=== PATIENT | male | born 1935 | race Caucasian/White ===

== ENCOUNTER 2022-08-29 12:28 | Outpatient (REF) | payer MEDICARE, BC, SELFPAY ==
[2022-08-29 12:42] LABS: Appearance Urine Slightly Cloudy (Clear); Bilirubin Urine Negative (Negative); Blood Urine Negative (Negative); Color Urine Yellow (Yellow); Glucose Urine Negative (Negative); Ketones Urine Negative (Negative); Leukocyte Esterase Urine Negative (Negative); Nitrite Urine Negative (Negative); Protein Urine Trace (Negative); Specific Gravity Urine 1.025 (1.000-1.030); Urobilinogen Urine 0.2 (0.2-1.0)
[2022-08-29 13:09] LABS: Bacteria Urine Few; RBC Urine 0-2 (0-2); Squamous Epithelial Cell Urine Few (None-Few); WBC Urine 0-2 (0-5)
== END 2022-08-29 12:29 | disposition home or self-care (01) ==
LOC: NPINS 12:28
PROVIDERS: PCP Family Medicine; Visit Provider Nurse Practitioner Gerontology
DX: R41.0 Disorientation, unspecified (principal)
CPT/HCPCS: 81003; 81015; 87086

== ENCOUNTER 2022-11-11 10:39 | Outpatient (REF) | payer MEDICARE, BC, SELFPAY ==
[2022-11-11 11:04] LABS: Appearance Urine Clear (Clear); Bilirubin Urine Negative (Negative); Blood Urine Trace-intact (Negative); Color Urine Yellow (Yellow); Glucose Urine Negative (Negative); Ketones Urine Negative (Negative); Leukocyte Esterase Urine Negative (Negative); Nitrite Urine Negative (Negative); Protein Urine Negative (Negative); Specific Gravity Urine 1.015 (1.000-1.030); Urobilinogen Urine 0.2 (0.2-1.0); pH Urine 5.5 (5.0-8.5)
[2022-11-11 11:10] LABS: Basophils Percent Auto 0.5 % (0.0-3.0); Eosinophils Percent Auto 1.6 % (0.0-7.0); Hematocrit 40.1 % (37.0-53.0); Hemoglobin* 13.8 gm/dL (13.5-17.5); Immature Granulocytes Pct Auto 0.5 %; Lymphocytes Percent Auto 10.5 % (20-44); Mean Corpuscular HGB Conc 34 gm/dL (32-36); Mean Corpuscular Hemoglobin 31 pg (26-34); Mean Corpuscular Volume 91 fL (80-100); Monocytes Percent Auto 8.6 % (0.0-11.0); Neutrophils Percent Auto 78.3 % (42.0-72.0); Platelet Count* 111 K/uL (140-440); RDW Coefficient of Variation % 12.7 % (11.5-15.5); Red Blood Count 4.42 m/uL (4.30-5.90)
[2022-11-11 11:11] LABS: Chloride* 100 mmol/L (96-114); Potassium* 3.9 mmol/L (3.6-5.1); Sodium* 135 mmol/L (135-149)
[2022-11-11 11:14] LABS: Anion Gap 11 mEq/L (7-15); Carbon Dioxide* 24 mmol/L (20-32); Creatinine* 0.8 mg/dL (0.5-1.5); Estimated Glomerular Filt Rate 86 ml/min; Slide Review Reflex No
[2022-11-11 11:15] LABS: Blood Urea Nitrogen* 11 mg/dL (7-30); Calcium* 8.9 mg/dL (8.4-10.6); Glucose* 185 mg/dL (60-115)
[2022-11-11 11:27] LABS: Bacteria Urine Few; RBC Urine 0-2 (0-2); WBC Urine 0-2 (0-5)
== END 2022-11-11 10:40 | disposition home or self-care (01) ==
LOC: NPINS 10:39
PROVIDERS: PCP Family Medicine; Visit Provider Family Medicine
DX: R41.0 Disorientation, unspecified (principal)
CPT/HCPCS: 80048; 81003; 81015; 85025; 87086

== ENCOUNTER 2023-03-08 10:20 | Emergency (ER) | payer MEDICARE, BC, SELFPAY ==
[2023-03-08] VITALS (29 sets, daily range): BP systolic 106–148; BP diastolic 74–101; PULSE 61–80; RESP 18; TEMP 36.8; O2SAT 85–96
--- NOTE | 2023-03-08 10:23 | ED.NURSE ---
Received report from Melanie, via phone NR nurse. Dr. Vaughan notified of reported symptoms from staff. MD directly to bedside.
--- NOTE | 2023-03-08 10:29 | CRLHL7_ITS ---
For Patients: As a result of the Cures Act, medical imaging exams and procedure reports are released immediately into your electronic medical record. You may view this report before your referring provider. If you have questions, please contact your health care provider. INDICATION: SOB HISTORY: Shortness of breath. COMPARISON: None. TECHNIQUE: Chest one-view. 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 Leads appear continuous. student financial services counselor leads overlie the patient. There is no acute airspace disease. There is no pneumothorax. Central airway is normal. Presumed ORIF changes of the right clavicular diaphysis. IMPRESSION: There is no acute airspace disease. Dictated by Henry Herrera MD @ 03/08/2023 11:04:52 AM Dictated by: Henry Herrera MD @ 03/08/2023 11:04:59 (Electronically Signed)
[2023-03-08 10:56] LABS: Basophils Absolute Auto 0.02 K/uL (0.00-0.30); Basophils Percent Auto 0.4 % (0.0-3.0); Eosinophils Absolute Auto 0.07 K/uL (0.00-0.50); Eosinophils Percent Auto 1.5 % (0.0-7.0); Hematocrit 41.7 % (37.0-53.0); Hemoglobin* 14.1 gm/dL (13.5-17.5); Immature Granulocytes Abs Auto 0.01 K/uL (0.00-0.30); Immature Granulocytes Pct Auto 0.2 %; Lymphocytes Percent Auto 13.7 % (20-44); Mean Corpuscular HGB Conc 34 gm/dL (32-36); Mean Corpuscular Hemoglobin 31 pg (26-34); Mean Corpuscular Volume 93 fL (80-100); Monocytes Percent Auto 12.2 % (0.0-11.0); Neutrophils Absolute Auto 3.47 K/uL (1.7-7.0); Platelet Count* 108 K/uL (140-440); Red Blood Count 4.51 m/uL (4.30-5.90); White Blood Count* 4.82 K/uL (4.50-11.00)
[2023-03-08 11:08] LABS: HCO3 VBG 27 mmol/L (21-28); PCO2 VBG 41 mmHG (40-50); PO2 VBG 29.6 mmHG (25-47); pH VBG 7.424 (7.32-7.43)
[2023-03-08 11:09] LABS: Slide Review Reflex No
[2023-03-08 11:10] LABS: Lactate Sepsis w/Reflex* 1.3 mmol/L (0.5-1.9)
[2023-03-08 11:19] LABS: INR 1.48 (0.91-1.10)
--- NOTE | 2023-03-08 11:21 | ED.GENADULT ---
HPI - General Adult General Date Seen: 03/08/23 Chief complaint: Weakness Stated complaint: Pain Time Seen by Provider: 03/08/23 10:27 Source: patient, family and RN notes reviewed Mode of arrival: wheelchair Limitations: no limitations History of Present Illness HPI narrative: Patient is an 87-year-old male brought in by his son for evaluation of shortness of breath and weakness. He lives at a care facility in assisted living, apparently the reports this morning that he had left arm weakness, right leg weakness and left facial weakness but patient and his son both deny any focal weakness. He says he has been short of breath for the past couple of days, worse since last night. He has had a little bit of a cough, denies fevers. He says he has been generally weak, usually uses a walker to get around but his son says he was not able to walk at all this morning. No speech difficulties. No vomiting or diarrhea. No black or bloody stools. Additional history provided when different children arrived, patient apparently has been having problems with shortness of breath for a number of weeks now. Has a cardiology appointment scheduled this Friday for evaluation of that. He is not on home oxygen, apparently just has periods of time where he complains of shortness of breath and breathes really heavily. This then resolves without intervention. Related Data Home Medications Medication Instructions Recorded Confirmed acetaminophen 325 mg tablet 650 mg PO Q4H PRN mild pain 03/08/23 03/08/23 apixaban 5 mg tablet (Eliquis) 5 mg PO BID 03/08/23 03/08/23 aspirin 81 mg tablet,delayed 81 mg PO DAILY 03/08/23 03/08/23 release atorvastatin 10 mg tablet 10 mg PO DAILY 03/08/23 03/08/23 donepezil 10 mg tablet 10 mg PO QPM 03/08/23 03/08/23 gabapentin 100 mg capsule 400 mg PO BID 03/08/23 03/08/23 levetiracetam 500 mg tablet 500 mg PO BID 03/08/23 03/08/23 lisinopril 20 mg tablet 20 mg PO DAILY 03/08/23 03/08/23 loperamide 2 mg capsule 2 mg PO Q4H PRN diarrhea 03/08/23 03/08/23 melatonin 3 mg tablet 3 mg PO HS PRN 03/08/23 03/08/23 metoprolol succinate 25 mg 25 mg PO BID 03/08/23 03/08/23 tablet,extended release 24 hr peg 400-propylene glycol 0.4 %-0.3 1 drp ophthalmic (eye) QPM 03/08/23 03/08/23 % eye gel drops (Systane Gel) sennosides 8.6 mg tablet (senna) 8.6 mg PO QAM 03/08/23 03/08/23 Allergies Allergy/AdvReac Type Severity Reaction Status Date / Time fexofenadine Allergy Unknown Verified 03/08/23 10:34 Iodinated Contrast Media Allergy Unknown Verified 03/08/23 10:34 pseudoephedrine Allergy Verified 03/08/23 10:34 Review of Systems Status of ROS: Reports: 10 or more systems reviewed and unremarkable except as noted in History and below [facility] Social History Smoking Status: Never smoker Do you use any of these nicotine containing products: None Second hand tobacco smoke exposure: No How often do you have a drink containing alcohol: never How often do you have six or more drinks on one occasion: Never AUDIT-C Alcohol total score: 0 Non-prescribed substance use: denies use service: Yes Exam Narrative: Exam Narrative: Vital signs as noted above. In general, an alert, nontoxic elderly male. Required 2 person assist to transition from wheelchair to bed. Head: Normocephalic, atraumatic. Eyes: Pupils are equal reactive. Extraocular movements are full. Conjunctivae are normal. ENT: Mucous membranes are moist. Throat is normal. Neck: Supple without lymphadenopathy. Heart: Regular rate and rhythm. No murmur or rub. Lungs: Breath sounds are somewhat coarse bilaterally, no wheezing, mildly increased work of breathing. Abdomen: Soft and nontender. Protuberant. Extremities: Well perfused. No edema. No calf tenderness. Pulses intact. Neurologic: Patient is alert and oriented to person and place. Speech is fluent. There is mild asymmetry on the left side of his mouth when he talks, but face is otherwise symmetric. Strength is equal in upper lower extremities. Affect: Normal. Skin: Warm and dry. Well perfused. Const: Vital Signs, click to edit/add: Vital Signs - 24 hr 03/08/23 11:15 03/08/23 11:30 03/08/23 11:32 Pulse Rate 65 70 71 Blood Pressure 124/78 Pulse Oximetry 96 94 89 03/08/23 11:45 03/08/23 12:00 03/08/23 12:02 Pulse Rate 61 65 62 Blood Pressure 106/79 Pulse Oximetry 89 85 L 85 L 03/08/23 12:15 03/08/23 12:30 03/08/23 12:32 Pulse Rate 61 70 70 Blood Pressure 134/75 Pulse Oximetry 86 L 95 89 03/08/23 12:45 03/08/23 13:00 03/08/23 13:02 Pulse Rate 76 66 66 Blood Pressure 113/77 Pulse Oximetry 91 95 90 03/08/23 13:17 03/08/23 13:30 03/08/23 13:33 Pulse Rate 75 68 71 Blood Pressure 118/88 Pulse Oximetry 92 93 96 03/08/23 13:45 03/08/23 14:00 03/08/23 14:02 Pulse Rate 74 80 76 Blood Pressure 131/93 H Pulse Oximetry 92 94 94 03/08/23 14:15 03/08/23 14:30 03/08/23 14:32 Pulse Rate 72 79 74 Blood Pressure 136/94 H Pulse Oximetry 93 96 93 03/08/23 14:33 03/08/23 15:02 Pulse Rate 77 Blood Pressure 148/74 H Pulse Oximetry 90 Documenting provider has reviewed patient's vital signs: yes Course Course ED Course: Following initial evaluation, patient had labs drawn and had an x-ray of his chest. He also had an EKG which by my review showed a wide complex regular rhythm, he does have a pacemaker, I do not see obvious pacer spikes but his EKG more the pathology is consistent with a paced rhythm verses left bundle-branch block. A single PVC. Labs are notable for a normal white blood cell count of 4.8, normal hemoglobin, platelets are slightly low at 108,000 hundred eight thousand. His INR is 1.5, consistent with anticoagulation. Venous gas is normal, pCO2 is 41, pH is 7.42. Metabolic panel shows normal electrolytes, BUN of 19 creatinine of 1.1, blood sugar of 125. Lactate is normal at 1.3. LFTs are essentially normal his total bilirubin is 1.7, direct is 0.2, AST and ALT are normal, alk-phos is 83. Patient had a sandwich here, is feeling improved. Was up with his walker with minimal assistance. He does live at an assisted living where he can call for help at any time. He is no longer short of breath, O2 sats remain normal neurologic exam at baseline. Discussion with patient and his family in terms of observation admission versus going home at this time they would prefer to go home. They will follow up with Cardiology as planned. Return at any time for acute worsening or new symptoms. Vital Signs Vital signs: Initial Vital Signs Temperature 98.3 F 03/08/23 10:31 Temperature Source Temporal Artery Scan 03/08/23 10:31 Pulse Rate 65 03/08/23 10:31 Respiratory Rate 18 03/08/23 10:31 Blood Pressure 140/101 H 03/08/23 10:31 Blood Pressure Mean 114 H 03/08/23 10:31 Blood Pressure Position Sitting 03/08/23 10:31 Pulse Oximetry 94 03/08/23 10:31 Oxygen Delivery Method Room Air 03/08/23 10:31 Vital Signs Temperature 98.3 F 03/08/23 10:31 Pulse Rate 65 03/08/23 10:31 Respiratory Rate 18 03/08/23 10:31 Blood Pressure 140/101 H 03/08/23 10:31 Pulse Oximetry 94 03/08/23 10:31 Oxygen Delivery Method Room Air 03/08/23 10:31 Temperature 98.3 F 03/08/23 10:31 Pulse Rate 77 03/08/23 14:33 Respiratory Rate 18 03/08/23 10:31 Blood Pressure 148/74 H 03/08/23 15:02 Pulse Oximetry 90 03/08/23 14:33 Oxygen Delivery Method Room Air 03/08/23 10:31 Medical Decision Making Lab Data Labs: Lab Results 03/08/23 03/08/23 03/08/23 Range/Units 10:30 10:48 11:00 WBC 4.82 (4.50-11.00) K/uL RBC 4.51 (4.30-5.90) m/uL Hgb 14.1 (13.5-17.5) gm/dL Hct 41.7 (37.0-53.0) % MCV 93 (80-100) fL MCH 31 (26-34) pg MCHC 34 (32-36) gm/dL RDW Coeff of Edward 13.0 (11.5-15.5) % Plt Count 108 L (140-440) K/uL Neut % (Auto) 72.0 (42.0-72.0) % Lymph % (Auto) 13.7 L (20-44) % [place] % (Auto) 12.2 H (0.0-11.0) % Eos % (Auto) 1.5 (0.0-7.0) % Baso % (Auto) 0.4 (0.0-3.0) % Neut # (Auto) 3.47 (1.7-7.0) K/uL Lymph # (Auto) 0.70 L (0.90-2.90) K/uL [place] # (Auto) 0.60 (0.00-0.90) K/UL Eos # (Auto) 0.07 (0.00-0.50) K/uL Baso # (Auto) 0.02 (0.00-0.30) K/uL Abs Immat Gran (auto) 0.01 (0.00-0.30) K/uL Imm/Tot Granulo (auto) 0.2 % INR 1.48 H (0.91-1.10) VBG pH 7.424 (7.32-7.43) VBG pCO2 41 (40-50) mmHG VBG pO2 29.6 (25-47) mmHG VBG HCO3 27 (21-28) mmol/L Sodium 137 (135-149) mmol/L Potassium 4.5 (3.6-5.1) mmol/L Chloride 103 (96-114) mmol/L Carbon Dioxide 26 (20-32) mmol/L Anion Gap 8 (7-15) mEq/L BUN 19 (7-30) mg/dL Creatinine 1.1 (0.5-1.5) mg/dL Estimated GFR 65 ml/min Glucose 125 H (60-115) mg/dL Lactate 1.3 (0.5-1.9) mmol/L Calcium 8.5 (8.4-10.6) mg/dL Total Bilirubin 1.7 H (0.1-1.5) mg/dL Direct Bilirubin 0.2 (0.0-0.5) mg/dL AST 28 (12-35) U/L ALT 24 (4-50) U/L Alkaline Phosphatase 83 (40-150) U/L C-Reactive Protein 1.6 H (0.5-1.0) mg/dL NT-Pro-B Natriuret Pep 5960 pg/mL Total Protein 6.4 (6.0-8.3) g/dL Albumin 4.0 (3.3-5.0) g/dL TSH 2.260 (0.270-4.200) uIU/mL SARS-CoV-2 (PCR) Negative SARS-CoV-2 (Negative) Influenza Type A (PCR) Negative PCR FLU A (Negative) Influenza Type B (PCR) Negative PCR FLU B (Negative) RSV (PCR) Negative PCR RSV (Negative) POC Troponin I 0.01 (0.01-0.04) ng/ml Discharge Plan Discharge Clinical Impression: Weakness Patient Disposition: Home w/ Parent or Adult Condition: Improved Instructions: Weakness (ED) Additional Instructions: Cardiology follow-up as planned. For acute worsening, severe shortness of breath, fevers, inability to manage at home, return to the emergency department. Prescriptions: No Action acetaminophen 325 mg tablet 650 mg PO Q4H PRN (Reason: mild pain) loperamide 2 mg capsule 2 mg PO Q4H PRN (Reason: diarrhea) atorvastatin 10 mg tablet 10 mg PO DAILY levetiracetam 500 mg tablet 500 mg PO BID donepezil 10 mg tablet 10 mg PO QPM lisinopril 20 mg tablet 20 mg PO DAILY gabapentin 100 mg capsule 400 mg PO BID Eliquis 5 mg tablet 5 mg PO BID melatonin 3 mg tablet 3 mg PO HS PRN sennosides [senna] 8.6 mg tablet 8.6 mg PO QAM metoprolol succinate 25 mg tablet extended release 24 hr 25 mg PO BID Systane Gel 0.4-0.3 % drops,gel 1 drp ophthalmic (eye) QPM aspirin 81 mg tablet,delayed release (DR/EC) 81 mg PO DAILY Follow Up/Referrals: Yehuda Matias MD [Staff Physician] - Stand Alone [facility] Inst[facility]
[2023-03-08 11:23] LABS: Chloride* 103 mmol/L (96-114); Sodium* 137 mmol/L (135-149)
[2023-03-08 11:24] LABS: Potassium* 4.5 mmol/L (3.6-5.1)
[2023-03-08 11:27] LABS: Alanine Aminotransferase* 24 U/L (4-50); Alkaline Phosphatase* 83 U/L (40-150); Anion Gap 8 mEq/L (7-15); Aspartate Amino Transferase* 28 U/L (12-35); Bilirubin Direct* 0.2 mg/dL (0.0-0.5); Bilirubin Total* 1.7 mg/dL (0.1-1.5); Blood Urea Nitrogen* 19 mg/dL (7-30); Carbon Dioxide* 26 mmol/L (20-32); Creatinine* 1.1 mg/dL (0.5-1.5); Estimated Glomerular Filt Rate 65 ml/min; Glucose* 125 mg/dL (60-115); Total Protein* 6.4 g/dL (6.0-8.3)
[2023-03-08 11:28] LABS: Calcium* 8.5 mg/dL (8.4-10.6)
[2023-03-08 11:30] LABS: C Reactive Protein* 1.6 mg/dL (0.5-1.0)
[2023-03-08 11:40] LABS: NT Pro B Type NatriureticPept* 5960 pg/mL
[2023-03-08 11:43] LABS: PCR FLU A Negative PCR FLU A (Negative); PCR FLU B Negative PCR FLU B (Negative); PCR RSV Negative PCR RSV (Negative); Troponin, Point-of-Care* 0.01 ng/ml (0.01-0.04)
[2023-03-08 11:52] LABS: SARS PCR* Negative SARS-CoV-2 (Negative)
--- NOTE | 2023-03-08 13:53 | ED.NURSE ---
was able to ambulate with assist of one. did get to room 3 from room 5. was incontinent of urine.
--- NOTE | 2023-03-08 15:07 | ED.NURSE ---
family are willing to take him back to [facility]. [place] fritz was called and informed of him returning.
== END 2023-03-08 15:24 | disposition home or self-care (01) ==
PROVIDERS: Emergency Provider Emergency Medicine; PCP Family Medicine
DX: R53.1 Weakness (principal)
CPT/HCPCS: 36415; 71045; 80048; 80076; 82803; 83605; 83880; 84443; 84484; 85025; 85610; 86140; 87040; 87631; 94761; 99284

== ENCOUNTER 2023-03-18 11:29 | Outpatient (REF) | payer MEDICARE, BC, SELFPAY ==
[2023-03-18 12:44] LABS: Chloride* 102 mmol/L (96-114); Potassium* 4.9 mmol/L (3.6-5.1); Sodium* 138 mmol/L (135-149)
[2023-03-18 12:47] LABS: Anion Gap 9 mEq/L (7-15); Blood Urea Nitrogen* 22 mg/dL (7-30); Carbon Dioxide* 27 mmol/L (20-32); Estimated Glomerular Filt Rate 73 ml/min; Glucose* 93 mg/dL (60-115)
== END 2023-03-18 11:30 | disposition home or self-care (01) ==
LOC: NPINS 11:29
PROVIDERS: PCP Family Medicine; Visit Provider Nurse Practitioner Gerontology
DX: I48.0 Paroxysmal atrial fibrillation (principal); I63.50 Cerebral infarction due to unspecified occlusion or stenosis of unspecified cerebral artery
CPT/HCPCS: 80048

== ENCOUNTER 2023-05-13 11:28 | Outpatient (REF) | payer MEDICARE, BC, SELFPAY ==
[2023-05-13 13:32] LABS: Basophils Absolute Auto 0.02 K/uL (0.00-0.30); Basophils Percent Auto 0.4 % (0.0-3.0); Eosinophils Percent Auto 14.9 % (0.0-7.0); Hematocrit 40.9 % (37.0-53.0); Hemoglobin* 13.7 gm/dL (13.5-17.5); Lymphocytes Absolute Auto 1.21 K/uL (0.90-2.90); Lymphocytes Percent Auto 25.3 % (20-44); Mean Corpuscular HGB Conc 34 gm/dL (32-36); Mean Corpuscular Hemoglobin 31 pg (26-34); Mean Corpuscular Volume 93 fL (80-100); Monocytes Percent Auto 9.4 % (0.0-11.0); Neutrophils Absolute Auto 2.39 K/uL (1.7-7.0); Platelet Count* 132 K/uL (140-440); RDW Coefficient of Variation % 13.5 % (11.5-15.5); Red Blood Count 4.42 m/uL (4.30-5.90); White Blood Count* 4.78 K/uL (4.50-11.00)
[2023-05-13 13:40] LABS: Slide Review Reflex No
== END 2023-05-13 11:29 | disposition home or self-care (01) ==
LOC: NPINS 11:28
PROVIDERS: PCP Family Medicine; Visit Provider Psychiatry & Neurology Neurology
DX: R41.0 Disorientation, unspecified (principal)
CPT/HCPCS: 85025

== ENCOUNTER 2023-06-28 17:12 | Outpatient (REF) | payer MEDICARE, BC, SELFPAY ==
[2023-06-28 19:08] LABS: Appearance Urine Clear (Clear); Bilirubin Urine Negative (Negative); Blood Urine Negative (Negative); Color Urine Yellow (Yellow); Glucose Urine Negative (Negative); Ketones Urine Negative (Negative); Leukocyte Esterase Urine Negative (Negative); Nitrite Urine Negative (Negative); Protein Urine Negative (Negative); Specific Gravity Urine 1.015 (1.000-1.030); Urobilinogen Urine 0.2 (0.2-1.0); pH Urine 5.5 (5.0-8.5)
[2023-06-28 19:19] LABS: RBC Urine 0-2 (0-2); WBC Urine 0-2 (0-5)
== END 2023-06-28 17:13 | disposition home or self-care (01) ==
LOC: NPINS 17:12
PROVIDERS: PCP Family Medicine; Visit Provider Family Medicine
DX: R35.0 Frequency of micturition (principal)
CPT/HCPCS: 81001; 87086

== ENCOUNTER 2023-10-12 14:55 | Outpatient (CLI) | payer BC, SELFPAY ==
--- OUTSIDE RECORDS SUMMARY | 2023-10-13 19:00 | XMS_ITS | Referral Summary ---
Author Organization [place] Address [address] [place] [id number] Care Team Providers Care Agribusiness Professor Name Role Phone Yehuda Matias Primary Care Provider [phone] Social History Tobacco Use Types Packs/Day Years Used Date Smoking Tobacco: Never Assessed Adolescent Education Answer Date Record ed Getting School Help Needed Not on file 12/15 Sex and Gender Information Value Date Recorded Sex Assigned at Not on file Gender Identity Not on file Sexual Orientation Not on file Plan of Treatment Not on file Care Teams Agribusiness Professor Relationship Specialty Start Date End Date Yehuda Matias [address] [place] [address] PCP - General Family Medicine 09/12/21
--- OUTSIDE RECORDS SUMMARY | 2023-10-13 19:00 | XMS_ITS | Clinical Summary ---
Author Organization [facility] Address [place], [place] [address] Care Team Providers Care Aircraft Restorer Name Role Phone To Mata MD Primary Care Provider [phone] Allergies Active Allergy Reactions Criticality Noted Date Comments Iodinated Contrast Media Rash 01/18/2014 Fexofenadine Tongue Spasm Low 01/15/2019 Pseudoephedrine Tongue Spasm Low 01/15/2019 Medications Medication Sig Dispensed Refills Start Date End Date Status vit C-E-zinc ze-tgmk-xji-zeax (ICaps AREDS2) 250 mg-200 unit -12.5 mg-1 [...] Tablet 3 02/08/2022 Active miscellaneous medical supply [facility] EZ Tears gel caps. 2 [...] Type Department Care Team Description 08/21/2023 Telephone [employer] [facility] [address] [facility] [address] [place] [address] Kwabena White MD Questions 08/19/2023 Travel from Last 3 Months Immunizations Name Administration Dates Next Due AMB INFLUENZA IIV3 (AGE 65+ YRS) PF (Flu Clinic Only) 12/31/2018,12/16/2017 Amb Influenza, Inact (High-d ose) (Flu Clinic Only) 12/08/2013 COVID-19 vaccine (UFOstart AG-Bio NTech 30mcg/0.3mL) PFSAKINA 12/06/2020,05/10/2020,04/19/2020 Influenza RIV4 (Age [...] Comments Blood Pressure 124/70 03/14/2023 2:00 PM CHIEF CREW SCHEDULER Pulse 65 03/14/2023 2:00 PM CHIEF CREW SCHEDULER Temperature 36.6 ??C (97.9 ??F) 06/13/2022 9:00 AM CD T Respiratory Rate 16 06/12/2022 8:01 PM CDT Oxygen Saturation 94% 03/14/2023 2:00 PM CHIEF CREW SCHEDULER Inhaled Oxygen Concentration - - Weight 79.3 kg (174 lb 14.4 oz) 03/14/2023 2:00 PM CHIEF CREW SCHEDULER Height 165.1 cm (5' 5) 03/14/2023 2:00 PM CHIEF CREW SCHEDULER Body Mass Index 29.1 03/14/2023 2:00 PM CHIEF CREW SCHEDULER Plan of Treatment Upcoming Encounters Date Type Department Care Team (Late st Contact Info) Description 12/19/2023 Cardiac Device Check [employer] [facility] [phone] Health Maintenance Due Date Last Done Comments [...] Documents on File Type Date Recorded Patient Population Health Coach Expl anation Power of Missile Control Pilot 06/26/1999 06/26/1999 HEALTHCARE POWER OF DEPUTY K 9 * Full Code (Latest Code Status on [...] Code Status Discussion: Reviewed Preferences Care Teams Aircraft Restorer Relationship Specialty Start Date End Date To Mata MD [address] [place] [id number] PCP - General Family Practice 08/02/22
--- OUTSIDE RECORDS SUMMARY | 2023-10-13 19:00 | XMS_ITS | Clinical Summary ---
Author Organization [place] Address [address] [place] [address] Care Team Providers Care Machine Packager Name Role Phone Yehuda Matias Primary Care Provider Social History Tobacco Use Types Packs/Day Years [...] age to complete this topic Care Teams Machine Packager Relationship Specialty Start Date End Date Yehuda Matias [address] [place] [address] PCP - General Family Medicine 09/12/21
== END 2023-10-12 14:56 | disposition home or self-care (01) ==
LOC: AMB 10-13 18:59
PROVIDERS: PCP Family Medicine; Visit Provider Family Medicine
DX: R42 Dizziness and giddiness (principal)
CPT/HCPCS: A0425; A0429

== ENCOUNTER 2023-10-12 15:17 | Emergency (ER) | payer BC, SELFPAY ==
[2023-10-12 15:19] VITALS: BP 140/81; PULSE 83; RESP 22; TEMP 36.6; O2SAT 97; BMI 25.8
--- OUTSIDE RECORDS SUMMARY | 2023-10-12 15:51 | XMS_ITS | Referral Summary ---
Author Organization [facility] Address [address] [place] [id number] Care Team Providers Care Taxi Driver Supervisor Name Role Phone Yehuda Matias Primary Care Provider [phone] Social History Tobacco Use Types Packs/Day Years Used Date Smoking Tobacco: Never Assessed Adolescent Education Answer Date Record ed Getting School Help Needed Not on file 12/15 Sex and Gender Information Value Date Recorded Sex Assigned at Not on file Gender Identity Not on file Sexual Orientation Not on file Plan of Treatment Not on file Care Teams Taxi Driver Supervisor Relationship Specialty Start Date End Date Yehuda Matias [address] [place] [address] PCP - General Family Medicine 09/12/21
--- OUTSIDE RECORDS SUMMARY | 2023-10-12 15:51 | XMS_ITS | Clinical Summary ---
Author Organization [facility] Address [place], [place] [address] Care Team Providers Care Information Systems Manager Name Role Phone To Mata MD Primary Care Provider [phone] Allergies Active Allergy Reactions Criticality Noted Date Comments Iodinated Contrast Media Rash 01/18/2014 Fexofenadine Tongue Spasm Low 01/15/2019 Pseudoephedrine Tongue Spasm Low 01/15/2019 Medications Medication Sig Dispensed Refills Start Date End Date Status vit C-E-zinc wf-sidw-rjl-zeax (ICaps AREDS2) 250 mg-200 unit -12.5 mg-1 mg cap Take 1 Capsule by mouth two times daily. 0 06/02/2020 Active cyanocobalamin (VITAMIN B12) 1,000 mcg tabletIndications:V itamin B12 deficiency Take 1 Tablet (1,000 mcg) by mouth once daily. 90 Tablet 3 02/07/2021 Active Eliquis 5 mg tabletIndications:P aroxysmal atrial fibrillation (HC) TAKE ONE TABLET BY MOUTH TWICE DAILY 180 Tablet 3 10/23/2021 Active atorvastatin (LIPITOR) 10 mg tabletIndications:M ixed hyperlipidemia Take 1 Tablet (10 mg) by mouth at bedtime. 90 Tablet 3 02/08/2022 Active gabapentin (NEURONTIN) 100 mg capsuleIndications: Peripheral sensory neuropathy Take 4 Capsules (400 mg) by mouth at bedtime. 360 Capsule 3 02/08/2022 Active lisinopriL (PRINIVIL; ZESTRIL) 20 mg tabletIndications:H ypertension, unspecified type Take 1 Tablet (20 mg) by mouth once daily. 90 Tablet 3 02/08/2022 Active miscellaneous medical supply [facility] EZ Tears gel caps. 2 gel caps daily. 0 04/15/2022 Active levETIRAcetam (Keppra) 500 mg tablet Take 500 mg by mouth two times daily. Active acetaminophen (TYLENOL) 325 mg tabletIndications:P ain Take 2 Tablets (650 mg) by mouth every 4 hours if needed for Pain (For mild pain.). Max acetaminophen dose: 4000mg in 24 hrs. 0 06/12/2022 Active polyethylene glycol (MIRALAX; GLYCOLAX) 17 g per packet packetIndications:C hronic constipation Mix 17 g in liquid then take by mouth once daily if needed for Constipation. 0 06/12/2022 Active sennosides (SENNA) 8.6 mg tabletIndications:C hronic constipation Take 2 Tablets (17.2 mg) by mouth 2 times daily if needed for Constipation. 0 06/12/2022 Active metoprolol succinate (Toprol XL) 25 mg Sustained-Release tabletIndications:P aroxysmal atrial fibrillation (HC),Essential hypertension Take 1 Tablet (25 mg) by mouth two times daily. 45 Tablet 1 06/13/2022 Active melatonin 3 mg tabletIndications:D ifficulty sleeping Take 1 Tablet (3 mg) by mouth at bedtime if needed, may repeat once for Sleep. 0 06/13/2022 Active aspirin chewable 81 mg chewable tabletIndications:C erebrovascular disease Chew 1 Tablet (81 mg) by mouth once daily with a meal. 0 06/13/2022 Active donepeziL (ARICEPT) 10 mg tabletIndications:S eizure disorder (HC) Take 1 Tablet (10 mg) by mouth at bedtime. 03/14/2023 Active furosemide (LASIX) 20 mg tabletIndications:S OB (shortness of breath) Take 1 Tablet (20 mg) by mouth every morning. 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 Mixed hyperlipidemia 12/14/2009 Impaired fasting glucose 12/14/2009 Paroxysmal atrial fibrillation 07/10/2007 Unspecified essential hypertension TREMOR Severe aortic stenosis Resolved Problems Problem Noted Date Diagnosed Date Resolved Date Anticoagulation monitoring, DOAC 09/14/2020 08/08/2022 Anticoagulation monitoring, INR range 2-3 07/21/2013 09/14/2020 Encounter for Long-Term (Cur rent) Use of Anticoagulants 07/10/2007 07/21/2013 Overview: INR Goal Range: 2.0 - 3.0 Encounters Date Type Department Care Team Description 08/21/2023 Telephone [facility] [address] [facility] [address] [place] [address] Kwabena White MD Questions 08/19/2023 Travel from Last 3 Months Immunizations Name Administration Dates Next Due AMB INFLUENZA IIV3 (AGE 65+ YRS) PF (Flu Clinic Only) 12/31/2018,12/16/2017 Amb Influenza, Inact (High-d ose) (Flu Clinic Only) 12/08/2013 COVID-19 vaccine (Best Response Strategies-Bio NTech 30mcg/0.3mL) PFSAKINA 12/06/2020,05/10/2020,04/19/2020 Influenza RIV4 (Age 18+ Year s) PRESERV FREE 12/16/2019 Influenza, High-dose Inactivated 01/04/2016,01/08 Influenza, High-dose Quadriv alent Inactivated 12/24/2021 Influenza, IIV3 (Age >=3 years) 12/23/19 13,11/21/2011,12/14/2009,2008,01/06/2008,12/31/2004,01/17/2004,1 04/26/2002 Influenza, Inactivated AIIV4 (Age 65+ Years) Preserv Free 12/06/2020 Influenza, Inactivated IIV3 (Age 65+ Years) Preserv Free 01/14/2017 Pneumococcal Conj 20-valent (Prevnar 20) 05/15/2022 Pneumococcal Poly,23-Valent (Pneumovax) 03/10/2007 Pneumococcal conj 13-Valent (Prevnar 13) 07/21/2014 Td, Preservative Free (age > = 7 Years) 12/15/2008 Tdap 01/21/2012 Zoster (Shingrix-RZV, recombinant) 12/04/2018, Zoster (Zostavax-ZVL, live) 03/10/2012 Family History Medical History Relation Name Comments Arthritis Mother at 72, cau se uncertain Anesthesia Problem No Family History Relation Name Status Comments Mother Social History Tobacco Use Types Packs/Day Years Used Date Smoking Tobacco: Former Smokeless Tobacco: Former Chew Tobacco Cessation:Counseling Given: No Comments:quit years ago Alcohol Use Standard Drinks/Week Comments No 0 (1 standard drink = 0.6 oz pur e alcohol) PHQ-2 Answer Date Recorded PHQ-2 TOTAL SCORE 0 02/08/2022 Social Connections Answer Date Recorded Frequency of Communication with Friends and Fami ly Not on file 10/08/2022 Financial Resource Strain Answer Date R ecorded Difficulty of Paying Living Expenses 3 10/03/2021 Difficulty of Paying Living Expenses Not on file 10/03/2021 Food Insecurity Answer Date Recorded Worried About Running Out of Food in the Last Ye ar 1 10/03/2021 Transportation Needs Answer Date Record ed Lack of Transportation (Medical) 1 10/03/2021 Housing Stability Answer Date Recorded Unable to Pay for Housing in the Last Year 1 10/03/2021 Sex and Gender Information Value Date Recorded Sex Assigned at Not on file Gender Identity Not on file Sexual Orientation Not on file Obstetrics History Last Filed Vital Signs Vital Sign Reading Time Taken Comments Blood Pressure 124/70 03/14/2023 2:00 PM SHARPLES MACHINE OPERATOR Pulse 65 03/14/2023 2:00 PM SHARPLES MACHINE OPERATOR Temperature 36.6 ??C (97.9 ??F) 06/13/2022 9:00 AM CD T Respiratory Rate 16 06/12/2022 8:01 PM CDT Oxygen Saturation 94% 03/14/2023 2:00 PM SHARPLES MACHINE OPERATOR Inhaled Oxygen Concentration - - Weight 79.3 kg (174 lb 14.4 oz) 03/14/2023 2:00 PM SHARPLES MACHINE OPERATOR Height 165.1 cm (5' 5) 03/14/2023 2:00 PM SHARPLES MACHINE OPERATOR Body Mass Index 29.1 03/14/2023 2:00 PM SHARPLES MACHINE OPERATOR Plan of Treatment Upcoming Encounters Date Type Department Care Team (Late st Contact Info) Description 12/19/2023 Cardiac Device Check [employer] [facility] [phone] Health Maintenance Due Date Last Done Comments Tetanus booster 01/20/2022 01/21/2012, 12/15/2008 COVID-19 vaccine series (24 season) 2022 12/06/2020, 05/10/2020, 04/19/2020 Depression screening for age 12+ 02/08/2023 02/08/2022, 02/07/2021, 02/07/2021, Additional history exists Medicare Wellness for age 65+ 02/09/2023, 02/07/2021, 01/20/2020, Additional history exists Influenza for age 65+ 11/09/2023 12/24/2021 , 12/06/2020, 12/16/2019, Additional history exists BMI (ht and wt on same day) for age 18+ 03/14/2024 03/14/2023, 08/02/2022, 05/29/2022, Additional history exists Tdap Completed 01/21/2012 Zoster (shingles) series for age 50+ Completed 12/04/2018, 09/29/2018, 03/10/2012 Pneumococcal series for age 65+ Completed 05/15/2022, 07/21/2014, 03/10/2007 Advance Directives Documents on File Type Date Recorded Patient German Tutor Expl anation Power of Kettle Cleaner 06/26/1999 06/26/1999 HEALTHCARE POWER OF ANVIL WORKER * Full Code (Latest Code Status on File) Date Activated Date Inactivated Comments 06/08/2022 12:13 AM 06/13/2022 6:19 PM Question Answer Comments Code Status Discussion: Reviewed Preferences * Full Code Date Activated Date Inactivated Comments 06/05/2022 10:08 AM 06/06/2022 3:32 PM Question Answer Comments Code Status Discussion: Discussed * Full Code Date Activated Date Inactivated Comments 05/08/2022 9:23 AM 05/08/2022 4:49 PM Question Answer Comments Code Status Discussion: Reviewed Preferences Care Teams Information Systems Manager Relationship Specialty Start Date End Date To Mata MD [address] [place] [id number] PCP - General Family Practice 08/02/22
--- OUTSIDE RECORDS SUMMARY | 2023-10-12 15:51 | XMS_ITS | Clinical Summary ---
Author Organization [facility] Address [address] [place] [id number] Care Team Providers Care Product Promoter Sales Person Name Role Phone Yehuda Matias Primary Care Provider [phone] Social History Tobacco Use Types Packs/Day Years Used Date Smoking Tobacco: Never Assessed Adolescent Education Answer Date Record ed Getting School Help Needed Not on file 12/15 Sex and Gender Information Value Date Recorded Sex Assigned at Not on file Gender Identity Not on file Sexual Orientation Not on file Plan of Treatment Health Maintenance Due Date Last Done Comments ADVANCE CARE PLANNING 1935 ANNUAL REVIEW OF HM ORDERS 1935 RSV VACCINE ( & 60+) (1 - 1-dose 60+ series) 1995 FALL RISK ASSESSMENT 05/31/2000 DTAP/TDAP/TD IMMUNIZATION (2 - Td or Tdap) 01/20/2022 01/21/2012, 12/15/2008 MEDICARE ANNUAL WELLNESS VISIT 02/07/2022 02/07/2021, 01/20/2020 COVID-19 Vaccine ( season) 2022 06/15/2021, 12/06/2020, 05/10/2020, Additional history exists PHQ-2 (once per calendar year) 2023 INFLUENZA VACCINE (#1) 2023 , 12/16/2019, 12/31/2018, Additional history exists Pneumococcal Vaccine: 65+ Years Completed 07/21/2014, 03/10/2007 ZOSTER IMMUNIZATION Completed 12/04/2018, 09/29/2018, 03/10/2012 HPV IMMUNIZATION Aged Out No longer e ligible based on patient's age to complete this topic IPV IMMUNIZATION Aged Out No longer e ligible based on patient's age to complete this topic MENINGITIS IMMUNIZATION Aged Out No l onger eligible based on patient's age to complete this topic RSV MONOCLONAL ANTIBODY Aged Out No l onger eligible based on patient's age to complete this topic Care Teams Product Promoter Sales Person Relationship Specialty Start Date End Date Yehuda Matias [address] [place] [address] PCP - General Family Medicine 09/12/21
[2023-10-12 16:04] LABS: Basophils Absolute Auto 0.03 K/uL (0.00-0.30); Basophils Percent Auto 0.6 % (0.0-3.0); Hematocrit 41.5 % (37.0-53.0); Hemoglobin* 14.1 gm/dL (13.5-17.5); Immature Granulocytes Abs Auto 0.01 K/uL (0.00-0.30); Immature Granulocytes Pct Auto 0.2 %; Lymphocytes Percent Auto 7.8 % (20-44); Mean Corpuscular HGB Conc 34 gm/dL (32-36); Mean Corpuscular Hemoglobin 32 pg (26-34); Mean Corpuscular Volume 94 fL (80-100); Monocytes Percent Auto 7.6 % (0.0-11.0); Neutrophils Absolute Auto 3.88 K/uL (1.7-7.0); Neutrophils Percent Auto 71.8 % (42.0-72.0); Platelet Count* 108 K/uL (140-440); RDW Coefficient of Variation % 13.4 % (11.5-15.5); Red Blood Count 4.44 m/uL (4.30-5.90)
[2023-10-12 16:05] LABS: Slide Review Reflex No
[2023-10-12 16:17] LABS: Albumin* 3.7 g/dL (3.3-5.0); Chloride* 104 mmol/L (96-114); Sodium* 135 mmol/L (135-149)
[2023-10-12 16:18] LABS: Potassium* 4.5 mmol/L (3.6-5.1)
[2023-10-12 16:20] LABS: Alanine Aminotransferase* 17 U/L (4-50); Alkaline Phosphatase* 77 U/L (40-150); Anion Gap 3 mEq/L (7-15); Aspartate Amino Transferase* 23 U/L (12-35); Bilirubin Direct* 0.2 mg/dL (0.0-0.5); Bilirubin Total* 1.1 mg/dL (0.1-1.5); Blood Urea Nitrogen* 18 mg/dL (7-30); Carbon Dioxide* 28 mmol/L (20-32); Creatinine* 1.3 mg/dL (0.5-1.5); Est. Creatinine Clearance* 35.44; Estimated Glomerular Filt Rate 53 ml/min; Glucose* 142 mg/dL (60-115); Total Protein* 6.1 g/dL (6.0-8.3)
[2023-10-12 16:21] LABS: Calcium* 8.7 mg/dL (8.4-10.6)
[2023-10-12 16:23] LABS: C Reactive Protein* 2.2 mg/dL (0.5-1.0)
--- NOTE | 2023-10-12 16:33 | ED_ITS ---
HPI - General Adult General Chief complaint: Skin/Abscess/Foreign Body Stated complaint: Rash Time Seen by Provider: 10/12/23 15:18 Source: patient Mode of arrival: ambulatory Limitations: no limitations History of Present Illness HPI narrative: 88-year-old male, history of vascular dementia, paroxysmal atrial fibrillation, history of CVA, hypertension, polyneuropathy, tremor, BPH, macular degeneration, hyperlipidemia, aortic valve stenosis, cardiac pacemaker placement presenting today with a pruritic rash. Patient states the rash has been present for about 3 days. Started off on his legs but now has been spreading. Patient states that it is intensely pruritic. Denies chest pain, shortness of breath, cough, changes in his medications. No new foods or lotions. No new soaps. No recent traveling. Related Data Home Medications ?Medication ?Instructions ?Recorded ?Confirmed acetaminophen 325 mg tablet 650 mg PO Q4H PRN mild pain 03/08/23 10/12/23 apixaban 5 mg tablet (Eliquis) 5 mg PO BID 03/08/23 10/12/23 aspirin 81 mg tablet,delayed 81 mg PO DAILY 03/08/23 10/12/23 release atorvastatin 10 mg tablet 10 mg PO DAILY 03/08/23 10/12/23 donepezil 10 mg tablet 10 mg PO QPM 03/08/23 10/12/23 gabapentin 100 mg capsule 400 mg PO DAILY 03/08/23 10/12/23 levetiracetam 500 mg tablet 500 mg PO BID 03/08/23 10/12/23 lisinopril 20 mg tablet 20 mg PO DAILY 03/08/23 10/12/23 loperamide 2 mg capsule 2 mg PO Q4H PRN diarrhea 03/08/23 10/12/23 melatonin 3 mg tablet 3 mg PO HS PRN 03/08/23 10/12/23 metoprolol succinate 25 mg 25 mg PO BID 03/08/23 10/12/23 tablet,extended release 24 hr peg 400-propylene glycol 0.4 %-0.3 1 drp ophthalmic (eye) QPM 03/08/23 03/08/23 % eye gel drops (Systane Gel) sennosides 8.6 mg tablet (senna) 17.2 mg PO QAM 03/08/23 10/12/23 bisacodyl 10 mg rectal suppository 10 mg LA DAILY PRN 10/12/23 10/12/23 (Dulcolax (bisacodyl)) carbamide peroxide 6.5 % ear drops 4 drp otic (ear) PRN 10/12/23 (Ear Wax Removal Drops) carboxymethylcellulose 1 2 drp ophthalmic (eye) DAILY 10/12/23 10/12/23 %-glycerin 0.9 % eye gel drops (Refresh Optive) cyanocobalamin (vitamin B-12) 1,000 mcg PO DAILY 10/12/23 10/12/23 1,000 mcg tablet furosemide 20 mg tablet 20 mg PO DAILY 10/12/23 10/12/23 Previous Rx's ?Medication ?Instructions ?Recorded methylprednisolone 4 mg tablets in See Rx Instructions PO .COMPLEX 10/12/23 a dose pack (Medrol (Skyler)) #21 ea Allergies Allergy/AdvReac Type Severity Reaction Status Date / Time fexofenadine Allergy Unknown Verified 10/12/23 15:19 Iodinated Contrast Media Allergy Unknown Verified 10/12/23 15:19 pseudoephedrine Allergy Verified 10/12/23 15:19 Review of Systems Status of ROS: Reports: 10 or more systems reviewed and unremarkable except as noted in History and below [facility] Medical History POLST (Physician Orders for Life-Sustaining Treatment) ?Z78.9 - Other specified health status (ICD-10) Social History Smoking Status: Never smoker Do you use any of these nicotine containing products: None Second hand tobacco smoke exposure: No How often do you have a drink containing alcohol: never How often do you have six or more drinks on one occasion: Never AUDIT-C Alcohol total score: 0 Non-prescribed substance use: denies use service: Yes Exam Narrative: Exam Narrative: Well-nourished well-developed elderly patient in no acute distress. Alert and oriented. Answers questions appropriately. Mood and affect are appropriate. Thoughts are goal oriented and rational. No tangential or magical thinking noted. Patient speaks in full sentences without needing to catch his breath. Patient is very chatty, in a good mood. Make many jokes. HEENT: Normocephalic atraumatic. Extraocular muscles are intact. Conjunctivae are moist without any icterus noted. Moist mucous membranes, no rash noted inside the mouth. Posterior pharynx is normal. Neck is soft without lymphadenopathy. Cardiovascular: Heart is regular rate and rhythm. Lungs: Clear to auscultation bilaterally. Abdomen: Soft and nontender nondistended with normal bowel sounds. Extremities: Bilateral lower extremities have 1+ pitting edema to about the mid spear. His feet are quite swollen. Patient does not know if this is new or not. Skin: Well perfused . Patient does have a macular rash involving the extremities and the chest wall. He has areas of confluence over the knees and a spot over the chest wall as well. He also has some petechia of the anterior shins. Const: Vital Signs, click to edit/add: Vital Signs - 24 hr 10/12/23 17:15 Pulse Rate [Pulse Oximeter] 77 Respiratory Rate 20 Blood Pressure [Ri ght Upper Arm] 155/85 H Pulse Oximetry 96 Oxygen Delivery Me thod Room Air Course Course ED Course: We did go ahead and do some blood work. CBC was unremarkable. Patient does have a history of thrombocytopenia, this is stable. Chemistries are unremarkable. LFTs are unremarkable. CRP slightly elevated at 2.2. TSH pending at this time. Did review patient's medical records and per his evaluation today it appears that the leg swelling is new. Therefore we added a BNP to his lab work and given 1 dose of 20 mg IV Lasix. He is on 20 orally daily. BNP was elevated at over 3600. Pruritus did become unbearable while he was here, did give him a dose of oral prednisone. Vital Signs Vital signs: Initial Vital Signs Temperature 98 F 10/12/23 15:19 Temperature Source Temporal Artery Scan 10/12/23 15:19 Pulse Rate 83 10/12/23 15:19 Respiratory Rate 10/12/23 15:19 Blood Pressure 140/81 H 10/12/23 15:19 Blood Pressure Mean 100 10/12/23 15:19 Blood Pressure Position Sitting 10/12/23 15:19 Pulse Oximetry 97 10/12/23 15:19 Oxygen Delivery Method Room Air 10/12/23 15:19 Vital Signs Temperature 98 F 10/12/23 15:19 Pulse Rate 83 10/12/23 15:19 Respiratory Rate 22 10/12/23 15:19 Blood Pressure 140/81 H 10/12/23 15:19 Pulse Oximetry 97 10/12/23 15:19 Oxygen Delivery Method Room Air 10/12/23 15:19 Temperature 98 F 10/12/23 15:19 Pulse Rate 77 10/12/23 17:15 Respiratory Rate 20 10/12/23 17:15 Blood Pressure 155/85 H 10/12/23 17:15 Pulse Oximetry 96 10/12/23 17:15 Oxygen Delivery Method Room Air 10/12/23 17:15 Medications Administered Medications: Discontinued Medications Generic Name Dose Route Start Last Admin Trade Name Freq PRN Reason Stop Dose Admin Furosemide 20 mg 10/12/23 16:45 10/12/23 17:13 Furosemide 10 Mg/Ml Inj IVP 10/12/23 16:46 20 mg ONCE ONE Administration Prednisone 40 mg 10/12/23 16:49 10/12/23 16:58 Prednisone 20 Mg Tablet PO 10/12/23 16:50 40 mg ONCE ONE Administration Medical Decision Making MDM Narrative Medical decision making narrative: 88-year-old male with pruritic rash unclear etiology. Recommend Benadryl twice a day as needed, and will start on a Medrol Dosepak. Follow-up with primary care provider this coming week. Lab Data Lab results reviewed: Yes I reviewed the patient's lab results Labs: Lab Results 10/12/23 10/12/23 Range/Units 15:52 16:45 WBC 5.40 (4.50-11.00) K/uL RBC 4.44 (4.30-5.90) m/uL Hgb 14.1 (13.5-17.5) gm/dL Hct 41.5 (37.0-53.0) % MCV 94 (80-100) fL MCH 32 (26-34) pg MCHC 34 (32-36) gm/dL RDW Coeff of Edward 13.4 (11.5-15.5) % Plt Count 108 L (140-440) K/uL Neut % (Auto) 71.8 (42.0-72.0) % Lymph % (Auto) 7.8 L (20-44) % [place] % (Auto) 7.6 (0.0-11.0) % Eos % (Auto) 12.0 H (0.0-7.0) % Baso % (Auto) 0.6 (0.0-3.0) % Neut # (Auto) 3.88 (1.7-7.0) K/uL Lymph # (Auto) 0.40 L (0.90-2.90) K/uL [place] # (Auto) 0.40 (0.00-0.90) K/UL Eos # (Auto) 0.60 H (0.00-0.50) K/uL Baso # (Auto) 0.03 (0.00-0.30) K/uL Abs Immat Gran (auto) 0.01 (0.00-0.30) K/uL Imm/Tot Granulo (auto) 0.2 % Sodium 135 (135-149) mmol/L Potassium 4.5 (3.6-5.1) mmol/L Chloride 104 (96-114) mmol/L Carbon Dioxide 28 (20-32) mmol/L Anion Gap 3 L (7-15) mEq/L BUN 18 (7-30) mg/dL Creatinine 1.3 (0.5-1.5) mg/dL Estimated Creat Clear 35.44 Estimated GFR 53 ml/min Glucose 142 H (60-115) mg/dL Calcium 8.7 (8.4-10.6) mg/dL Total Bilirubin 1.1 (0.1-1.5) mg/dL Direct Bilirubin 0.2 (0.0-0.5) mg/dL AST 23 (12-35) U/L ALT 17 (4-50) U/L Alkaline Phosphatase 77 (40-150) U/L C-Reactive Protein 2.2 H (0.5-1.0) mg/dL NT-Pro-B Natriuret Pep 3660 pg/mL Total Protein 6.1 (6.0-8.3) g/dL Albumin 3.7 (3.3-5.0) g/dL TSH 2.540 (0.270-4.20) uIU/mL Lab Acknowledgement Test Added Discharge Plan Discharge Clinical Impression: Pruritic rash Patient Disposition: Home w/ Parent or Adult Condition: Unchanged Additional Instructions: Etiology of rash is unclear. Will start the patient on Medrol Dosepak and recommend Benadryl twice daily as needed. Follow-up with primary care provider this coming week to assess fluid status. Okay to use itch relief cream containing diphenhydramine, 3 times per day as needed. Prescriptions: New methylprednisolone [Medrol (Skyler)] 4 mg tablets,dose pack See Rx Instructions .ROUTE .COMPLEX Qty: 21 0RF Rx Instructions: orally per package directions No Action bisacodyl [Dulcolax (bisacodyl)] 10 mg suppository 10 mg LA DAILY PRN furosemide 20 mg tablet 20 mg PO DAILY Patient Comments: [NO ORIGINAL SIG] Ear Wax Removal Drops 6.5 % drops 4 drp otic (ear) PRN Patient Comments: INSTILL 4 DROPS INTO EACH EAR NIGHTLY FOR 5 NIGHTS THEN FLUSH Refresh Optive 1-0.9 % drops,gel 2 drp ophthalmic (eye) DAILY Patient Comments: INSTILL 2 DROPS INTO IN BOTH EYES DAILY FOR DRY EYES cyanocobalamin (vitamin B-12) 1,000 mcg tablet 1,000 mcg PO DAILY Patient Comments: [NO ORIGINAL SIG] acetaminophen 325 mg tablet 650 mg PO Q4H PRN (Reason: mild pain) loperamide 2 mg capsule 2 mg PO Q4H PRN (Reason: diarrhea) atorvastatin 10 mg tablet 10 mg PO DAILY levetiracetam 500 mg tablet 500 mg PO BID donepezil 10 mg tablet 10 mg PO QPM lisinopril 20 mg tablet 20 mg PO DAILY gabapentin 100 mg capsule 400 mg PO DAILY Eliquis 5 mg tablet 5 mg PO BID melatonin 3 mg tablet 3 mg PO HS PRN sennosides [senna] 8.6 mg tablet 17.2 mg PO QAM metoprolol succinate 25 mg tablet extended release 24 hr 25 mg PO BID Systane Gel 0.4-0.3 % drops,gel 1 drp ophthalmic (eye) QPM aspirin 81 mg tablet,delayed release (DR/EC) 81 mg PO DAILY Follow Up/Referrals: To Mata MD [Primary Care Provider] - Stand Alone Forms: [facility] Info Instructions
[2023-10-12] MEDS: predniSONE 20 MG TABLET 40 MG PO (16:58)
[2023-10-12 17:07] LABS: NT Pro B Type NatriureticPept* 3660 pg/mL
[2023-10-12] MEDS: FUROSEMIDE 10 MG/ML inj 20 MG IVP (17:13)
[2023-10-12 17:15] VITALS: BP 155/85; PULSE 77; RESP 20; O2SAT 96
== END 2023-10-12 17:56 | disposition home or self-care (01) ==
PROVIDERS: Emergency Provider Family Medicine; PCP Family Medicine
DX: R21 Rash and other nonspecific skin eruption (principal)
CPT/HCPCS: 36415; 80048; 80076; 83880; 84443; 85025; 86140; 96374; 96375; 96376; 99284; J1940; J7512

== ENCOUNTER 2023-11-04 11:46 | Outpatient (REF) | payer BC, SELFPAY ==
--- OUTSIDE RECORDS SUMMARY | 2023-11-04 11:49 | XMS_ITS | Clinical Summary ---
Author Organization [facility] Address [place], [place] [address] Care Team Providers Care Word Processing Supervisor Name Role Phone To Mata MD Primary Care Provider Allergies Active Allergy Reactions Criticality Noted Date Comments Iodinated Contrast Media Rash 01/18/2014 Fexofenadine Tongue Spasm Low 01/15/2019 Pseudoephedrine Tongue Spasm Low 01/15/2019 Medications Medication Sig Dispensed Refills Start Date End Date Status vit C-E-zinc yr-tjsy-bmo-zeax (ICaps AREDS2) 250 mg-200 unit -12.5 mg-1 [...] Tablet 3 02/08/2022 Active miscellaneous medical supply [facility] EZ Tears gel caps. 2 [...] Encounters Date Type Department Care Team Description 10/24/2023 Orders Only [facility] Scanner 1 scan: (1-Ord) MARIMAR MAURICIO BX, 10/24/2023 [facility] [address] [facility] [address] [place] [address] Kwabena White MD Questions 08/19/2023 Travel from Last 3 Months Immunizations Name Administration Dates Next Due AMB INFLUENZA IIV3 (AGE 65+ YRS) PF (Flu Clinic Only) 12/31/2018,12/16/2017 Amb Influenza, Inact (High-d ose) (Flu Clinic Only) 12/08/2013 COVID-19 vaccine (WearYouWantBio NTech 30mcg/0.3mL) PF, MDV 12/06/2020,05/10/2020,04/19/2020 Influenza RIV4 (Age 18+ Year s) [...] Comments Blood Pressure 124/70 03/14/2023 2:00 PM CERTIFIED PHARMACY TECH Pulse 65 03/14/2023 2:00 PM CERTIFIED PHARMACY TECH Temperature 36.6 ??C (97.9 ??F) 06/13/2022 9:00 AM CD T Respiratory Rate 16 06/12/2022 8:01 PM CDT Oxygen Saturation 94% 03/14/2023 2:00 PM CERTIFIED PHARMACY TECH Inhaled Oxygen Concentration - - Weight 79.3 kg (174 lb 14.4 oz) 03/14/2023 2:00 PM CERTIFIED PHARMACY TECH Height 165.1 cm (5' 5) 03/14/2023 2:00 PM CERTIFIED PHARMACY TECH Body Mass Index 29.1 03/14/2023 2:00 PM CERTIFIED PHARMACY TECH Plan of Treatment Upcoming Encounters Date Type Department Care Team (Late st Contact Info) Description 12/19/2023 Cardiac Device Check [facility] [place] [facility] [place] [phone] 01/02/2024 2:30 PM CDT Office Visit [facility] [address] [place] [address] To Henriquez MD [address] [facility] [address] [place] [address] Health Maintenance Due Date Last Done Comments Tetanus booster 01/20/2022 01/21/2012, 12/15/2008 COVID-19 vaccine series ( season) 2022 12/06/2020, 05/10/2020, 04/19/2020 Depression screening [...] for age 65+ Completed 05/15/2022, 07/21/2014, 03/10/2007 Procedures Procedure Name Priority Date/Time Associated Diagnosis Comments SCAN-OPERATIVE/PROC EDURE REPORT 10/24/2023 12:00 AM CDT from Last 3 Months Results * SCAN-OPERATIVE/PROCEDURE REPORT (10/24/2023 12:00 AM CDT) Scanner OTHER from Last 3 Months Advance Directives Documents on File Type Date Recorded Patient Arc And Gas Welder Expl anation Power of Designer Writer 06/26/1999 06/26/1999 HEALTHCARE POWER OF SPECK DYER * Full Code (Latest Code Status on [...] Code Status Discussion: Reviewed Preferences Care Teams Word Processing Supervisor Relationship Specialty Start Date End Date To Mata MD [address] [facility] [address] [place] [address] PCP - General Family Practice 08/02/22
--- OUTSIDE RECORDS SUMMARY | 2023-11-04 11:49 | XMS_ITS | Clinical Summary ---
Author Organization [facility] Address [address] [place] [address] Care Team Providers Care Adobe Cq Developer Name Role Phone Yehuda Matias Primary Care Provider [phone] Social History Tobacco Use Types Packs/Day Years [...] age to complete this topic Care Teams Adobe Cq Developer Relationship Specialty Start Date End Date Yehuda Matias [address] [place] [address] PCP - General Family Medicine 09/12/21
--- OUTSIDE RECORDS SUMMARY | 2023-11-04 11:49 | XMS_ITS | Referral Summary ---
Author Organization [place] Address [address] [place] [address] Care Team Providers Care Integrated Logistics Support Manager Name Role Phone Yehuda Matias Primary Care Provider [phone] Social History Tobacco Use Types Packs/Day Years Used Date Smoking Tobacco: Never Assessed Adolescent Education Answer Date Record ed Getting School Help Needed Not on file 12/15 Sex and Gender Information Value Date Recorded Sex Assigned at Not on file Gender Identity Not on file Sexual Orientation Not on file Plan of Treatment Not on file Care Teams Integrated Logistics Support Manager Relationship Specialty Start Date End Date Yehuda Matias [address] [place] [address] PCP - General Family Medicine 09/12/21
[2023-11-04 12:15] LABS: Basophils Absolute Auto 0.03 K/uL (0.00-0.30); Basophils Percent Auto 0.6 % (0.0-3.0); Eosinophils Percent Auto 10.5 % (0.0-7.0); Hematocrit 37.3 % (37.0-53.0); Hemoglobin* 12.4 gm/dL (13.5-17.5); Immature Granulocytes Abs Auto 0.01 K/uL (0.00-0.30); Immature Granulocytes Pct Auto 0.2 %; Lymphocytes Percent Auto 15.5 % (20-44); Mean Corpuscular HGB Conc 33 gm/dL (32-36); Mean Corpuscular Hemoglobin 32 pg (26-34); Mean Corpuscular Volume 95 fL (80-100); Monocytes Percent Auto 10.5 % (0.0-11.0); Neutrophils Absolute Auto 3.11 K/uL (1.7-7.0); Neutrophils Percent Auto 62.7 % (42.0-72.0); Platelet Count* 141 K/uL (140-440); RDW Coefficient of Variation % 13.7 % (11.5-15.5); Red Blood Count 3.94 m/uL (4.30-5.90); White Blood Count* 4.96 K/uL (4.50-11.00)
[2023-11-04 12:17] LABS: Slide Review Reflex No
== END 2023-11-04 11:47 | disposition home or self-care (01) ==
LOC: NPINS 11:46
PROVIDERS: PCP Family Medicine; Visit Provider Family Medicine
DX: G40.909 Epilepsy, unspecified, not intractable, without status epilepticus (principal)
CPT/HCPCS: 85025

== ENCOUNTER 2024-04-30 19:55 | Outpatient (CLI) | payer BC, SELFPAY | END 2024-04-30 19:56 | disposition home or self-care (01) | PROVIDERS: PCP Family Medicine; Visit Provider Student in an Organized Health Care Education/Training Program | DX: R53.1 Weakness (principal); U07.1 COVID-19 | CPT/HCPCS: A0425; A0429 ==

== ENCOUNTER 2024-04-30 20:02 | Inpatient (IN) | payer BC, SELFPAY ==
--- OUTSIDE RECORDS SUMMARY | 2024-04-30 20:04 | XMS_ITS | Clinical Summary ---
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 04/28 Ryan Oliveira MD Neutropenia Abnormal labs - low sbc/lymph 501454848 (SNOMED CT) 03/29 Active 03/29 Ryan Oliveira MD Laboratory test result abnormal Memory loss 11964765 (SNOMED CT) 07/22 Resolved 07/22 Ryan Oliveira MD Amnesia Hand weakness, left 190573594 (SNOMED CT) 03/29 Active 03/29 Ryan Oliveira MD Weakness of hand Hand pain, left with new paresthesia 29087876 (SNOMED CT) 03/29 Active 03/29 Ryan Oliveira MD Hand pain Dementia 99575799 (SNOMED CT) 10/23 Active 10/23 Ryan Oliveira MD Dementia Memory loss 19858072 (SNOMED CT) 07/22 Removed 07/22 Shantell Yanez PA-C Amnesia Resting tremor 35065669 (SNOMED CT) 04/08 Active 04/09 Ryan Oliveira MD Resting tremor HEADACHE 799161728 (SNOMED CT) 10/30 Resolved 10/30 Ryan Oliveira MD Elevated level of transaminase and lactic acid dehydrogenase Sleep apnea 94867851 (SNOMED CT) 07/24 Resolved 07/24 Ryan Oliveira MD Sleep apnea Balance problem 093375183 (SNOMED CT) 04/08 Active 04/08 Ryan Oliveira MD Impairment of balance Epilepsy 75677600 (SNOMED CT) 12/01 Active 12/01 Shantell Yanez PA-C Epilepsy Frequent falls 916120475 (SNOMED CT) 11/22 Active 11/22 Esequiel Patel MD Recurrent falls Confusion 60539878 (SNOMED CT) 11/10 Active 11/10 Esequiel Patel MD Clouded consciousness HEADACHE 306502452 (SNOMED CT) 10/30 Removed 10/30 Chanel Brandon Elevated level of transaminase and lactic acid dehydrogenase Sleep apnea 04081048 (SNOMED CT) 07/24 Removed 07/24 Esequiel Patel MD Sleep apnea ESSENTIAL TREMOR 168293163 (SNOMED CT) 06/18 Active 06/18 Bhupendra Kwan MD Essential tremor DIPLOPIA 17659221 (SNOMED CT) 06/18 Active 06/18 Bhupendra Kwan MD Diplopia HEADACHE 06996329 (SNOMED CT) 10/30 Inactive 10/30 Bhupendra Kwan MD Headache Medications Medication Instructions Start Date Stop Date Generic Name ND Provider ASPIRIN 325 MG TABS 81 mg aspirin [id number] Ryan Oliveira MD DULCOLAX 10 MG SUPP bisacodyl 0271787794 5 Ryan Oliveira MD FUROSEMIDE 20 MG TABS furosemide 74444163567 Ryan Oliveira MD ALUM & MAG HYDROXIDE-SIMETH 8520-2233-005 MG/30ML SUSP alum-mag hydroxide-simeth 91903499419 Ryan Oliveira MD MILK OF MAGNESIA 2400 MG/30ML SUSP magnesium hydroxide 40942451044 Ryan Oliveira MD GABAPENTIN 400 MG CAPS 400 mg or 4 caps nightly 03/29 gabapentin 29656695356 Ryan Oliveira MD GABAPENTIN 400 MG CAPS 400 mg or 4 caps nightly and 2 cap in am; may increase am doze by 100 mg every 4 days until Lt hand pain under controlled or until 400 mg 2x per day 03/30 gabapentin 50576285610 Ryan Oliveira MD GABAPENTIN 400 MG CAPS 1 cap once daily 01/27 gabapentin 00911908852 Ryan Oliveira MD DONEPEZIL HCL 10 MG TABS 5 mg/night by mouth for 4 weeks, then 10 mg/night. May decrease to 5 mg/night if have bad nausea or significant side effects until next visit's discussion. 10/23 donepezil 15840155904 Ryan Oliveira MD GABAPENTIN 100 MG CAPS 4 cap po once daily 01/27 gabapentin 01252094647 Ryan Oliveira MD GABAPENTIN 400 MG CAPS 400 mg or 4 caps nightly 03/29 gabapentin 73554320758 Ryan Oliveira MD GABAPENTIN 400 MG CAPS 1 cap once nightly 03/29 gabapentin 30497079645 Ryan Oliveira MD DONEPEZIL HCL 10 MG TABS 10 mg/night. May decrease to 5 mg/night if have bad nausea or significant side effects until next visit's discussion. 03/29 donepezil 52579139398 Ryan Oliveira MD LEVETIRACETAM 500 MG TABS TAKE ONE TABLET BY MOUTH TWICE DAILY 07/16 levetiracetam 92283556618 Ryan Oliveira MD DONEPEZIL HCL 10 MG TABS 5 mg/night by mouth for 4 weeks, then 10 mg/night. May decrease to 5 mg/night if have bad nausea or significant side effects until next visit's discussion. 10/23 donepezil 32082012860 Ryan Oliveira MD SYSTANE ICAPS AREDS2 TABS 1 cap BID 10/23 vit c-vit c-xk-ab-lutein-ze ax 60483871662 Ryan Oliveira MD PRESERVISION AREDS CAPS vitamins a,c,y-kywo-ujkpfb 85544654048 Ryan Oliveira MD [id number] 1 MG CHEW meco balamin (vitamin b12) 12638650917 Ryan Oliveira MD RA FISH OIL 1000 MG CAPS 07/22 docosahexaenoic acid-epa 57420925785 Shantell Yanez PA-C VITAMIN P42-BKKJH ACID 500-400 MCG TABS 07/22 vitamin b57-tolwx acid 58861161796 Shantell Yanez PA-C ELIQUIS 5 MG TABS 1 tab BID apixaban 22463406297 Shantell Yanez PA-C SYSTANE ICAPS AREDS2 TABS 1 cap BID 10/23 vit c-vit z-jd-oj-lutein-ze ax 50569727413 Shantell Yanez PA-C VITAMIN B-12 1000 MCG TABS 1 tab daily cyanocobalamin (vitamin b-12) 75372210653 Shantell Yanez PA-C GABAPENTIN 100 MG CAPS 4 cap po once daily 01/27 gabapentin 59702987022 Shantell Domínguezil PA-C GABAPENTIN 400 MG CAPS 1 cap once daily 01/27 gabapentin 26141459295 Shantell Domínguezil PA-C Imodium A-D 2 mg tablet 1 tab once daily for loose stools loperamide 55435545073 Shantell Domínguezil PA-C Imodium A-D 2 mg tablet 1 tab every 4 hours as needed for loose stools loperamide 78232923732 Shantell Domínguezil PA-C MELATONIN 3 MG TABS 1 tab as needed for sleep melatonin 65769840022 Shantell Domínguezil PA-C METOPROLOL SUCCINATE ER 25 MG [id number] 1 tab BID metoprolol succinate 40689176762 Shantell Domínguezil PA-C REFRESH OPTIVE 1-0.9 % GEL instill 2 drops in both eyes once daily for dry eyes carboxymethylcell ulose-glycern 05665383995 Shantell Domínguezil PA-C REFRESH OPTIVE 0.5-0.9 % SOLN instill 2 drops in both eyes twice a day for dry eyes carboxymethylcell ulose-glycern 81233665217 Shantell Yanez PA-C SENNA 8.6 MG TABS give 2 tabs as needed for constipation sennosides 29657246328 Shantell Yanez PA-C GABAPENTIN 400 MG CAPS Take 1 capsule by mouth every night 04/08 gabapentin 02016186304 Ryan Oliveira MD GABAPENTIN 400 MG CAPS Take 1 capsule by mouth every night 04/08 gabapentin 52547063144 Alyssia Lucas LPN ZYRTEC ALLERGY 10 MG TABS 04/03 cetirizine 94921271940 Alyssia Lucas LPN VITAMIN H52-QKESX ACID 500-400 MCG TABS 07/22 vitamin p73-ubxfc acid 61728938679 Alyssia Lucas LPN LEVETIRACETAM 500 MG TABS Take 1 tablet by mouth twice a day 07/16 levetiracetam 99021326000 Shantell Yanez PA-C LEVETIRACETAM 500 MG TABS TAKE ONE TABLET BY MOUTH TWICE DAILY 07/16 levetiracetam 80781171294 Esequiel Patel MD GABAPENTIN 100 MG CAPS TAKE ONE CAPSULE BY MOUTH ONE TIME DAILY AT BEDTIME. may increase to 2 capsules at bedtime after 2 weeks if needed 04/03 gabapentin 45957196273 Esequiel Patel MD LEVETIRACETAM 250 MG TABS Take 1 tab by mouth every evening for 1 week. Then increase to 1 tab by mouth twice a day 12/01 levetiracetam 31110970428 Shantell Yanez PA-C LEVETIRACETAM 500 MG TABS Take 1 tablet by mouth twice a day 07/16 levetiracetam 22252676844 Shantell WHIPPLE-Len LEVETIRACETAM 250 MG TABS Take 1 tab by mouth every evening for 1 week. Then increase to 1 tab by mouth twice a day 12/01 levetiracetam 85593557405 Shantell Yanez SOLE-C ZYRTEC ALLERGY 10 MG TABS 04/03 cetirizine 66106250225 Shantell Yanez PA-C RA FISH OIL 1000 MG CAPS 07/22 docosahexaenoic acid-epa 20199448867 Shantellaleksandra Yanez PA-C SYSTANE ICAPS AREDS2 TABS 07/22 vit c-vit r-bc-xp-lutein-ze ax 28646978874 Shantell Yanez SOLE-C LISINOPRIL 20 MG TABS Take 1 tablet by mouth once a day 03/21 lisinopril 47127357774 Esequiel Patel MD PRIMIDONE 50 MG TABS 1 tablet by mouth twice a day 08/01 primidone 07240641472 Zelda Greene RN WARFARIN SODIUM 3 MG TABS Take 3 tablets (9mg) every Tue, Fri and 2.5 tablets (7.5mg) all other days or as directed. 04/18 warfarin 21634793688 Esequiel Patel MD LORAZEPAM 0.5 MG TABS Take 1 tablet by mouth 06/05 lorazepam 28914284497 Esequiel Patel MD ATORVASTATIN CALCIUM 10 MG TABS Take 1 tablet by mouth every night 03/21 atorvastatin 87955909579 Esequiel Patel MD HYDROCHLOROTHIAZIDE 12.5 MG CAPS Take 1 capsule by mouth once a day 03/21 hydrochlorothiazi de 75622417598 Esequiel Patel MD ELIQUIS 5 MG TABS 07/22 apixaban 42266515390 Esequiel Patel MD WARFARIN SODIUM 3 MG TABS Take 3 tablets (9mg) every Tue, Fri and 2.5 tablets (7.5mg) all other days or as directed. 04/18 WARFARIN SODIUM 12352601722 Esequiel Patel MD HYDROCHLOROTHIAZIDE 12.5 MG CAPS TAKE ONE CAPSULE BY MOUTH ONE TIME DAILY 03/21 HYDROCHLOROTHIAZI DE 55714923517 Esequiel Patel MD ATORVASTATIN CALCIUM 10 MG TABS TAKE ONE TABLET BY MOUTH ONE TIME DAILY AT BEDTIME 03/21 ATORVASTATIN CALCIUM 93782356994 Esequiel Patel MD LISINOPRIL 20 MG TABS TAKE ONE TABLET BY MOUTH ONE TIME DAILY 03/21 LISINOPRIL 95670916857 Esequiel Patel MD LORAZEPAM 0.5 MG TABS Take 1 tablet by mouth 1 hour prior to imaging. 06/05 LORAZEPAM 35668044188 Esequiel Patel MD PRIMIDONE 50 MG TABS 1 po bid 08/01 PRIMIDONE 09967790175 Bhupendra Kwan MD PRIMIDONE 50 MG TABS Week #1 take 1 in AM and 2 in PM and then in Week #2 and thereafter take 2 po bid 09/05 PRIMIDONE 65945009775 Bhupendra Kwan MD PRIMIDONE 50 MG TABS Week #1 take 1/2 po qhs, then Week #2 take 1/2 po bid, then Week #3 take 1/2 in AM and 1 in PM, then Week #4 and on take 1 po bid 06/18 PRIMIDONE 29073425875 Bhupendra Kwan MD Medications Administered No information available. Allergies, Adverse Reactions, Alerts Allergy Name Reaction Description Start Date Severity Status Provider NONE Critical No Longer Active Esequiel Patel MD NONE Critical No Longer Active Bhupendra Kwan MD Observed no known allergies at Results Date Name Value Unit Range Flag Description Rx Refill: eRx Request for P RIMIDONE 50MG TAB AMNE [facility]_RR [id number]`PRIM IDONE 50MG TAB AMNE`50MG`U2`12 0 Tablet``TAKE 1 TABLET IN THE MORNING AND 2 TABLETS IN THE EVENING FOR WEEK 1,THEN TAKE 2 TABLETS TWICE DAILY AFTER``5`3`2011 0712`[id number]`Rohan Fowler #[id number]*`[phone]`[id number] 0`` B e-scripts messenger refill request Lab Report: 09/11/19 - 07/04/20 ABSOLUTE MON 0.7 10*3/uL Monocyte s [#/volume] in Blood EGFR NOT AFA >60 mL/min/1 .73m2 Glomerular filtration rate/1.73 sq M.predicted among non-blacks [Volume Rate/Area] in Serum, Plasma or Blood by Creatinine-based formula (MDRD) ABS EOS 0.1 {Cells}/ uL Eosinophils [#/volume] in Blood CA 9.5 mg/dL Calcium [Mass/volume] in Serum or Plasma ABSOLUTE BAS normal 10*3/uL Basophil s [#/volume] in Blood ABS LYMPHOCY 1.0 10*3/uL Absolute Lymphocytes ABS NEUTROPH 4.1 10*3/uL Neutroph ils [#/volume] in Blood GFR >60 mL/min Glomerular filtration rate/1.73 sq M.predicted among non-blacks [Volume Rate/Area] in Serum, Plasma or Blood by Creatinine-based formula (MDRD) NON-HDL CHOL 88 mg/dL choleste rol, non-HDL, total % BASO AUTO 0.7 % basophils as percent of blood leukocytes, automated count % EOS AUTO 1.5 % Eosinophil s/100 leukocytes in Blood by Automated count CHOL/HDL 3.59 cholesterol/ HDL ratio, serum CO2 TOTAL 28 mmol/L carbon diox mackenzie, serum, total GLUCOSE SER 95 mg/dL Glucose [Mass/volume] in Serum or Plasma TRIGLYC TOT 126 mg/dL Triglycer mackenzie [Mass/volume] in Serum or Plasma - mg/dL MPV 9.7 fL Platelet mean volume [Entitic volume] in Blood by Valentina BUN/CREAT 15 Urea nitrogen/Creatini ne [Mass Ratio] in Serum or Plasma MONOCYTE % 12.2 % Monocytes/ 100 leukocytes in Blood by Automated count MCH 31.5 pg MCH [Entitic mass] by Automated count RDW 12.8 % Erythrocyte distribution width [Ratio] by Automated count MCHC 35.2 % MCHC [Mass/volume] by Automated count PMN % 69.3 % Neutrophils/1 00 leukocytes in Blood by Automated count MCV 90 fL MCV [Entitic volume] by Automated count INR 2.3 INR in Platel et poor plasma by Coagulation assay ANION GAP 8 Anion gap 4 in Serum or Plasma SODIUM 134 mmol/L Sodium [Moles/volume] in Serum or Plasma WBC 5.8 10*3/mm3 Leukocytes [#/volume] in Blood by Automated count RBC 5.20 10*6/mm3 Erythrocytes [#/volume] in Blood by Automated count PLATELETS 198 10*3/mm3 Platelets [#/volume] in Blood by Automated count HGB 16.4 g/dL Hemoglobin [Mass/volume] in Blood HCT 46.6 % Hematocrit [Volume Fraction] of Blood by Automated count PT PATIENT 26.0 s Prothrombi n time (PT) POTASSIUM 4.8 mmol/L Potassium [Moles/volume] in Serum or Plasma LDL 63 mg/dL Cholesterol i n LDL [Mass/volume] in Serum or Plasma - mg/dL HDL 34 mg/dL Cholesterol i n HDL [Mass/volume] in Serum or Plasma - mg/dL CREATININE 1.11 mg/dL Creatinine [Mass/volume] in Serum or Plasma CHOLESTEROL 122 mg/dL Cholester ol [Mass/volume] in Serum or Plasma - mg/dL CHLORIDE 98 mmol/L Chloride [Moles/volume] in Serum or Plasma BUN 17 mg/dL Urea nitrogen [Mass/volume] in Serum or Plasma Office Visit: PRESSURE IN HE AD 07/24/20 09:18- 07/24/20 09:18 REFERRING PH... SMOK STATUS former smoker Tob acco smoking status Internal Other: Verbal Autho rization/Emergency Contact - OBS VERBAL_EMER DONE Verbal authorization and emergency contact Internal Other: Authorizatio n - OBS [email or web address] Yes Authoriza tion: Release of Information - Authorize [facility] - Payment and Healthcare Operations ROIAUTHOTHER Yes Authoriz ation: Release of Information - Authorize Others/Insurance - Payment and Healthcare Operations HIECONSENT Yes Consent To Release information to the Health Information Exchange (HIE) [email or web address] Yes Authorizat ion: Authorization for [facility] to leave messages, voicemail, send text messages, send emails AUTHRELHCARE Yes Authoriz ation: Release/Retrieval of Information to/from Healthcare Facilities, Pharmacy Benefit Payers and Providers AUTHPRIVPRAC Yes Authoriz ation: Notice of privacy practices AUTHBENEFIT Yes Authoriza tion: Assignment of Benefits and Payment Agreement Replaced Document: (P) T4, F REE, TSH, VITAMIN B12, METHYLMALONIC ACID, LEVETIRA ... [id number] * GE use only - for [employer] import when terms are not otherwise specified METHYL MALON * nmol/L methylma lonic acid (MMA), serum B-12 747 pg/mL 200-1100 N Cobalamin (Vitamin B12) [Mass/volume] in Serum or Plasma TSH 4.01 u[iU]/mL 0.40-4.50 N Thyrotropi n [Units/volume] in Serum or Plasma FRT4 1.0 0.8-1.8 N FREE T4 Office Visit: Office Visit f ax MEDS REVIEW Done Documenta tion of current medications (procedure) DEMENTIA2 Assessment of cognition performed and results reviewed. Total score [MMSE] [id number] Mild Total scor e [MoCA] MMSE SCORE 20 Total scor e [MMSE] Plan of Care Type Date Detail Appointment 11:20 [place], [address], [address], [place], [address], Pending order Follow up Pending order Follow up Pending order CBC with Diff/Pl atelet Pending Order exclud ed from report: Pending order Patient Instruct ions Pending order Follow up ARIEL Pending order Follow up ARIEL Pending Order exclud ed from report: Pending order CBC with Diff/Pl atelet Pending order Patient Instruct ions Pending order Methylmalonic Ac id Serum (MMA) Pending order T4 Free Direct Pending order TSH Pending order Vitamin B12 Pending order Follow up with N eurologist or ARIEL Pending order Follow up with N eurologist or ARIEL Pending order CBC with Diff/Pl atelet Pending Order exclud ed from report: Pending order CBC with Diff/Pl atelet Pending order EMG left upper e xt Pending order Other Test Pending order Instructions for Staff Pending order Follow up Pending order Instructions for Staff Pending order Instructions for Staff Pending order Instructions for Staff Pending Order exclud ed from report: Pending order Follow up Pending order Follow up ARIEL in clinic or telemedicine Pending order Levetiracetam (K eppra) Pending order Follow up in cli reggie or telemedicine Pending order MRI-Brain W/O Pending order Physical Therapy Pending order Follow up Pending order Levetiracetam (K eppra) Pending order Follow up Pending order Follow up ARIEL Pending order Follow up after testing Pending order EEG Ambulatory Pending order We will contact you with test results Pending order Physical Therapy Pending order EEG Video Pending order We will contact you with test results Pending order Sleep Study - AP NA Procedures Code Procedure Name Date Entry Date ORDERS Follow up ARIEL [facility] [address]-6 MMSE ORDERS CBC with Diff/Platelet 10/30 ORDERS CBC with Diff/Platelet 04/28 ORDERS Vitamin B12 ORDERS T4 Free Direct ORDERS TSH ORDERS Methylmalonic Acid Serum (MMA) [facility]-[id number] Documentation of current medicatio ns ORDERS Follow up with Neurologist or ARIEL ORDERS Follow up with Neurologist or ARIEL ORDERS Other Test ORDERS EMG left upper ext 0 CPT-03650 Nerve Conduction 5-6 studies CPT-22087 EMG with NCS (5+ muscles) - 1 limb 03/30 ORDERS Instructions for Staff 01/27 [id number] Documentation of current medicatio ns ORDERS Follow up ORDERS Instructions for Staff 10/23 [id number] Documentation of current medicatio ns ORDERS Instructions for Staff 10/23 [facility] [address]-3 MMSE ORDERS Follow up ORDERS Follow up ARIEL in clinic or telemedicine ORDERS Levetiracetam (Keppra) 07/22 [facility]-[id number] Documentation of current medicatio ns ORDERS Follow up in clinic or telemedicine 04/08 [id number] MRI-Brain W/O ORDERS Physical Therapy ORDERS Follow up ORDERS Levetiracetam (Keppra) 04/03 ORDERS Follow up [id number] Documentation of current medicatio ns ORDERS Follow up ARIEL ORDERS Follow up after testing 2020 ORDERS EEG Ambulatory CPT-62463 EEG Setup CPT-71906 Amb EEG 12hrs 1min-26hrs () CPT-62557 Amb EEG 12hrs 1min-26hrs (Candis) 6 ORDERS Physical Therapy ORDERS EEG Video ORDERS We will contact you with test results 03/18/06 CPT-82259 EEG Setup CPT-36261 Video EEG 2-12hrs () 11/14 CPT-82917 Video EEG 2-12hrs (Candis) 202 03/18/06 [facility]-[id number] Documentation of current medicatio ns ORDERS Sleep Study - APNA 7 ORDERS We will contact you with test results 202 03/15/29 [facility]-[id number] Documentation of current medicatio ns Vital Signs Date Name Value Unit Description Height 62.99 [in_us] height E&M Heart Rate 77 /min pulse rate BMI (Body Mass Index) 33.26 kg/m2 Bod y Mass Index (Ratio) Weight Measured 85 kg weight in kilograms E&M Weight Measured 187 [lb_av] weight E& M Body Temperature 36.78 [degF] temperat ure E&M BP Diastolic 80 mm[Hg] blood pressu re, diastolic BP Systolic 128 mm[Hg] blood pressur e, systolic Respiratory Rate 14 /min respirat ory rate E&M Immunizations No information available. Advance Directives No information available.
[2024-04-30 20:08] VITALS: BP 129/71; PULSE 75; RESP 18; TEMP 38.4; O2SAT 91; BMI 28.9
--- OUTSIDE RECORDS SUMMARY | 2024-04-30 20:23 | XMS_ITS | Clinical Summary ---
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 Active 04/28 Ryan Oliveira MD Neutropenia Abnormal labs - low sbc/lymph 601457971 (SNOMED CT) 03/29 Active 03/29 Ryan Oliveira MD Laboratory test result abnormal Memory loss 96754974 (SNOMED CT) 07/22 Resolved 07/22 Ryan Oliveira MD Amnesia Hand weakness, left 761930045 (SNOMED CT) 03/29 Active 03/29 Ryan Oliveira MD Weakness of hand Hand pain, left with new paresthesia 89236430 (SNOMED CT) 03/29 Active 03/29 Ryan Oliveira MD Hand pain Dementia 11945621 (SNOMED CT) 10/23 Active 10/23 Ryan Oliveira MD Dementia Memory loss 86704508 (SNOMED CT) 07/22 Removed 07/22 Shantell Yanez PA-C Amnesia Resting tremor 08828665 (SNOMED CT) 04/08 Active 04/09 Ryan Oliveira MD Resting tremor HEADACHE 091091217 (SNOMED CT) 10/30 Resolved 10/30 Ryan Oliveira MD Elevated level of transaminase and lactic acid dehydrogenase Sleep apnea 61124757 (SNOMED CT) 07/24 Resolved 07/24 Ryan Oliveira MD Sleep apnea Balance problem 251449718 (SNOMED CT) 04/08 Active 04/08 Ryan Oliveira MD Impairment of balance Epilepsy 80717531 (SNOMED CT) 12/01 Active 12/01 Shantell Yanez PA-C Epilepsy Frequent falls 170460863 (SNOMED CT) 11/22 Active 11/22 Esequiel Patel MD Recurrent falls Confusion 86061486 (SNOMED CT) 11/10 Active 11/10 Esequiel Patel MD Clouded consciousness HEADACHE 600178427 (SNOMED CT) 10/30 Removed 10/30 Chanel Brandon Elevated level of transaminase and lactic acid dehydrogenase Sleep apnea 61846544 (SNOMED CT) 07/24 Removed 07/24 Esequiel Patel MD Sleep apnea ESSENTIAL TREMOR 670258230 (SNOMED CT) 06/18 Active 06/18 Bhupendra Kwan MD Essential tremor DIPLOPIA 02745203 (SNOMED CT) 06/18 Active 06/18 Bhupendra Kwan MD Diplopia HEADACHE 23068176 (SNOMED CT) 10/30 Inactive 10/30 Bhupendra Kwan MD Headache Medications Medication Instructions Start Date Stop Date Generic Name ND Provider ASPIRIN 325 MG TABS 81 mg aspirin [id number] Ryan Oliveira MD DULCOLAX 10 MG SUPP bisacodyl 9660649031 5 Ryan Oliveira MD FUROSEMIDE 20 MG TABS furosemide 08619447162 Ryan Oliveira MD ALUM & MAG HYDROXIDE-SIMETH 4578-2952-320 MG/30ML SUSP alum-mag hydroxide-simeth 74830601087 Ryan Oliveira MD MILK OF MAGNESIA 2400 MG/30ML SUSP magnesium hydroxide 92529106489 Ryan Oliveira MD GABAPENTIN 400 MG CAPS 400 mg or 4 caps nightly 03/29 gabapentin 87452999272 Ryan Oliveira MD GABAPENTIN 400 MG CAPS 400 mg or 4 caps nightly and 2 cap in am; may increase am doze by 100 mg every 4 days until Lt hand pain under controlled or until 400 mg 2x per day 03/30 gabapentin 19434960607 Ryan Oliveira MD GABAPENTIN 400 MG CAPS 1 cap once daily 01/27 gabapentin 58816276563 Ryan Oliveira MD DONEPEZIL HCL 10 MG TABS 5 mg/night by mouth for 4 weeks, then 10 mg/night. May decrease to 5 mg/night if have bad nausea or significant side effects until next visit's discussion. 10/23 donepezil 40855092861 Ryan Oliveira MD GABAPENTIN 100 MG CAPS 4 cap po once daily 01/27 gabapentin 16172422821 Ryan Oliveira MD GABAPENTIN 400 MG CAPS 400 mg or 4 caps nightly 03/29 gabapentin 45364542666 Ryan Oliveira MD GABAPENTIN 400 MG CAPS 1 cap once nightly 03/29 gabapentin 36045865576 Ryan Oliveira MD DONEPEZIL HCL 10 MG TABS 10 mg/night. May decrease to 5 mg/night if have bad nausea or significant side effects until next visit's discussion. 03/29 donepezil 50740191431 Ryan Oliveira MD LEVETIRACETAM 500 MG TABS TAKE ONE TABLET BY MOUTH TWICE DAILY 07/16 levetiracetam 36603735263 Ryan Oliveira MD DONEPEZIL HCL 10 MG TABS 5 mg/night by mouth for 4 weeks, then 10 mg/night. May decrease to 5 mg/night if have bad nausea or significant side effects until next visit's discussion. 10/23 donepezil 99093188176 Ryan Oliveira MD SYSTANE ICAPS AREDS2 TABS 1 cap BID 10/23 vit c-vit r-yr-uz-lutein-ze ax 50548967789 Ryan Oliveira MD PRESERVISION AREDS CAPS vitamins a,c,u-wbhr-pudiwz 75135784255 Ryan Oliveira MD [id number] 1 MG CHEW meco balamin (vitamin b12) 62692279580 Ryan Oliveira MD RA FISH OIL 1000 MG CAPS 07/22 docosahexaenoic acid-epa 51735531920 Shantell Yanez PA-C VITAMIN H09-BPMCW ACID 500-400 MCG TABS 07/22 vitamin b73-lhwbx acid 45343793677 Shantell Yanez PA-C ELIQUIS 5 MG TABS 1 tab BID apixaban 43613979205 Shantell Yanez PA-C SYSTANE ICAPS AREDS2 TABS 1 cap BID 10/23 vit c-vit g-md-ac-lutein-ze ax 80928813050 Shantell Yanez PA-C VITAMIN B-12 1000 MCG TABS 1 tab daily cyanocobalamin (vitamin b-12) 32354772659 Shantell Yanez PA-C GABAPENTIN 100 MG CAPS 4 cap po once daily 01/27 gabapentin 74423703892 Shantell Domínguezil PA-C GABAPENTIN 400 MG CAPS 1 cap once daily 01/27 gabapentin 61240387156 Shantell Domínguezil PA-C Imodium A-D 2 mg tablet 1 tab once daily for loose stools loperamide 00981992777 Shantell Domínguezil PA-C Imodium A-D 2 mg tablet 1 tab every 4 hours as needed for loose stools loperamide 55517495386 Shantell Domínguezil PA-C MELATONIN 3 MG TABS 1 tab as needed for sleep melatonin 30359012808 Shantell Domínguezil PA-C METOPROLOL SUCCINATE ER 25 MG [id number]-IRP 1 tab BID metoprolol succinate 68516281646 Shantell Domínguezil PA-C REFRESH OPTIVE 1-0.9 % GEL instill 2 drops in both eyes once daily for dry eyes carboxymethylcell ulose-glycern 38646040826 Shantell Domínguezil PA-C REFRESH OPTIVE 0.5-0.9 % SOLN instill 2 drops in both eyes twice a day for dry eyes carboxymethylcell ulose-glycern 42136401581 Shantell Yanez PA-C SENNA 8.6 MG TABS give 2 tabs as needed for constipation sennosides 00418499615 Shantell Yanez PA-C GABAPENTIN 400 MG CAPS Take 1 capsule by mouth every night 04/08 gabapentin 43942813522 Ryan Oliveira MD GABAPENTIN 400 MG CAPS Take 1 capsule by mouth every night 04/08 gabapentin 33448467128 Alyssia Lucas LPN ZYRTEC ALLERGY 10 MG TABS 04/03 cetirizine 32831041791 Alyssia Lucas LPN VITAMIN [id number]-PTOCW ACID 500-400 MCG TABS 07/22 vitamin d72-ifazy acid 70588698461 Alyssia Lucas LPN LEVETIRACETAM 500 MG TABS Take 1 tablet by mouth twice a day 07/16 levetiracetam 81157891856 Shantell Yanez PA-C LEVETIRACETAM 500 MG TABS TAKE ONE TABLET BY MOUTH TWICE DAILY 07/16 levetiracetam 95059788760 Esequiel Patel MD GABAPENTIN 100 MG CAPS TAKE ONE CAPSULE BY MOUTH ONE TIME DAILY AT BEDTIME. may increase to 2 capsules at bedtime after 2 weeks if needed 04/03 gabapentin 65324746423 Esequiel Patel MD LEVETIRACETAM 250 MG TABS Take 1 tab by mouth every evening for 1 week. Then increase to 1 tab by mouth twice a day 12/01 levetiracetam 02665865028 Shantell Yanez PA-C LEVETIRACETAM 500 MG TABS Take 1 tablet by mouth twice a day 07/16 levetiracetam 02499038425 Shantell WHIPPLE-Len LEVETIRACETAM 250 MG TABS Take 1 tab by mouth every evening for 1 week. Then increase to 1 tab by mouth twice a day 12/01 levetiracetam 42996147608 Shantell Yanez SOLE-C ZYRTEC ALLERGY 10 MG TABS 04/03 cetirizine 35204116746 Shantell Yanez PA-C RA FISH OIL 1000 MG CAPS 07/22 docosahexaenoic acid-epa 29594070837 Shantellaleksandra Yanez PA-C SYSTANE ICAPS AREDS2 TABS 07/22 vit c-vit r-sw-pr-lutein-ze ax 03657823815 Shantell Yanez SOLE-C LISINOPRIL 20 MG TABS Take 1 tablet by mouth once a day 03/21 lisinopril 99458442673 Esequiel Patel MD PRIMIDONE 50 MG TABS 1 tablet by mouth twice a day 08/01 primidone 27487320097 Zelda Greene RN WARFARIN SODIUM 3 MG TABS Take 3 tablets (9mg) every Tue, Fri and 2.5 tablets (7.5mg) all other days or as directed. 04/18 warfarin 56475275128 Esequiel Patel MD LORAZEPAM 0.5 MG TABS Take 1 tablet by mouth 06/05 lorazepam 74648978527 Esequiel Patel MD ATORVASTATIN CALCIUM 10 MG TABS Take 1 tablet by mouth every night 03/21 atorvastatin 47465192812 Esequiel Patel MD HYDROCHLOROTHIAZIDE 12.5 MG CAPS Take 1 capsule by mouth once a day 03/21 hydrochlorothiazi de 45613637948 Esequiel Patel MD ELIQUIS 5 MG TABS 07/22 apixaban 69389763545 Esequiel Patel MD WARFARIN SODIUM 3 MG TABS Take 3 tablets (9mg) every Tue, Fri and 2.5 tablets (7.5mg) all other days or as directed. 04/18 WARFARIN SODIUM 45914685970 Esequiel Patel MD HYDROCHLOROTHIAZIDE 12.5 MG CAPS TAKE ONE CAPSULE BY MOUTH ONE TIME DAILY 03/21 HYDROCHLOROTHIAZI DE 58730997691 Esequiel Patel MD ATORVASTATIN CALCIUM 10 MG TABS TAKE ONE TABLET BY MOUTH ONE TIME DAILY AT BEDTIME 03/21 ATORVASTATIN CALCIUM 94524554020 Esequiel Patel MD LISINOPRIL 20 MG TABS TAKE ONE TABLET BY MOUTH ONE TIME DAILY 03/21 LISINOPRIL 62983376699 Esequiel Patel MD LORAZEPAM 0.5 MG TABS Take 1 tablet by mouth 1 hour prior to imaging. 06/05 LORAZEPAM 27735893060 Esequiel Patel MD PRIMIDONE 50 MG TABS 1 po bid 08/01 PRIMIDONE 78464573826 Bhupendra Kwan MD PRIMIDONE 50 MG TABS Week #1 take 1 in AM and 2 in PM and then in Week #2 and thereafter take 2 po bid 09/05 PRIMIDONE 86606698977 Bhupendra Kwan MD PRIMIDONE 50 MG TABS Week #1 take 1/2 po qhs, then Week #2 take 1/2 po bid, then Week #3 take 1/2 in AM and 1 in PM, then Week #4 and on take 1 po bid 06/18 PRIMIDONE 62047189669 Bhupendra Kwan MD Medications Administered No information available. Allergies, Adverse Reactions, Alerts Allergy Name Reaction Description Start Date Severity Status Provider NONE Critical No Longer Active Esequiel Patel MD NONE Critical No Longer Active Bhupendra Kwan MD Observed no known allergies at Results Date Name Value Unit Range Flag Description Rx Refill: eRx Request for P RIMIDONE 50MG TAB [facility]_RR [id number]`PRIM IDONE 50MG TAB AMNE`50MG`U2`12 0 Tablet``TAKE 1 TABLET IN THE MORNING AND 2 TABLETS IN THE EVENING FOR WEEK 1,THEN TAKE 2 TABLETS TWICE DAILY AFTER``5`3`2011 0712`[id number]`Rohan Fowler #[id number]*``[id number] 0`` B e-scripts messenger refill request Lab [...] performed and results reviewed. Total score [MMSE] [id number] Mild Total scor e [MoCA] MMSE SCORE 20 Total scor e [MMSE] Plan of Care Type Date Detail Appointment 11:20 [place], [id number], [address], [place], [address], Pending order Follow up Pending order Follow [...] Date Entry Date ORDERS Follow up [facility] 56010-1 MMSE ORDERS CBC with Diff/Platelet 10/30 ORDERS CBC with Diff/Platelet 04/28 ORDERS Vitamin B12 ORDERS T4 Free Direct ORDERS TSH ORDERS Methylmalonic Acid Serum (MMA) [facility]-[id number] Documentation of current medicatio ns ORDERS Follow up with Neurologist or [facility] ORDERS Follow up with Neurologist or [facility] ORDERS Other Test ORDERS EMG left upper ext 0 CPT-81030 Nerve Conduction 5-6 studies CPT-37080 EMG with NCS (5+ muscles) - 1 limb 03/30 ORDERS Instructions for Staff 01/27 [id number] Documentation of current medicatio ns ORDERS Follow up ORDERS Instructions for Staff 10/23 [id number] Documentation of current medicatio ns ORDERS Instructions for Staff 10/23 [facility] 97423-7 MMSE ORDERS Follow up ORDERS Follow up [facility] in clinic or telemedicine ORDERS Levetiracetam (Keppra) 07/22 [facility]-[id number] Documentation of current medicatio ns ORDERS Follow up in clinic or telemedicine 04/08 [id number] MRI-Brain W/O ORDERS Physical Therapy ORDERS Follow up ORDERS Levetiracetam (Keppra) 04/03 ORDERS Follow up [id number] Documentation of current medicatio ns ORDERS Follow up [facility] ORDERS Follow up after testing 2020 ORDERS EEG Ambulatory CPT-81299 EEG Setup CPT-53052 Amb EEG 12hrs 1min-26hrs () CPT-23826 Amb EEG 12hrs 1min-26hrs ([facility]) 6 ORDERS Physical Therapy ORDERS EEG Video ORDERS We will contact you with test results 03/18/06 CPT-88651 EEG Setup CPT-09360 Video EEG 2-12hrs () 11/14 CPT-33186 Video EEG 2-12hrs ([facility]) 202 03/18/06 [facility]-[id number] Documentation of current medicatio ns ORDERS Sleep Study - APNA 7 ORDERS We will contact you with test results 202 03/15/29 [facility]-[id number] Documentation of current medicatio ns Vital Signs [...]
[2024-04-30 20:26] LABS: Basophils Absolute Auto 0.03 K/uL (0.00-0.30); Basophils Percent Auto 0.5 % (0.0-3.0); Eosinophils Absolute Auto 0.26 K/uL (0.00-0.50); Eosinophils Percent Auto 3.9 % (0.0-7.0); Hematocrit 36.6 % (37.0-53.0); Hemoglobin* 12.2 gm/dL (13.5-17.5); Immature Granulocytes Abs Auto 0.02 K/uL (0.00-0.30); Immature Granulocytes Pct Auto 0.3 %; Lymphocytes Percent Auto 6.8 % (20-44); Mean Corpuscular HGB Conc 33 gm/dL (32-36); Mean Corpuscular Hemoglobin 32 pg (26-34); Mean Corpuscular Volume 96 fL (80-100); Monocytes Percent Auto 11.3 % (0.0-11.0); Neutrophils Percent Auto 77.2 % (42.0-72.0); Platelet Count* 123 K/uL (140-440); Red Blood Count 3.82 m/uL (4.30-5.90); White Blood Count* 6.66 K/uL (4.50-11.00)
[2024-04-30 20:31] LABS: Slide Review Reflex No
--- NOTE | 2024-04-30 20:37 | CRLHL7_ITS ---
For Patients: As a result of the Cures Act, medical imaging exams and procedure reports are released immediately into your electronic medical record. You may view this report before your referring provider. If you have questions, please contact your health care provider. Indication: COVID. Technique: Chest 1 view. Comparison: Chest x-ray 03/08/2023. Findings/Impression: Left-sided pacemaker generator with leads projecting over the right atrium and right ventricle. Unchanged right clavicular hardware. Probable mild cardiomegaly. No confluent airspace opacity. No pleural effusion or pneumothorax. No acute osseous abnormality. Dictated by Mayo Ponce MD @ 04/30/2024 9:22:21 PM (Electronically Signed)
--- NOTE | 2024-04-30 20:39 | ED_ITS ---
HPI - Weakness General Date Seen: 04/30/24 Chief complaint: Weakness Stated complaint: covid+ Time Seen by Provider: 04/30/24 20:05 Source: EMS and RN notes reviewed Mode of arrival: EMS Limitations: no limitations History of Present Illness HPI Narrative: Patient is an 88-year-old male presenting to emergency department from [facility] for COVID and weakness. COVID has been going around his [facility] in today he was weak. He has tip waiting assist to 1 and does well but today he was very weak and they needed a lift to get him out of bed. The weakness persisted so he was tested for COVID and it was positive. She is vital signs have been stable for them at his [facility]. He has not been complaining about any other issues. They have not noticed any difficulty breathing and the pacing. Last the patient states he feels fine and does not feel like he has any symptoms but he does not know where he was or what is going on. He is overall pleasant. Related Data Home Medications ?Medication ?Instructions ?Recorded ?Confirmed acetaminophen 325 mg tablet 650 mg PO Q4H PRN mild pain 03/08/23 10/12/23 apixaban 5 mg tablet (Eliquis) 5 mg PO BID 03/08/23 10/12/23 aspirin 81 mg tablet,delayed 81 mg PO DAILY 03/08/23 10/12/23 release atorvastatin 10 mg tablet 10 mg PO DAILY 03/08/23 10/12/23 donepezil 10 mg tablet 10 mg PO QPM 03/08/23 10/12/23 gabapentin 100 mg capsule 400 mg PO DAILY 03/08/23 10/12/23 levetiracetam 500 mg tablet 500 mg PO BID 03/08/23 10/12/23 lisinopril 20 mg tablet 20 mg PO DAILY 03/08/23 10/12/23 loperamide 2 mg capsule 2 mg PO Q4H PRN diarrhea 03/08/23 10/12/23 melatonin 3 mg tablet 3 mg PO HS PRN 03/08/23 10/12/23 metoprolol succinate 25 mg 25 mg PO BID 03/08/23 10/12/23 tablet,extended release 24 hr peg 400-propylene glycol 0.4 %-0.3 1 drp ophthalmic (eye) QPM 03/08/23 03/08/23 % eye gel drops (Systane Gel) sennosides 8.6 mg tablet (senna) 17.2 mg PO QAM 03/08/23 10/12/23 bisacodyl 10 mg rectal suppository 10 mg VA DAILY PRN 10/12/23 10/12/23 (Dulcolax (bisacodyl)) carbamide peroxide 6.5 % ear drops 4 drp otic (ear) PRN 10/12/23 (Ear Wax Removal Drops) carboxymethylcellulose 1 2 drp ophthalmic (eye) DAILY 10/12/23 10/12/23 %-glycerin 0.9 % eye gel drops (Refresh Optive) cyanocobalamin (vitamin B-12) 1,000 mcg PO DAILY 10/12/23 10/12/23 1,000 mcg tablet furosemide 20 mg tablet 20 mg PO DAILY 10/12/23 10/12/23 Previous Rx's ?Medication ?Instructions ?Recorded methylprednisolone 4 mg tablets in See Rx Instructions PO .COMPLEX 10/12/23 a dose pack (Medrol (Skyler)) #21 ea Allergies Allergy/AdvReac Type Severity Reaction Status Date / Time fexofenadine Allergy Unknown Verified 10/12/23 15:19 Iodinated Contrast Media Allergy Unknown Verified 10/12/23 15:19 pseudoephedrine Allergy Verified 10/12/23 15:19 Review of Systems Status of ROS: Reports: unobtainable due to mental status [facility] Medical History POLST (Physician Orders for Life-Sustaining Treatment) ?Z78.9 - Other specified health status (ICD-10) Social History Smoking Status: Never smoker Do you use any of these nicotine containing products: None Second hand tobacco smoke exposure: No How often do you have a drink containing alcohol: never How often do you have six or more drinks on one occasion: Never AUDIT-C Alcohol total score: 0 Non-prescribed substance use: denies use service: Yes Exam Narrative: Exam Narrative: Const: Well-nourished, Well-developed, in mild distress Eyes: PERRL, no conjunctival injection, and symmetrical lids HENT: Atraumatic external nose and ears. Moist mucous membranes. Neck: Symmetric, trachea midline, No thyromegaly. CVS: RRR, No murmurs or gallops. Peripheral pulses 2+ and equal in all extremities RESP: Unlabored respiratory effort. Clear to auscultation bilaterally. GI: Nontender/Nondistended, No rebound or guarding. MSK:Extremities w/o deformity, Normal Active ROM Skin: Warm, Dry. No rashes or lesions. Neuro: Normal Muscle tone, No focal neurological deficits. Psych: Awake, Alert,. Appropriate mood and affect. Const: Vital Signs, click to edit/add: Vital Signs - 24 hr 04/30/24 20:08 Temperature 101.2 F H Pulse Rate [Left P ulse Oximeter] 75 Respiratory Rate 18 Blood Pressure [Le ft Upper Arm] 129/71 Pulse Oximetry 91 Oxygen Delivery Me thod Room Air Course Vital Signs Vital signs: Initial Vital Signs Temperature 101.2 F H 04/30/24 20:08 Temperature Source Temporal Artery Scan 04/30/24 20:08 Pulse Rate 75 04/30/24 20:08 Pulse Rhythm Regular 04/30/24 20:08 Respiratory Rate 18 04/30/24 20:08 Blood Pressure 129/71 04/30/24 20:08 Blood Pressure Mean 90 04/30/24 20:08 Blood Pressure Position Semi-Fowlers 04/30/24 20:08 Pulse Oximetry 91 04/30/24 20:08 Oxygen Delivery Method Room Air 04/30/24 20:08 Vital Signs Temperature 101.2 F H 04/30/24 20:08 Pulse Rate 75 04/30/24 20:08 Respiratory Rate 18 04/30/24 20:08 Blood Pressure 129/71 04/30/24 20:08 Pulse Oximetry 91 04/30/24 20:08 Oxygen Delivery Method Room Air 04/30/24 20:08 Temperature 101.2 F H 04/30/24 20:08 Pulse Rate 75 04/30/24 20:08 Respiratory Rate 18 04/30/24 20:08 Blood Pressure 129/71 04/30/24 20:08 Pulse Oximetry 91 04/30/24 20:08 Oxygen Delivery Method Room Air 04/30/24 20:08 MDM - Weakness MDM Narrative Medical decision making narrative: Patient is an 88-year-old male presenting to emergency department for weakness and COVID. Will do a chest x-ray to look for signs pneumonia. Also order EKG and troponin to a signs of ACS or other consciousness weakness. Urinalysis, CBC, magnesium, BMP all ordered. With the known COVID in having a fever currently will order blood cultures and lactate for sepsis workup. Tylenol g iven for fever. Patient's COVID test did come back positive. Rest of lab work shows no concerning abnormalities. EKG and troponin showed no concerning findings. Lactate is still pending but the hospitalist is agreeable to accept him for admission. I reviewed chest x-ray and I do not see any concerning abnormalities. Patient will be admitted. Lab Data Labs: Lab Results 04/30/24 Range/Units 20:14 WBC 6.66 (4.50-11.00) K/uL RBC 3.82 L (4.30-5.90) m/uL Hgb 12.2 L (13.5-17.5) gm/dL Hct 36.6 L (37.0-53.0) % MCV 96 (80-100) fL MCH 32 (26-34) pg MCHC 33 (32-36) gm/dL RDW Coeff of Edward 13.0 (11.5-15.5) % Plt Count 123 L (140-440) K/uL Neut % (Auto) 77.2 H (42.0-72.0) % Lymph % (Auto) 6.8 L (20-44) % Whitfield % (Auto) 11.3 H (0.0-11.0) % Eos % (Auto) 3.9 (0.0-7.0) % Baso % (Auto) 0.5 (0.0-3.0) % Neut # (Auto) 5.10 (1.7-7.0) K/uL Lymph # (Auto) 0.50 L (0.90-2.90) K/uL Whitfield # (Auto) 0.80 (0.00-0.90) K/UL Eos # (Auto) 0.26 (0.00-0.50) K/uL Baso # (Auto) 0.03 (0.00-0.30) K/uL Abs Immat Gran (auto) 0.02 (0.00-0.30) K/uL Imm/Tot Granulo (auto) 0.3 % Sodium 137 (135-149) mmol/L Potassium 4.2 (3.6-5.1) mmol/L Chloride 99 (96-114) mmol/L Carbon Dioxide 30 (20-32) mmol/L Anion Gap 8 (7-15) mEq/L BUN 35 H (7-30) mg/dL Creatinine 1.5 (0.5-1.5) mg/dL Estimated Creat Clear 34.04 Estimated GFR 45 ml/min Glucose 136 H (60-115) mg/dL Calcium 8.6 (8.4-10.6) mg/dL Magnesium 2.3 (1.5-2.6) mg/dL Troponin I < 0.01 L (0.01-0.04) ng/mL SARS-CoV-2 (PCR) POSITIVE SARS-CoV-2 A (Negative) Influenza Type A (PCR) Negative PCR FLU A (Negative) Influenza Type B (PCR) Negative PCR FLU B (Negative) RSV (PCR) Negative PCR RSV (Negative) Imaging Data Chest x-ray: Radiologist's impression: Left-sided pacemaker generator with leads projecting over the right atrium and right ventricle. Unchanged right clavicular hardware. Probable mild cardiomegaly. No confluent airspace opacity. No pleural effusion or pneumothorax. No acute osseous abnormality. Dictated by Mayo Ponce MD @ 04/30/2024 9:22:21 PM ECG Data Attestation: I personally reviewed and interpreted this ECG as follows: Prior ECG tracings: available for review Interpretation: He atrial paced rhythm with a rate of 75 beats per minute, left bundle-branch block, normal axis, no ST or T-wave abnormalities. Appears similar to previous EKG on file Discharge Plan Discharge Clinical Impression: COVID Patient Disposition: Admitted As Observation Condition: Stable
[2024-04-30 20:50] LABS: Chloride* 99 mmol/L (96-114); Potassium* 4.2 mmol/L (3.6-5.1); Sodium* 137 mmol/L (135-149)
[2024-04-30 20:53] LABS: Anion Gap 8 mEq/L (7-15); Carbon Dioxide* 30 mmol/L (20-32); Creatinine* 1.5 mg/dL (0.5-1.5); Est. Creatinine Clearance* 34.04; Estimated Glomerular Filt Rate 45 ml/min
[2024-04-30 20:54] LABS: Blood Urea Nitrogen* 35 mg/dL (7-30); Calcium* 8.6 mg/dL (8.4-10.6); Glucose* 136 mg/dL (60-115); Magnesium* 2.3 mg/dL (1.5-2.6)
[2024-04-30 20:58] LABS: PCR FLU A Negative PCR FLU A (Negative); PCR FLU B Negative PCR FLU B (Negative); PCR RSV Negative PCR RSV (Negative); SARS PCR* POSITIVE SARS-CoV-2 (Negative)
[2024-04-30 21:11] LABS: Troponin I* < 0.01 ng/mL (0.01-0.04)
[2024-04-30 21:31] LABS: Lactate Sepsis w/Reflex* 0.8 mmol/L (0.5-1.9)
--- NOTE | 2024-04-30 21:36 | P.IMHP_ITS ---
Hospitalist- H&P: HPI History of Present Illness Date Seen: 04/30/24 Chief complaint: covid+ Narrative: Adama Thomas is a 88 year old male who presented to the ER from [facility] ([facility]) for weakness in the setting of COVID infection. This morning was weaker than baseline and required a lift to get out of bed. Known outbreak of COVID in his facility, so tested given weakness and it was positive. No dyspnea, no chest pain. ER Course and Findings: - no acute abnormalities on CXR - + COVID, T of 101.2, normalized with APAP - negative troponin, normal lactate - normal WBC, Hgb 12.2 (baseline), platelets 123 (h/o platelets as low as 108 on chart review) - Creatinine 1.5 (was 1.68 10 days ago in [facility], typically 1-1.3 per chart review) Histories updated below, PCP is Dr. Mata at his facility. Review of Systems Narrative: - patient has MCI, no concerns for me on [facility] Medical History (Updated 04/30/24 @ 23:57 by Denise Moseley MD) Macular degeneration ?H35.30 - Unspecified macular degeneration (ICD-10) Hyperlipidemia ?E78.5 - Hyperlipidemia, unspecified (ICD-10) Essential hypertension ?I10 - Essential (primary) hypertension (ICD-10) Chronic constipation ?K59.09 - Other constipation (ICD-10) BPH (benign prostatic hyperplasia) ?N40.0 - Benign prostatic hyperplasia without lower urinary tract symptoms (ICD-10) Cognitive impairment ?R41.89 - Other symptoms and signs involving cognitive functions and awareness (ICD-10) Seizure disorder ?G40.909 - Epilepsy, unspecified, not intractable, without status epilepticus (ICD-10) Persistent atrial fibrillation ?I48.19 - Other persistent atrial fibrillation (ICD-10) Pacemaker ?Z95.0 - Presence of cardiac pacemaker (ICD-10) LBBB (left bundle branch block) ?I44.7 - Left bundle-branch block, unspecified (ICD-10) Aortic stenosis ?I35.0 - Nonrheumatic aortic (valve) stenosis (ICD-10) POLST (Physician Orders for Life-Sustaining Treatment) ?Z78.9 - Other specified health status (ICD-10) Surgical History (Updated 04/30/24 @ 21:52 by Denise Moseley MD) History of cholecystectomy ?Z90.49 - Acquired absence of other specified parts of digestive tract (ICD- 10) Hx of appendectomy ?Z90.49 - Acquired absence of other specified parts of digestive tract (ICD- 10) S/P cataract extraction ?Z98.49 - Cataract extraction status, unspecified eye (ICD-10) S/P placement of cardiac pacemaker ?Z95.0 - Presence of cardiac pacemaker (ICD-10) 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, . Five adult children, daughter Edna is primary contact and POA. No current smoking, no concerning alcohol use. Full code. What is your current living situation?: I presently have a place to live Problems where you live: no known problems Problems where you live details: n/a In the past 12 months, utilities in danger of being shut off: no In past 12 months, lack of transportation kept you from medical appts, meetings, work, or getting things needed for daily living: no In the past 12 mos, have been you worried that your food would run out before you had money to buy more?: never true In the past 12 mos, the food you bought just didn't last and you didn't have money to buy more?: never true Smoking Status: Former smoker Do you use any of these nicotine containing products: None Second hand tobacco smoke exposure: No How often do you have a drink containing alcohol: never How often do you have six or more drinks on one occasion: Never AUDIT-C Alcohol total score: 0 Non-prescribed substance use: denies use How often does anyone, including family, friends and others, physically hurt you : never How often does anyone, including family, friends and others, insult or talk down to you: never How often does anyone, including family, friends and others, threaten you with harm: never How often does anyone, including family, friends and others, scream or curse at you: never service: Yes Meds Home Medications and Allergies Home Medications ?Medication ?Instructions ?Recorded ?Confirmed ?Type acetaminophen 325 mg tablet 650 mg PO Q4H PRN mild pain 03/08/23 04/30/24 History apixaban 5 mg tablet (Eliquis) 5 mg PO BID 03/08/23 04/30/24 History aspirin 81 mg tablet,delayed 81 mg PO DAILY 03/08/23 04/30/24 History release atorvastatin 10 mg tablet 10 mg PO DAILY 03/08/23 04/30/24 History donepezil 10 mg tablet 10 mg PO QPM 03/08/23 04/30/24 History gabapentin 100 mg capsule 400 mg PO BID 03/08/23 04/30/24 History levetiracetam 500 mg tablet 500 mg PO BID 03/08/23 04/30/24 History lisinopril 20 mg tablet 20 mg PO DAILY 03/08/23 04/30/24 History loperamide 2 mg capsule 2 mg PO Q4H PRN diarrhea 03/08/23 04/30/24 History melatonin 3 mg tablet 3 mg PO HS PRN 03/08/23 04/30/24 History metoprolol succinate 25 mg 25 mg PO BID 03/08/23 04/30/24 History tablet,extended release 24 hr peg 400-propylene glycol 0.4 %-0.3 1 drp ophthalmic (eye) QPM 03/08/23 04/30/24 History % eye gel drops (Systane Gel) sennosides 8.6 mg tablet (senna) 17.2 mg PO QAM 03/08/23 04/30/24 History bisacodyl 10 mg rectal suppository 10 mg AL DAILY PRN 10/12/23 04/30/24 History (Dulcolax (bisacodyl)) carbamide peroxide 6.5 % ear drops 4 drp otic (ear) Q12H PRN 10/12/23 04/30/24 History (Ear Wax Removal Drops) carboxymethylcellulose 1 2 drp ophthalmic (eye) DAILY 10/12/23 04/30/24 History %-glycerin 0.9 % eye gel drops (Refresh Optive) cyanocobalamin (vitamin B-12) 1,000 mcg PO DAILY 10/12/23 04/30/24 History 1,000 mcg tablet furosemide 20 mg tablet 20 mg PO DAILY 10/12/23 04/30/24 History amiodarone 400 mg tablet 400 mg PO DAILY 04/30/24 04/30/24 History loratadine 10 mg disintegrating 10 mg PO DAILY 04/30/24 04/30/24 History tablet (Claritin RediTabs) losartan 25 mg tablet 25 mg PO DAILY 04/30/24 04/30/24 History torsemide 20 mg tablet 40 mg PO DAILY 04/30/24 04/30/24 History Home Medication Comments: Meds updated from [facility] paperwork Allergies Allergy/AdvReac Type Severity Reaction Status Date / Time fexofenadine Allergy Unknown Verified 10/12/23 15:19 Iodinated Contrast Media Allergy Unknown Verified 10/12/23 15:19 pseudoephedrine Allergy Verified 10/12/23 15:19 Exam Narrative: Exam Narrative: GEN: Resting in bed, nontoxic, breathing comfortably CV: Irregular, + systolic murmur R: LCTA bilaterally without concerning wheezing Ext: 2-3+ edema bilateral lower extremities Skin: No concerning skin lesions or rashes on exposed skin Neuro: No focal deficits on limited exam Psych: MCI apparent regarding short-term memory, no agitation Const: Vital Signs, click to edit/add: Vital Signs - 24 hr 04/30/24 20:08 Temperature 101.2 F H Pulse Rate [Left P ulse Oximeter] 75 Respiratory Rate 18 Blood Pressure [Le ft Upper Arm] 129/71 Pulse Oximetry 91 Oxygen Delivery Me thod Room Air Hospitalist - H&P: Result Labs Labs: Short CBC 04/30/24 Range/Units 20:14 WBC 6.66 (4.50-11.00) K/uL Hgb 12.2 L (13.5-17.5) gm/dL Hct 36.6 L (37.0-53.0) % Plt Count 123 L (140-440) K/uL BMP 04/30/24 20:14 Sodium 137 Potassium 4.2 Chloride 99 Carbon Dioxide 30 BUN 35 H Creatinine 1.5 Glucose 136 H Calcium 8.6 Cardiac Enzymes 04/30/24 Range/Units 20:14 Troponin I < 0.01 L (0.01-0.04) ng/mL Assessment and Plan Assessment and plan (1) COVID: Problem comment: - 04/30/24 - weakness primary symptom, + fever, no hypoxia - no inpatient COVID specific therapies recommended at this time - reviewed with Edna; interested in Paxlovid if appropriate and 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
[2024-04-30] MEDS: ACETAMINOPHEN 325 MG TABLET 650 MG PO (21:37)
[2024-04-30 21:56] VITALS: BP 116/64; PULSE 71; RESP 16; RESP 17; TEMP 37.3; O2SAT 90; O2SAT 96; BMI 29.8
[2024-05-01] VITALS (12 sets, daily range): BP systolic 117–155; BP diastolic 65–87; PULSE 69–77; RESP 18–20; TEMP 36.6–38.6; O2SAT 92–96
[2024-05-01] MEDS: ACETAMINOPHEN 325 MG TABLET 650 MG PO (05:59)
[2024-05-01 06:20] LABS: Appearance Urine Cloudy (Clear); Bilirubin Urine Negative (Negative); Blood Urine Trace-intact (Negative); Color Urine Yellow (Yellow); Glucose Urine Negative (Negative); Ketones Urine Negative (Negative); Leukocyte Esterase Urine Negative (Negative); Nitrite Urine Negative (Negative); Protein Urine Trace (Negative); Specific Gravity Urine 1.015 (1.000-1.030); pH Urine 5.5 (5.0-8.5)
[2024-05-01 06:40] LABS: Basophils Absolute Auto 0.03 K/uL (0.00-0.30); Basophils Percent Auto 0.6 % (0.0-3.0); Eosinophils Absolute Auto 0.16 K/uL (0.00-0.50); Eosinophils Percent Auto 2.9 % (0.0-7.0); Hematocrit 35.7 % (37.0-53.0); Hemoglobin* 11.8 gm/dL (13.5-17.5); Immature Granulocytes Abs Auto 0.04 K/uL (0.00-0.30); Immature Granulocytes Pct Auto 0.7 %; Lymphocytes Percent Auto 9.9 % (20-44); Mean Corpuscular HGB Conc 33 gm/dL (32-36); Mean Corpuscular Hemoglobin 32 pg (26-34); Mean Corpuscular Volume 97 fL (80-100); Monocytes Percent Auto 13.8 % (0.0-11.0); Neutrophils Percent Auto 72.1 % (42.0-72.0); Platelet Count* 117 K/uL (140-440); RDW Coefficient of Variation % 13.1 % (11.5-15.5); Red Blood Count 3.69 m/uL (4.30-5.90); White Blood Count* 5.43 K/uL (4.50-11.00)
[2024-05-01 06:59] LABS: Slide Review Reflex No
[2024-05-01 07:08] LABS: Squamous Epithelial Cell Urine Few (None-Few); WBC Urine 0-2 (0-5)
[2024-05-01 07:14] LABS: Chloride* 101 mmol/L (96-114); Sodium* 138 mmol/L (135-149)
[2024-05-01 07:15] LABS: Potassium* 4.1 mmol/L (3.6-5.1)
[2024-05-01 07:17] LABS: Anion Gap 5 mEq/L (7-15); Carbon Dioxide* 32 mmol/L (20-32); Creatinine* 1.6 mg/dL (0.5-1.5); Est. Creatinine Clearance* 29.84; Estimated Glomerular Filt Rate 41 ml/min
[2024-05-01 07:18] LABS: Blood Urea Nitrogen* 32 mg/dL (7-30); Calcium* 8.6 mg/dL (8.4-10.6); Glucose* 109 mg/dL (60-115)
--- NOTE | 2024-05-01 07:33 | PC.NURSE ---
Addendum entered by Shanti Wills RN 05/01/24 07:39: O2 placed on patient for room air saturations of 83-92% while sleeping. O2 90-96% on 1LPM. Original Note: Shift note ([id number]: Patient admitted from ED at 2144. Pleasant, alert and oriented to person, place, month and situation. Could not recall what year it was. Patient has some confusion at baseline. Given PRN Tylenol for fever of 101.5. Slide transferred from ED bed to room bed. Per ED report patient transfers with walker, gait belt and assist of two at this time. Reported pain in his right foot that was relieved by elevating with pillows. Has otherwise denied pain.?
[2024-05-01] MEDS: APIXABAN 5 MG TABLET PO ×2 (09:44→20:38)
[2024-05-01] MEDS: LOSARTAN POTASSIUM 50 MG TABLET 25 MG PO (09:44)
[2024-05-01] MEDS: ASPIRIN 81 MG TABLET EC PO (09:44)
[2024-05-01] MEDS: LORATADINE 10 MG TABLET PO (09:45)
[2024-05-01] MEDS: SENNOSIDES 1 TAB TABLET 2 TAB PO (09:45)
[2024-05-01] MEDS: TORSEMIDE 20 MG TABLET 40 MG PO (09:45)
[2024-05-01] MEDS: levETIRAcetam 500 MG TABLET PO ×2 (09:45→20:38)
[2024-05-01] MEDS: ATORVASTATIN CALCIUM 10 MG TABLET PO (09:45)
[2024-05-01] MEDS: AMIODARONE 200 MG TABLET 400 MG PO (09:45)
[2024-05-01] MEDS: METOPROLOL SUCCINATE (XL) 25 MG TAB PO ×2 (09:46→20:37)
[2024-05-01] MEDS: GABAPENTIN 100 MG CAPSULE 400 MG PO ×2 (09:46→20:37)
[2024-05-01] MEDS: SODIUM CHLORIDE 0.9 % (FLUSH) 10 ML SYRINGE 5 ML IVF (09:47)
--- NOTE | 2024-05-01 13:14 | P.IMPN_ITS ---
Progress Note: A&P Assessment and plan (1) COVID: Problem details: - 04/30/24 - weakness primary symptom, + fever, mild hypoxia - no inpatient COVID specific therapies recommended at this time - discussed risk of Paxlovid and with new hypoxia and his home meds of amiodarone; apixaban, atorvastatin - risk is too high for Paxlovid and risk is too high to take him off the offending meds Status: Acute (2) Persistent atrial fibrillation: Problem details: - on Amiodarone, Metoprolol, anticoagulated on Eliquis - cardioversion x2 in 2023, pacemaker 2023 - follows with [facility] Status: Acute (3) Seizure disorder: Problem details: - on Keppra Status: Acute (4) Cognitive impairment: Problem details: - on Donepezil Status: Acute (5) Hypoxia: Problem details: 0.5-1 liter to keep sats above 90 mild respiratory distress to hypoxemia; / acute covid Status: Acute (6) XIOMY (acute kidney injury): Problem details: with fever; no IV fluids; pt is volume contracted. mild XIOMY. will give small bolus and encourage PO fluids and trend labs and weight Status: Acute Subjective Date Seen: 05/01/24 Interval history: Daily Progress Note - Hospital Medicine Day #: 2 CC: Covid weakness Symptom onset: 04/30 Positive test: 04/30 Hospital Day: 2 24 HOUR UPDATE: stable night. still spiking fevers and in need of 1L/NC oxygen to keep sats above 90% Notable Labs, Micro, Rads, Interventions: CBC is essentially stable. Creatinine is 1.6, baseline appears to be 1.1-1.3 Blood culture is negative to date Chest x-ray reviewed from admission. EKG reviewed from admission. Objective: sleepy but awakens easily - jokes with me. When I say, We are going to take good care of you - he states You better then grins. Vitals: see above Lungs: scattered rhonchi Cardiac: S1S2. Disposition/Potential discharge - likely back to [facility] care - [facility] once strength is near baseline. Exam Const: Vital Signs, click to edit/add: Vital Signs - 24 hr 04/30/24 20:08 04/30/24 21:56 04/30/24 21:56 Temperature 101.2 F H 99.2 F Pulse Rate Pulse Rate [Left P ulse Oximeter] 75 Pulse Rate [Pulse Oximeter] 71 Respiratory Rate 18 16 17 Blood Pressure [Le ft Arm] Blood Pressure [Le ft Upper Arm] 129/71 Blood Pressure [Ri ght Arm] 116/64 Pulse Oximetry 91 90 96 Oxygen Delivery Me thod Room Air Room Air Room Air Oxygen Flow Rate 05/01/24 02:30 05/01/24 03:00 05/01/24 05:56 Temperature 98.5 F 101.5 F H Pulse Rate 70 Pulse Rate [Left P ulse Oximeter] Pulse Rate [Pulse Oximeter] 77 Respiratory Rate 18 Blood Pressure [Le ft Arm] 125/65 Blood Pressure [Le ft Upper Arm] Blood Pressure [Ri ght Arm] Pulse Oximetry 96 Oxygen Delivery Me thod Nasal Cannula Oxygen Flow Rate 1 05/01/24 05:59 05/01/24 07:00 05/01/24 07:28 Temperature 101.5 F H Pulse Rate 69 Pulse Rate [Left P ulse Oximeter] Pulse Rate [Pulse Oximeter] Respiratory Rate Blood Pressure [Le ft Arm] Blood Pressure [Le ft Upper Arm] Blood Pressure [Ri ght Arm] Pulse Oximetry 94 Oxygen Delivery Me thod Oxygen Flow Rate 05/01/24 08:15 05/01/24 09:50 05/01/24 09:50 Temperature Pulse Rate Pulse Rate [Left P ulse Oximeter] Pulse Rate [Pulse Oximeter] Respiratory Rate 18 18 18 Blood Pressure [Le ft Arm] Blood Pressure [Le ft Upper Arm] Blood Pressure [Ri ght Arm] Pulse Oximetry 96 92 Oxygen Delivery Me thod Nasal Cannula Nasal Cannula Oxygen Flow Rate 1 1 05/01/24 09:50 Temperature 98.9 F Pulse Rate Pulse Rate [Left P ulse Oximeter] Pulse Rate [Pulse Oximeter] 70 Respiratory Rate 18 Blood Pressure [Le ft Arm] 117/87 Blood Pressure [Le ft Upper Arm] Blood Pressure [Ri ght Arm] Pulse Oximetry 92 Oxygen Delivery Me thod Nasal Cannula Oxygen Flow Rate 1 Labs Labs: Laboratory Results - last 24 hr 04/30/24 04/30/24 05/01/24 20:14 21:28 05:56 WBC 6.66 RBC 3.82 L Hgb 12.2 L Hct 36.6 L MCV 96 MCH 32 MCHC 33 RDW Coeff of Edward 13.0 Plt Count 123 L Neut % (Auto) 77.2 H Lymph % (Auto) 6.8 L [place] % (Auto) 11.3 H Eos % (Auto) 3.9 Baso % (Auto) 0.5 Neut # (Auto) 5.10 Lymph # (Auto) 0.50 L [place] # (Auto) 0.80 Eos # (Auto) 0.26 Baso # (Auto) 0.03 Abs Immat Gran (auto) 0.02 Imm/Tot Granulo (auto) 0.3 Sodium 137 Potassium 4.2 Chloride 99 Carbon Dioxide 30 Anion Gap 8 BUN 35 H Creatinine 1.5 Estimated Creat Clear 34.04 Estimated GFR 45 Glucose 136 H Lactate 0.8 Calcium 8.6 Magnesium 2.3 Troponin I < 0.01 L Urine Color Yellow Urine Appearance Cloudy A Urine pH 5.5 Ur Specific [place] 1.015 Urine Protein Trace A Urine Glucose (UA) Negative Urine Ketones Negative Urine Blood Trace-intact A Urine Nitrite Negative Urine Bilirubin Negative Urine Urobilinogen 1.0 Ur Leukocyte Esterase Negative Urine RBC 2-5 A Urine WBC 0-2 Ur Squamous Epith Cells Few Urine Bacteria None SARS-CoV-2 (PCR) POSITIVE SARS-CoV-2 A Influenza Type A (PCR) Negative PCR FLU A Influenza Type B (PCR) Negative PCR FLU B RSV (PCR) Negative PCR RSV 05/01/24 06:22 WBC 5.43 RBC 3.69 L Hgb 11.8 L Hct 35.7 L MCV 97 MCH 32 MCHC 33 RDW Coeff of Edward 13.1 Plt Count 117 L Neut % (Auto) 72.1 H Lymph % (Auto) 9.9 L [place] % (Auto) 13.8 H Eos % (Auto) 2.9 Baso % (Auto) 0.6 Neut # (Auto) 3.90 Lymph # (Auto) 0.50 L [place] # (Auto) 0.70 Eos # (Auto) 0.16 Baso # (Auto) 0.03 Abs Immat Gran (auto) 0.04 Imm/Tot Granulo (auto) 0.7 Sodium 138 Potassium 4.1 Chloride 101 Carbon Dioxide 32 Anion Gap 5 L BUN 32 H Creatinine 1.6 H Estimated Creat Clear 29.84 Estimated GFR 41 Glucose 109 Lactate Calcium 8.6 Magnesium Troponin I Urine Color Urine Appearance Urine pH Ur Specific [place] Urine Protein Urine Glucose (UA) Urine Ketones Urine Blood Urine Nitrite Urine Bilirubin Urine Urobilinogen Ur Leukocyte Esterase Urine RBC Urine WBC Ur Squamous Epith Cells Urine Bacteria SARS-CoV-2 (PCR) Influenza Type A (PCR) Influenza Type B (PCR) RSV (PCR)
[2024-05-01] MEDS: 0.9 % SODIUM CHLORIDE 1000 ml 1,000 ML 200 ML IV (15:54)
[2024-05-01] MEDS: DONEPEZIL 10 MG TABLET PO (18:19)
--- NOTE | 2024-05-01 19:44 | PC.NURSE ---
Pt alert and oriented but easily nods off to sleep during conversation and easily awakens to name or light touch. Urinal and incontinent of urine, per facility staff pt does wear brief at baseline. Also per facility staff last BM recorded as Large on 04/29 & 04/30. Staff attempted to transfer pt to chair for linen and brief change, pt was too weak to stand and pivot with gait belt, walker, and assist of 2.
[2024-05-02] VITALS (8 sets, daily range): BP systolic 110–137; BP diastolic 71–78; PULSE 69–72; RESP 18–24; TEMP 36.2–37.2; O2SAT 90–95
--- NOTE | 2024-05-02 05:44 | PC.NURSE ---
Shift note: Patient has been in bed throughout the shift. Will close eye but answers every question effectively with occasional confusion. He continue to be weak. Attempt to transfer him to [facility] was not successful. Urinal given in bed but could not urinate. Brief soaked and changed x1 tonight. Takes pills whole with water. pt has been on 1L of oxygen throughout the night.
[2024-05-02 06:38] LABS: HCO3 VBG 32 mmol/L (21-28); PCO2 VBG 49 mmHG (40-50); PO2 VBG 52.5 mmHG (25-47); pH VBG 7.426 (7.32-7.43)
[2024-05-02 06:45] LABS: Hematocrit 36.8 % (37.0-53.0); Hemoglobin* 12.1 gm/dL (13.5-17.5); Mean Corpuscular HGB Conc 33 gm/dL (32-36); Mean Corpuscular Hemoglobin 32 pg (26-34); Mean Corpuscular Volume 97 fL (80-100); Platelet Count* 117 K/uL (140-440); White Blood Count* 4.77 K/uL (4.50-11.00)
[2024-05-02] MEDS: ACETAMINOPHEN 325 MG TABLET 650 MG PO (06:46)
[2024-05-02 06:52] LABS: Slide Review Reflex No
[2024-05-02 07:12] LABS: Albumin* 3.7 g/dL (3.3-5.0); Chloride* 101 mmol/L (96-114)
[2024-05-02 07:15] LABS: Blood Urea Nitrogen* 35 mg/dL (7-30); Carbon Dioxide* 31 mmol/L (20-32); Creatinine* 1.5 mg/dL (0.5-1.5); Est. Creatinine Clearance* 31.83; Estimated Glomerular Filt Rate 45 ml/min
[2024-05-02 07:16] LABS: Calcium* 8.4 mg/dL (8.4-10.6); Glucose* 104 mg/dL (60-115); Phosphorus* 3.6 mg/dL (2.5-4.5)
[2024-05-02] MEDS: ATORVASTATIN CALCIUM 10 MG TABLET PO (08:29)
[2024-05-02] MEDS: AMIODARONE 200 MG TABLET 400 MG PO (08:29)
[2024-05-02] MEDS: levETIRAcetam 500 MG TABLET PO ×2 (08:29→20:20)
[2024-05-02] MEDS: APIXABAN 5 MG TABLET PO ×2 (08:29→20:20)
[2024-05-02] MEDS: TORSEMIDE 20 MG TABLET 40 MG PO (08:29)
[2024-05-02] MEDS: GABAPENTIN 100 MG CAPSULE 400 MG PO ×2 (08:29→20:20)
[2024-05-02] MEDS: METOPROLOL SUCCINATE (XL) 25 MG TAB PO ×2 (08:30→20:20)
[2024-05-02] MEDS: LORATADINE 10 MG TABLET PO (08:30)
[2024-05-02] MEDS: LOSARTAN POTASSIUM 50 MG TABLET 25 MG PO (08:30)
[2024-05-02] MEDS: SODIUM CHLORIDE 0.9 % (FLUSH) 10 ML SYRINGE 5 ML IVF (08:30)
[2024-05-02] MEDS: ASPIRIN 81 MG TABLET EC PO (08:30)
[2024-05-02] MEDS: SENNOSIDES 1 TAB TABLET 2 TAB PO (08:30)
[2024-05-02 09:06] LABS: Anion Gap 5 mEq/L (7-15); Sodium* 137 mmol/L (135-149)
--- NOTE | 2024-05-02 13:42 | PM.IMPN1 ---
Progress Note: A&P Assessment and plan (1) COVID: Problem details: - 04/30/24 - weakness primary symptom, + fever, mild hypoxia - no inpatient COVID specific therapies recommended at this time - discussed risk of Paxlovid and with new hypoxia and his home meds of amiodarone; apixaban, atorvastatin - risk is too high for Paxlovid and risk is too high to take him off the offending meds Status: Acute (2) Persistent atrial fibrillation: Problem details: - on Amiodarone, Metoprolol, anticoagulated on Eliquis - cardioversion x2 in 2023, pacemaker 2023 - follows with [facility] Status: Acute (3) Seizure disorder: Problem details: - on Keppra Status: Acute (4) Cognitive impairment: Problem details: - on Donepezil Status: Acute (5) Hypoxia: Problem details: 0.5-1 liter to keep sats above 90 mild respiratory distress to hypoxemia; 04/11 acute covid Status: Acute (6) XIOMY (acute kidney injury): Problem details: improving; will bolus again 1 liter over 5 hours Status: Acute Subjective Date Seen: 05/02/24 Interval history: Daily Progress Note - Hospital Medicine Day #: 3 CC: Covid weakness Symptom onset: 04/30 Positive test: 04/30 24 HOUR UPDATE: stable night. no further fevers. Remains in need of 1L/NC oxygen to keep sats above 90% Patient has been in bed throughout the shift. Will close eye but answers every question effectively with occasional confusion. He continue to be weak. Attempt to transfer him to [facility] was not successful. Urinal given in bed but could not urinate. Brief soaked and changed x1 tonight. Takes pills whole with water. pt has been on 1L of oxygen throughout the night. Notable Labs, Micro, Rads, Interventions: CBC is essentially stable. Creatinine is now 1.5 (1.6), baseline appears to be 1.1-1.3 crp is now 7.0 and was 2.2 on admission Blood culture is negative to date Chest x-ray reviewed from admission. EKG reviewed from admission. Objective: remains weak Vitals: see above Lungs: scattered rhonchi Cardiac: S1S2. Disposition/Potential discharge - likely back to [facility] once strength is near baseline. Exam Const: Vital Signs, click to edit/add: Vital Signs - 24 hr 05/01/24 15:00 05/01/24 15:00 05/01/24 15:00 Temperature 99.4 F Pulse Rate 70 Pulse Rate [Pulse Oximeter] 70 Respiratory Rate 20 Blood Pressure [Le ft Arm] 155/70 H Blood Pressure [Ri ght Arm] Pulse Oximetry 93 93 Oxygen Delivery Me thod Nasal Cannula Oxygen Flow Rate 1 05/01/24 15:00 05/01/24 15:00 05/01/24 19:00 Temperature 98.8 F Pulse Rate Pulse Rate [Pulse Oximeter] 70 70 Respiratory Rate 18 18 18 Blood Pressure [Le ft Arm] Blood Pressure [Ri ght Arm] 154/69 H Pulse Oximetry 93 94 Oxygen Delivery Me thod Nasal Cannula Nasal Cannula Oxygen Flow Rate 1 1 05/01/24 22:30 05/01/24 22:30 05/01/24 22:30 Temperature Pulse Rate Pulse Rate [Pulse Oximeter] 70 Respiratory Rate 18 18 Blood Pressure [Le ft Arm] Blood Pressure [Ri ght Arm] Pulse Oximetry 94 94 Oxygen Delivery Me thod Nasal Cannula Oxygen Flow Rate 1 05/01/24 22:30 05/01/24 23:00 05/02/24 02:51 Temperature 98 F 98.9 F Pulse Rate 70 Pulse Rate [Pulse Oximeter] 70 70 Respiratory Rate 18 18 Blood Pressure [Le ft Arm] Blood Pressure [Ri ght Arm] 149/69 H 115/71 Pulse Oximetry 94 90 Oxygen Delivery Me thod Nasal Cannula Nasal Cannula Oxygen Flow Rate 1 1 05/02/24 07:36 05/02/24 08:26 05/02/24 08:26 Temperature 98.1 F Pulse Rate 70 Pulse Rate [Pulse Oximeter] 72 Respiratory Rate 20 20 Blood Pressure [Le ft Arm] 129/74 Blood Pressure [Ri ght Arm] Pulse Oximetry 91 91 Oxygen Delivery Me thod Nasal Cannula Nasal Cannula Oxygen Flow Rate 1 1 05/02/24 08:26 05/02/24 12:33 Temperature 97.6 F Pulse Rate Pulse Rate [Pulse Oximeter] 71 Respiratory Rate 18 Blood Pressure [Le ft Arm] Blood Pressure [Ri ght Arm] 110/71 Pulse Oximetry 91 93 Oxygen Delivery Me thod Nasal Cannula Oxygen Flow Rate 1 Labs Labs: Laboratory Results - last 24 hr 05/02/24 06:19 WBC 4.77 RBC 3.80 L Hgb 12.1 L Hct 36.8 L MCV 97 MCH 32 MCHC 33 Plt Count 117 L VBG pH 7.426 VBG pCO2 49 VBG pO2 52.5 H VBG HCO3 32 H Sodium 137 Potassium 4.0 Chloride 101 Carbon Dioxide 31 Anion Gap 5 L BUN 35 H Creatinine 1.5 Estimated Creat Clear 31.83 Estimated GFR 45 Glucose 104 Calcium 8.4 Phosphorus 3.6 C-Reactive Protein 7.0 H Albumin 3.7
[2024-05-02] MEDS: 0.9 % SODIUM CHLORIDE 1000 ml 1,000 ML 200 ML IV (15:41)
--- NOTE | 2024-05-02 16:14 | PC.NURSE ---
O2 sats 91-93% 1L/NC. Lung sounds diminished. Non-productive cough. Afebrile.
[2024-05-02] MEDS: DONEPEZIL 10 MG TABLET PO (17:07)
[2024-05-03] VITALS (9 sets, daily range): BP systolic 116–150; BP diastolic 69–80; PULSE 68–79; RESP 18–20; TEMP 36.6–36.8; O2SAT 85–98
--- NOTE | 2024-05-03 05:34 | PC.NURSE ---
End of shift report [id number]: Alert and oriented to name and date. Pleasant and cooperative with cares. Denies any pain or shortness of breath. O2 at 1L per nasal cannula to maintain O2 sats >90% throughout the night. Intermittent, non productive cough. Incontinent of bladder and bowel, small loose stool this shift. Ceiling lift for transfers, patient stayed in bed this shift.
[2024-05-03 06:37] LABS: Basophils Absolute Auto 0.02 K/uL (0.00-0.30); Basophils Percent Auto 0.3 % (0.0-3.0); Eosinophils Absolute Auto 0.19 K/uL (0.00-0.50); Eosinophils Percent Auto 3.3 % (0.0-7.0); Hematocrit 39.7 % (37.0-53.0); Hemoglobin* 12.7 gm/dL (13.5-17.5); Immature Granulocytes Abs Auto 0.01 K/uL (0.00-0.30); Immature Granulocytes Pct Auto 0.2 %; Lymphocytes Percent Auto 15.7 % (20-44); Mean Corpuscular HGB Conc 32 gm/dL (32-36); Mean Corpuscular Hemoglobin 32 pg (26-34); Mean Corpuscular Volume 99 fL (80-100); Monocytes Percent Auto 14.3 % (0.0-11.0); Neutrophils Absolute Auto 3.78 K/uL (1.7-7.0); Neutrophils Percent Auto 66.2 % (42.0-72.0); Platelet Count* 108 K/uL (140-440); RDW Coefficient of Variation % 13.1 % (11.5-15.5); Red Blood Count 4.03 m/uL (4.30-5.90); White Blood Count* 5.72 K/uL (4.50-11.00)
[2024-05-03 06:51] LABS: Slide Review Reflex No
[2024-05-03 07:08] LABS: Chloride* 102 mmol/L (96-114); Sodium* 141 mmol/L (135-149)
[2024-05-03 07:09] LABS: Albumin* 3.7 g/dL (3.3-5.0)
[2024-05-03 07:12] LABS: Anion Gap 5 mEq/L (7-15); Blood Urea Nitrogen* 40 mg/dL (7-30); Calcium* 8.2 mg/dL (8.4-10.6); Carbon Dioxide* 34 mmol/L (20-32); Creatinine* 1.6 mg/dL (0.5-1.5); Est. Creatinine Clearance* 29.84; Estimated Glomerular Filt Rate 41 ml/min; Glucose* 89 mg/dL (60-115); Phosphorus* 3.8 mg/dL (2.5-4.5)
[2024-05-03 07:15] LABS: C Reactive Protein* 5.8 mg/dL (0.5-1.0)
[2024-05-03 07:26] LABS: Potassium* 3.7 mmol/L (3.6-5.1)
--- NOTE | 2024-05-03 09:10 | NUTR.NU ---
RDN with nutrition screen related to positive skin risk. Patient admitted for weakness, found to have covid. Medical history significant for cognitive impairment. Patient resides at a memory care facility. Current weight 183lb 6.4oz; height 5ft 7in; BMI 28.7 kg/m2. Limited weight history, some weights are stated and not used during assessment. Patient has lost about 5 lbs since admit, suspect this may be due to patient's weakness and inability to feed self at this time. Current diet order is Regular. Meal intakes since admit have ranged from 25-100%, averaging about 50%. He is requiring assistance with eating and drinking. No current nutrition interventions, will continue to monitor and patient and reassess prn.
[2024-05-03] MEDS: ASPIRIN 81 MG TABLET EC PO (09:23)
[2024-05-03] MEDS: ATORVASTATIN CALCIUM 10 MG TABLET PO (09:23)
[2024-05-03] MEDS: SENNOSIDES 1 TAB TABLET 2 TAB PO (09:23)
[2024-05-03] MEDS: TORSEMIDE 20 MG TABLET 40 MG PO (09:23)
[2024-05-03] MEDS: GABAPENTIN 100 MG CAPSULE 400 MG PO ×2 (09:23→20:32)
[2024-05-03] MEDS: APIXABAN 5 MG TABLET PO ×2 (09:23→20:32)
[2024-05-03] MEDS: levETIRAcetam 500 MG TABLET PO ×2 (09:23→20:32)
[2024-05-03] MEDS: AMIODARONE 200 MG TABLET 400 MG PO (09:23)
[2024-05-03] MEDS: SODIUM CHLORIDE 0.9 % (FLUSH) 10 ML SYRINGE 5 ML IVF ×2 (09:24→20:32)
[2024-05-03] MEDS: LORATADINE 10 MG TABLET PO (09:24)
[2024-05-03] MEDS: METOPROLOL SUCCINATE (XL) 25 MG TAB PO ×2 (09:24→20:32)
[2024-05-03] MEDS: LOSARTAN POTASSIUM 50 MG TABLET 25 MG PO (09:31)
[2024-05-03] MEDS: 0.9 % SODIUM CHLORIDE 1000 ml 1,000 ML 200 ML IV (11:51)
--- NOTE | 2024-05-03 12:57 | RESP.RT ---
Pt seen for Cough and Deep breathing, and then aerobika Did well with the treatments. BBS with light Rhonchi in bases which cleard with coughing on demand. Encourage frequent deep breathing and coughing. LDO041% after treatments. Will wean off oxygen.
--- NOTE | 2024-05-03 12:58 | P.IMPN_ITS ---
Progress Note: A&P Assessment and plan (1) COVID: Problem details: - 04/30/24 - weakness primary symptom, + fever, mild hypoxia - no inpatient COVID specific therapies recommended at this time - discussed risk of Paxlovid and with new hypoxia and his home meds of amiodarone; apixaban, atorvastatin - risk is too high for Paxlovid and risk is too high to take him off the offending meds Status: Acute (2) Persistent atrial fibrillation: Problem details: - on Amiodarone, Metoprolol, anticoagulated on Eliquis - cardioversion x2 in 2023, pacemaker 2023 - follows with [facility] Status: Acute (3) Seizure disorder: Problem details: - on Keppra Status: Acute (4) Cognitive impairment: Problem details: - on Donepezil Status: Acute (5) Hypoxia: Problem details: 0.5-1 liter to keep sats above 90 mild respiratory distress to hypoxemia; 04/11 acute covid Status: Acute (6) XIOMY (acute kidney injury): Problem details: mild has had a bolus both 05/02 and 05/03 for 1 liter of NS Status: Acute Subjective Date Seen: 05/03/24 Interval history: Daily Progress Note - Hospital Medicine Day #: 4 CC: Covid weakness, hypoxic resp distress Symptom onset: 04/30 Positive test: 04/30 24 HOUR UPDATE: stable night. no further fevers. Remains in need of 1L/NC oxygen to keep sats above 90%. area of erythema and blister on the left heel. This is likely at least a week old. Notable Labs, Micro, Rads, Interventions: CBC is essentially stable. Creatinine is now 1.6 (1.6, 1.5), baseline appears to be 1.1-1.3 crp is now 5.8, max is 7.0 and was 2.2 on admission Blood culture is negative to date Chest x-ray reviewed from admission. EKG reviewed from admission. Objective: remains weak Vitals: see above Lungs: scattered bibasilar wheeze Cardiac: S1S2. Disposition/Potential discharge - likely back to [facility], [place], operated by [facility] once strength is near baseline. Exam Const: Vital Signs, click to edit/add: Vital Signs - 24 hr 05/02/24 15:43 05/02/24 15:43 05/02/24 15:43 Temperature 97.1 F L Pulse Rate Pulse Rate [Pulse Oximeter] 72 Respiratory Rate 24 24 Blood Pressure [Le ft Arm] Blood Pressure [Ri ght Arm] 137/78 Pulse Oximetry 91 91 91 Oxygen Delivery Me thod Nasal Cannula Nasal Cannula Oxygen Flow Rate 1 1 05/02/24 15:50 05/02/24 19:00 05/02/24 23:00 Temperature 98.3 F Pulse Rate 70 71 Pulse Rate [Pulse Oximeter] 69 Respiratory Rate 24 Blood Pressure [Le ft Arm] 126/71 Blood Pressure [Ri ght Arm] Pulse Oximetry 95 Oxygen Delivery Me thod Nasal Cannula Oxygen Flow Rate 1 05/02/24 23:00 05/02/24 23:00 05/02/24 23:00 Temperature Pulse Rate Pulse Rate [Pulse Oximeter] 71 Respiratory Rate 22 22 Blood Pressure [Le ft Arm] Blood Pressure [Ri ght Arm] Pulse Oximetry 95 95 Oxygen Delivery Me thod Nasal Cannula Oxygen Flow Rate 1 05/02/24 23:00 05/03/24 03:00 05/03/24 07:00 Temperature 98.3 F 98.3 F Pulse Rate Pulse Rate [Pulse Oximeter] 71 70 Respiratory Rate 22 20 Blood Pressure [Le ft Arm] 125/78 Blood Pressure [Ri ght Arm] 123/73 Pulse Oximetry 95 94 95 Oxygen Delivery Me thod Nasal Cannula Nasal Cannula Oxygen Flow Rate 1 1 05/03/24 07:00 05/03/24 07:00 05/03/24 07:00 Temperature 98.1 F Pulse Rate Pulse Rate [Pulse Oximeter] 74 74 Respiratory Rate 18 18 18 Blood Pressure [Le ft Arm] Blood Pressure [Ri ght Arm] 150/76 H Pulse Oximetry 95 95 Oxygen Delivery Me thod Nasal Cannula Nasal Cannula Oxygen Flow Rate 1 1 05/03/24 07:00 05/03/24 11:00 Temperature 98.1 F Pulse Rate 69 Pulse Rate [Pulse Oximeter] 70 Respiratory Rate 20 Blood Pressure [Le ft Arm] 135/71 Blood Pressure [Ri ght Arm] Pulse Oximetry 95 Oxygen Delivery Me thod Nasal Cannula Oxygen Flow Rate 1 Labs Labs: Laboratory Results - last 24 hr 05/03/24 06:04 WBC 5.72 RBC 4.03 L Hgb 12.7 L Hct 39.7 MCV 99 MCH 32 MCHC 32 RDW Coeff of Edward 13.1 Plt Count 108 L Neut % (Auto) 66.2 Lymph % (Auto) 15.7 L Pine % (Auto) 14.3 H Eos % (Auto) 3.3 Baso % (Auto) 0.3 Neut # (Auto) 3.78 Lymph # (Auto) 0.90 Pine # (Auto) 0.80 Eos # (Auto) 0.19 Baso # (Auto) 0.02 Abs Immat Gran (auto) 0.01 Imm/Tot Granulo (auto) 0.2 Sodium 141 Potassium 3.7 Chloride 102 Carbon Dioxide 34 H Anion Gap 5 L BUN 40 H Creatinine 1.6 H Estimated Creat Clear 29.84 Estimated GFR 41 Glucose 89 Calcium 8.2 L Phosphorus 3.8 C-Reactive Protein 5.8 H Albumin 3.7
[2024-05-03] MEDS: CARBOXYMETHYLCELLULOSE (REFRESH PLUS) TEARS 2 DROP EYE-BOTH (15:04)
[2024-05-03] MEDS: DONEPEZIL 10 MG TABLET PO (18:20)
[2024-05-03] MEDS: CARBOXYMETHYLCELLULOSE (REFRESH PLUS) TEARS 1 DROP EYE-BOTH ×2 (18:24→23:49)
--- NOTE | 2024-05-03 20:16 | PC.NURSE ---
End of shift: patient alert and oriented, occa. forgetfulness. Calls appropriately. Patient uses urinal at bedside. Assist of 2 with walker or ric steady to chair. on RA last 3 hrs of shift and sating at 93%. Patient able to feed himself with sba. VSS. Afebrile this shift. pleasant and cooperative with cares.
[2024-05-03] MEDS: MINERAL OIL/PETROLATUM,WHITE 3.5 GM OINT...G. EYE-BOTH (20:33)
[2024-05-04 04:57] VITALS: BP 121/49; PULSE 71; RESP 20; TEMP 36.7; O2SAT 96
[2024-05-04] MEDS: CARBOXYMETHYLCELLULOSE (REFRESH PLUS) TEARS 1 DROP EYE-BOTH ×2 (05:05→11:45)
--- NOTE | 2024-05-04 06:13 | PC.NURSE ---
Pt alert and oriented with intermittent confusion. Pt up with assist of two to the commode. Pt refused 23 vital signs. Pt was on RA for part of shift and would drop to Mid 80?s-90; Pt put on 0.5 Liters nasal cannula and maintained saturations 90-97%.?
[2024-05-04 06:34] LABS: Hematocrit 38.7 % (37.0-53.0); Hemoglobin* 12.5 gm/dL (13.5-17.5); Mean Corpuscular HGB Conc 32 gm/dL (32-36); Mean Corpuscular Hemoglobin 32 pg (26-34); Mean Corpuscular Volume 98 fL (80-100); Platelet Count* 107 K/uL (140-440); Red Blood Count 3.96 m/uL (4.30-5.90); White Blood Count* 4.69 K/uL (4.50-11.00)
[2024-05-04 06:43] LABS: Albumin* 3.5 g/dL (3.3-5.0); Chloride* 103 mmol/L (96-114); Sodium* 141 mmol/L (135-149)
[2024-05-04 06:44] LABS: Potassium* 3.6 mmol/L (3.6-5.1)
[2024-05-04 06:46] LABS: Blood Urea Nitrogen* 41 mg/dL (7-30); Creatinine* 1.7 mg/dL (0.5-1.5); Est. Creatinine Clearance* 28.08; Estimated Glomerular Filt Rate 38 ml/min
[2024-05-04 06:47] LABS: Anion Gap 3 mEq/L (7-15); Carbon Dioxide* 35 mmol/L (20-32); Glucose* 90 mg/dL (60-115); Phosphorus* 3.8 mg/dL (2.5-4.5)
[2024-05-04 06:50] LABS: C Reactive Protein* 4.8 mg/dL (0.5-1.0)
[2024-05-04 06:57] LABS: Slide Review Reflex No
[2024-05-04 07:51] VITALS: PULSE 70
[2024-05-04 09:36] VITALS: BP 116/81; PULSE 74; RESP 18; TEMP 36.7; O2SAT 92
[2024-05-04] MEDS: APIXABAN 5 MG TABLET PO (09:44)
[2024-05-04] MEDS: METOPROLOL SUCCINATE (XL) 25 MG TAB PO (09:45)
[2024-05-04] MEDS: AMIODARONE 200 MG TABLET 400 MG PO (09:45)
[2024-05-04] MEDS: SENNOSIDES 1 TAB TABLET 2 TAB PO (09:45)
[2024-05-04] MEDS: levETIRAcetam 500 MG TABLET PO (09:45)
[2024-05-04] MEDS: ASPIRIN 81 MG TABLET EC PO (09:45)
[2024-05-04] MEDS: LOSARTAN POTASSIUM 50 MG TABLET 25 MG PO (09:46)
[2024-05-04] MEDS: ATORVASTATIN CALCIUM 10 MG TABLET PO (09:47)
[2024-05-04] MEDS: TORSEMIDE 20 MG TABLET 40 MG PO (09:47)
[2024-05-04] MEDS: GABAPENTIN 100 MG CAPSULE 400 MG PO (09:47)
[2024-05-04] MEDS: LORATADINE 10 MG TABLET PO (09:47)
[2024-05-04] MEDS: SODIUM CHLORIDE 0.9 % (FLUSH) 10 ML SYRINGE 5 ML IVF (09:48)
--- NOTE | 2024-05-04 10:08 | PC.SOCIAL ---
Discharge planning: Called [facility] memory care assisted living nurse, Adore, and informed her of planned discharge today. Adore is aware pt is two person assist and confirms he can receive that level of care in the unit where he lives. Adore arranged for a van crab picker at 1:30 today. Adore states their nurse will call hospital for nurse to nurse. Facility to bring his own wheelchair for transport. Called pt's dtr, Edna, who is currently in [place]. She is aware of planned discharge today and is requesting to talk with MD prior to discharge. Edna confirmed that when discharged, pt should return to [facility] by their facility vanand care should be coordinated with the [facility] nurses. explosives worker to follow up as needed.
--- NOTE | 2024-05-04 10:39 | PC.NURSE ---
Nurse to Nurse report given to Catarina at [facility].
[2024-05-04 11:48] VITALS: BP 155/82; PULSE 85; RESP 16; TEMP 36.6; O2SAT 94
--- NOTE | 2024-05-04 13:53 | PC.NURSE ---
Discharge: Patient sassy and cooperative, at times rude. Patient vitally stable, lungs course, BS WNL, IV removed, catheter intact. Patient denies pain and ambulates 1 assist/walker/gb. Patient using the toilet and urinal to urinate, no BM. Tele=paced. Patient tolerating regular diet. Patient signed belongings sheet and discharge form with no further questions.Patient left the floor by wheelchair to [facility] by [facility] van at [phone].
--- NOTE | 2024-05-04 16:13 | P.DS_ITS ---
DS: Providers Provider Date Seen: 05/04/24 Date of admission: 05/02/24 15:27 Primary care physician: To Mata MD Admitting Clinician: Denise Moseley MD Consults: 05/03/24 09:11 Consult to Occupational Therapy [CONS] Routine Comment: Reason(s) for OT Consult:: Evaluate and Treat Any Restrictions?:: No Restrictions Consult to Physical Therapy [CONS] Routine Comment: Reason(s) for PT Consult:: Evaluate and Treat Any Restrictions?:: No Restrictions 05/03/24 10:39 Consult to Respiratory Therapy [CONS] Routine Comment: Reason(s) for RT Consult:: Consult Attending Physician on discharge: Moshe Bennett MD Date of Discharge: 05/04/24 DS: Diagnosis Discharge Diagnosis (1) COVID: Status: Acute Problem details: - 04/30/24 - weakness primary symptom, + fever, mild hypoxia - no inpatient COVID specific therapies recommended at this time - discussed risk of Paxlovid and with new hypoxia and his home meds of amiodarone; apixaban, atorvastatin - risk is too high for Paxlovid and risk is too high to take him off the offending meds (2) Hypoxia: Status: Acute Problem details: 0.5-1 liter to keep sats above 90 mild respiratory distress to hypoxemia; 2/2 acute covid (3) XIOMY (acute kidney injury): Status: Acute Problem details: mild has had a bolus both 05/02 and 05/03 for 1 liter of NS (4) Cognitive impairment: Status: Acute Problem details: - on Donepezil (5) Seizure disorder: Status: Acute Problem details: - on Keppra (6) Persistent atrial fibrillation: Status: Acute Problem details: - on Amiodarone, Metoprolol, anticoagulated on Eliquis - cardioversion x2 in 2023, pacemaker 2023 - follows with [facility] (7) BPH (benign prostatic hyperplasia): Status: Acute DS: Summary Hospital Course Hospital Course: Admission history of present illness: ?88 year old male who presented to the ER from [facility]) for weakness in the setting of COVID infection. This morning was weaker than baseline and required a lift to get out of bed. Known outbreak of COVID in his facility, so tested given weakness and it was positive. No dyspnea, no chest pain. ?ER Course and Findings: - no acute abnormalities on CXR - + COVID, T of 101.2, normalized with APAP - negative troponin, normal lactate - normal WBC, Hgb 12.2 (baseline), platelets 123 (h/o platelets as low as 108 on chart review) - Creatinine 1.5 (was 1.68 10 days ago in [facility], typically 1-1.3 per chart review)? Decision was made early on that the risk of using packs lobe id was too great for this patient given the multiple medications he requires to maintain his health. Patient was treated symptomatically in the hospital and gradually improved. Status at Discharge Overall status at discharge: patient is progressing back to baseline Time Spent with Patient Time attestation: Total time spent providing and/or coordinating discharge services: Time spent: Greater than 30 minutes Exam Narrative: Exam Narrative: Objective: remains weak Vitals: see above Lungs: scattered bibasilar wheeze Cardiac: S1S2. Generally weak. Continues to require assist of 1-2 with transferring ambulation. Const: Vital Signs, click to edit/add: Vital Signs - 24 hr 05/03/24 20:20 05/03/24 20:20 05/03/24 21:19 Temperature 98.0 F Pulse Rate 69 Pulse Rate [Pulse Oximeter] 68 69 Respiratory Rate 20 20 Blood Pressure [Le ft Arm] 120/80 Pulse Oximetry 92 Oxygen Delivery Me thod Room Air Oxygen Flow Rate 05/03/24 21:58 05/03/24 21:58 05/03/24 23:49 Temperature Pulse Rate Pulse Rate [Pulse Oximeter] 70 Respiratory Rate 18 Blood Pressure [Le ft Arm] Pulse Oximetry 85 L 95 98 Oxygen Delivery Me thod Room Air Nasal Cannula Nasal Cannula Oxygen Flow Rate 0.5 0.5 05/03/24 23:51 05/03/24 23:51 05/04/24 04:57 Temperature 98.0 F Pulse Rate Pulse Rate [Pulse Oximeter] 71 Respiratory Rate 18 20 Blood Pressure [Le ft Arm] 121/49 L Pulse Oximetry 98 98 96 Oxygen Delivery Me thod Nasal Cannula Nasal Cannula Oxygen Flow Rate 0.5 0.5 05/04/24 07:51 05/04/24 09:36 05/04/24 09:36 Temperature 98.1 F Pulse Rate 70 Pulse Rate [Pulse Oximeter] 74 Respiratory Rate 18 Blood Pressure [Le ft Arm] 116/81 Pulse Oximetry 92 92 Oxygen Delivery Me thod Room Air Oxygen Flow Rate 05/04/24 09:36 05/04/24 09:36 05/04/24 11:48 Temperature 97.8 F Pulse Rate Pulse Rate [Pulse Oximeter] 74 85 Respiratory Rate 18 18 16 Blood Pressure [Le ft Arm] 155/82 H Pulse Oximetry 92 94 Oxygen Delivery Me thod Room Air Room Air Oxygen Flow Rate DS: Data Data Completed and Pending Labs on day of discharge: Labs from last 24 hours 05/04/24 05:58 WBC 4.69 RBC 3.96 L Hgb 12.5 L Hct 38.7 MCV 98 MCH 32 MCHC 32 Plt Count 107 L Sodium 141 Potassium 3.6 Chloride 103 Carbon Dioxide 35 H Anion Gap 3 L BUN 41 H Creatinine 1.7 H Estimated Creat Clear 28.08 Estimated GFR 38 Glucose 90 Calcium 8.0 L Phosphorus 3.8 C-Reactive Protein 4.8 H Albumin 3.5 Preliminary micro results at discharge 04/30/24 20:35 Blood Culture - Preliminary Blood NO GROWTH AFTER 72 HOURS Imaging Chest x-ray: Attestation: I have reviewed the pertinent imaging results. Radiologist's impression: Findings/Impression: Left-sided pacemaker generator with leads projecting over the right atrium and right ventricle. Unchanged right clavicular hardware. Discharge Plan Discharge Disposition: [facility] Date of Admission: 05/02/24 15:27 Attending Provider on Discharge: Moshe Bennett Primary Care Provider: To Mata Condition: Stable Anticipated Discharge Date/Time: 05/04/24 12:30 Discharge Medications: Continued bisacodyl [Dulcolax (bisacodyl)] 10 mg suppository 10 mg [place] DAILY PRN furosemide 20 mg tablet 20 mg PO DAILY Patient Comments: [NO ORIGINAL SIG] Ear Wax Removal Drops 6.5 % drops 4 drp otic (ear) Q12H PRN Patient Comments: INSTILL 4 DROPS INTO EACH EAR NIGHTLY FOR 5 NIGHTS THEN FLUSH Refresh Optive 1-0.9 % drops,gel 2 drp ophthalmic (eye) DAILY Patient Comments: INSTILL 2 DROPS INTO IN BOTH EYES DAILY FOR DRY EYES cyanocobalamin (vitamin B-12) 1,000 mcg tablet 1,000 mcg PO DAILY Patient Comments: [NO ORIGINAL SIG] acetaminophen 325 mg tablet 650 mg PO Q4H PRN (Reason: mild pain) loperamide 2 mg capsule 2 mg PO Q4H PRN (Reason: diarrhea) atorvastatin 10 mg tablet 10 mg PO DAILY levetiracetam 500 mg tablet 500 mg PO BID donepezil 10 mg tablet 10 mg PO QPM gabapentin 100 mg capsule 400 mg PO BID Eliquis 5 mg tablet 5 mg PO BID melatonin 3 mg tablet 3 mg PO HS PRN sennosides [senna] 8.6 mg tablet 17.2 mg PO QAM metoprolol succinate 25 mg tablet extended release 24 hr 25 mg PO BID Systane Gel 0.4-0.3 % drops,gel 1 drp ophthalmic (eye) QPM aspirin 81 mg tablet,delayed release (DR/EC) 81 mg PO DAILY torsemide 20 mg tablet 40 mg PO DAILY loratadine [Claritin RediTabs] 10 mg tablet,disintegrating 10 mg PO DAILY losartan 25 mg tablet 25 mg PO DAILY amiodarone 400 mg tablet 400 mg PO DAILY Discontinued lisinopril 20 mg tablet 20 mg PO DAILY Discharge Orders: Discharge Order (Routine); Ordered 05/04/24 Ordered By: Moshe Bennett Activity Level: No Restrictions and Activity as Tolerated Discharge Diet: Regular Follow Up Appointments: To Mata MD [Primary Care Provider] - Forms: [facility] Info Instructions Admit to: SNF Discharge Potential: Fair Length of Stay: 30-90 days Can use facility standing orders?: Yes Code Status: Full Code Rehab Potential: Fair Therapy: Physical Therapy Therapy Orders: Evaluate and Treat Oxygen: No Urinary Catheter: No Orders are good >30 days: Yes Signature: Moshe Bennett
== END 2024-05-04 13:36 | DRG 137 ==
LOC: ED 21:22 → MEDSURG 21:40
PROVIDERS: Admitting Provider Family Medicine; Emergency Provider Student in an Organized Health Care Education/Training Program; PCP Family Medicine; Visit Provider Family Medicine
DX: U07.1 COVID-19 (principal); R06.03 Acute respiratory distress; R09.02 Hypoxemia; N17.9 Acute kidney failure, unspecified; R60.0 Localized edema; I48.19 Other persistent atrial fibrillation; Z79.01 Long term (current) use of anticoagulants; N40.0 Benign prostatic hyperplasia without lower urinary tract symptoms; R41.89 Other symptoms and signs involving cognitive functions and awareness; G40.909 Epilepsy, unspecified, not intractable, without status epilepticus; I10 Essential (primary) hypertension; Z95.0 Presence of cardiac pacemaker; I44.7 Left bundle-branch block, unspecified; I35.0 Nonrheumatic aortic (valve) stenosis; H35.30 Unspecified macular degeneration; E78.5 Hyperlipidemia, unspecified
CPT/HCPCS: 36415; 51702; 71045; 80048; 80069; 81001; 82803; 83605; 83735; 84484; 85025; 85027; 86140; 87040; 87631; 93005; 94664; 94761; 97116; 97162; 97165; 97530; 97535; 99284; 99285; A9270; G0378; J7030

== ENCOUNTER 2024-05-25 11:18 | Outpatient (REF) | payer BC, SELFPAY ==
[2024-05-25 11:56] LABS: Chloride* 98 mmol/L (96-114); Potassium* 4.3 mmol/L (3.6-5.1); Sodium* 137 mmol/L (135-149)
[2024-05-25 11:59] LABS: Anion Gap 9 mEq/L (7-15); Blood Urea Nitrogen* 27 mg/dL (7-30); Calcium* 8.8 mg/dL (8.4-10.6); Carbon Dioxide* 30 mmol/L (20-32); Creatinine* 1.6 mg/dL (0.5-1.5); Estimated Glomerular Filt Rate 41 ml/min; Glucose* 105 mg/dL (60-115)
== END 2024-05-25 11:19 | disposition home or self-care (01) ==
LOC: NPINS 11:18
PROVIDERS: PCP Family Medicine; Visit Provider Nurse Practitioner Gerontology
DX: I10 Essential (primary) hypertension (principal)
CPT/HCPCS: 80048

== ENCOUNTER 2024-06-25 08:20 | Outpatient (CLI) | payer BC, SELFPAY | END 2024-06-25 08:21 | disposition home or self-care (01) | LOC: AMB 09:26 | PROVIDERS: PCP Family Medicine; Visit Provider Family Medicine | DX: K92.1 Melena (principal) | CPT/HCPCS: A0425; A0429 ==

== ENCOUNTER 2024-06-25 08:41 | Emergency (ER) | payer BC, SELFPAY ==
[2024-06-25] VITALS (9 sets, daily range): BP systolic 114–135; BP diastolic 66–84; PULSE 70–83; RESP 16–18; TEMP 36.5; O2SAT 91–95; BMI 29.8
--- OUTSIDE RECORDS SUMMARY | 2024-06-25 08:44 | XMS_ITS | Clinical Summary ---
Author Organization [facility] Address [address] , [address] [place] [address] Phone Care Team Providers Care Resource Specialist Teacher Name Role Phone Marielos Walters Unavailable Unavailable Conditions or Problems Problem Name Problem Code Onset Date Status Entry Date Provider Comment Standard Description Annotate Carpal tunnel syndrome, left 08533719 (SNOMED CT) 06/09 Active 06/09 Ryan Oliveira MD Carpal tunnel syndrome Neutropenia 379204324 (SNOMED CT) 04/28 Active 04/28 Ryan Oliveira MD Neutropenia Abnormal labs - low sbc/lymph 720319982 (SNOMED CT) 03/29 Active 03/29 Ryan Oliveira MD Laboratory test result abnormal Memory loss 45501630 (SNOMED CT) 07/22 Resolved 07/22 Ryan Oliveira MD Amnesia Hand weakness, left 794343565 (SNOMED CT) 03/29 Active 03/29 Ryan Oliveira MD Weakness of hand Hand pain, left with new paresthesia 16964473 (SNOMED CT) 03/29 Active 03/29 Ryan Oliveira MD Hand pain Dementia 08384622 (SNOMED CT) 10/23 Active 10/23 Ryan Oliveira MD Dementia Memory loss 99169342 (SNOMED CT) 07/22 Removed 07/22 Shantell Yanez PA-C Amnesia Resting tremor 72417262 (SNOMED CT) 04/08 Active 04/09 Ryan Oliveira MD Resting tremor HEADACHE 415488053 (SNOMED CT) 10/30 Resolved 10/30 Ryan Oliveira MD Elevated level of transaminase and lactic acid dehydrogenase Sleep apnea 32938760 (SNOMED CT) 07/24 Resolved 07/24 Ryan Oliveira MD Sleep apnea Balance problem 471095121 (SNOMED CT) 04/08 Active 04/08 Ryan Oliveira MD Impairment of balance Epilepsy 09063348 (SNOMED CT) 12/01 Active 12/01 Shantell Yanez PA-C Epilepsy Frequent falls 585078305 (SNOMED CT) 11/22 Active 11/22 Esequiel Patel MD Recurrent falls Confusion 91101496 (SNOMED CT) 11/10 Active 11/10 Esequiel Patel MD Clouded consciousness HEADACHE 341452891 (SNOMED CT) 10/30 Removed 10/30 Chanel Brandon Elevated level of transaminase and lactic acid dehydrogenase Sleep apnea 43218507 (SNOMED CT) 07/24 Removed 07/24 Esequiel Patel MD Sleep apnea ESSENTIAL TREMOR 577946945 (SNOMED CT) 06/18 Active 06/18 Bhupendra Kwan MD Essential tremor DIPLOPIA 20512795 (SNOMED CT) 06/18 Active 06/18 Bhupendra Kwan MD Diplopia HEADACHE 97582534 (SNOMED CT) 10/30 Inactive 10/30 Bhupendra Kwan MD Headache Medications Medication Instructions Start Date Stop Date Generic Name [facility] Provider GABAPENTIN 400 MG CAPS 4 caps or 400 mg 2x per day 06/09 gabapentin 35812092420 Ryan Oliveira MD GABAPENTIN 400 MG CAPS Take 1 capsule by mouth twice a day 06/09 gabapentin 22766064796 Ryan Oliveria MD MEMANTINE HCL 10 MG TABS 1/2 tablet by mouth as directed : half tab or 5 mg/night for 1 week, then 5 mg 2 times/day for 1 week, then increase by 5 mg/day every 1 wk until 10 mg 2 times/day May decrease to previous lower doze if have bad nausea or GI side effects until next visit's discussion. 06/09 memantine 04696481673 Ryan Oliveira MD FUROSEMIDE 20 MG TABS 06/09 furosemide 66060984906 Ryan Oliveira MD Imodium A-D 2 mg tablet 1 tab every 4 hours as needed for loose stools 06/09 loperamide 17377453535 Ryan Oliveira MD GABAPENTIN 400 MG CAPS 400 mg or 4 caps nightly and 2 cap in am; may increase am doze by 100 mg every 4 days until Lt hand pain under controlled or until 400 mg 2x per day 03/30 gabapentin 17517347724 Ryan Oliveira MD LISINOPRIL 20 MG TABS Take 1 tablet by mouth once a day 03/21 lisinopril 47785528235 Ryan Oliveira MD GABAPENTIN 400 MG CAPS 4 caps or 400 mg 2x per day 06/09 gabapentin 28655578138 Ryan Oliveira MD LOSARTAN POTASSIUM 25 MG TABS losartan 95974906530 Ryan Oliveira MD TORSEMIDE 20 MG TABS torsemide 905626271 01 Ryan Oliveira MD AMIODARONE HCL 400 MG TABS amiodarone 12138601060 Ryan Oliveira MD ACETAMINOPHEN 325 MG TABS acetaminophen 35311500365 Ryan Reveles MD ASPIRIN 325 MG TABS 81 mg aspirin 24979696599 Ryan Oliveira MD DULCOLAX 10 MG SUPP bisacodyl 1990984850 5 Ryan Oliveira MD FUROSEMIDE 20 MG TABS 06/09 furosemide 18915358893 Ryan Oliveira MD ALUM & MAG HYDROXIDE-SIMETH 0712-6507-291 MG/30ML SUSP alum-mag hydroxide-simeth 44424311118 Ryan Oliveira MD MILK OF MAGNESIA 2400 MG/30ML SUSP magnesium hydroxide 85424979435 Ryan Oliveira MD GABAPENTIN 400 MG CAPS 400 mg or 4 caps nightly 03/29 gabapentin 70913869369 Ryan Oliveira MD GABAPENTIN 400 MG CAPS 400 mg or 4 caps nightly and 2 cap in am; may increase am doze by 100 mg every 4 days until Lt hand pain under controlled or until 400 mg 2x per day 03/30 gabapentin 15110309146 Ryan Oliveira MD GABAPENTIN 400 MG CAPS 1 cap once daily 01/27 gabapentin 61913295042 Ryan Oliveira MD DONEPEZIL HCL 10 MG TABS 5 mg/night by mouth for 4 weeks, then 10 mg/night. May decrease to 5 mg/night if have bad nausea or significant side effects until next visit's discussion. 10/23 donepezil 39977254646 Ryan Oliveira MD GABAPENTIN 100 MG CAPS 4 cap po once daily 01/27 gabapentin 63748828494 Ryan Oliveira MD GABAPENTIN 400 MG CAPS 400 mg or 4 caps nightly 03/29 gabapentin 39295132900 Ryan Oliveira MD GABAPENTIN 400 MG CAPS 1 cap once nightly 03/29 gabapentin 21004494664 Ryan Oliveira MD DONEPEZIL HCL 10 MG TABS 10 mg/night. May decrease to 5 mg/night if have bad nausea or significant side effects until next visit's discussion. 03/29 donepezil 43886310259 Ryan Oliveira MD LEVETIRACETAM 500 MG TABS TAKE ONE TABLET BY MOUTH TWICE DAILY 07/16 levetiracetam 41679223837 Ryan Oliveira MD DONEPEZIL HCL 10 MG TABS 5 mg/night by mouth for 4 weeks, then 10 mg/night. May decrease to 5 mg/night if have bad nausea or significant side effects until next visit's discussion. 10/23 donepezil 96221940915 Ryan Oliveira MD SYSTANE ICAPS AREDS2 TABS 1 cap BID 10/23 vit c-vit m-lu-bd-lutein-ze ax 51791802481 Ryan Oliveira MD PRESERVISION AREDS CAPS vitamins a,c,k-avvs-gfvera 45947070634 Ryan Oliveira MD B34-TVYZMI 1 MG CHEW meco balamin (vitamin b12) 15153660737 Ryan Oliveira MD RA FISH OIL 1000 MG CAPS 07/22 docosahexaenoic acid-epa 02136045053 Shantell Yanez SOLE-C VITAMIN P28-IPKVU ACID 500-400 MCG TABS 07/22 vitamin b20-cxfdx acid 94794206635 Shantell Domíngueztraci WHIPPLE-C ELIQUIS 5 MG TABS 1 tab BID apixaban 32861035111 Shantell Yanez SOLE-C SYSTANE ICAPS AREDS2 TABS 1 cap BID 10/23 vit c-vit u-zk-gy-lutein-ze ax 42208949294 Shantell Yanez SOLE-C VITAMIN B-12 1000 MCG TABS 1 tab daily cyanocobalamin (vitamin b-12) 01901028830 Shantell Domíngueztraci WHIPPLE-C GABAPENTIN 100 MG CAPS 4 cap po once daily 01/27 gabapentin 34801957662 Shantell Yanez SOLE-C GABAPENTIN 400 MG CAPS 1 cap once daily 01/27 gabapentin 36548037982 Shantell Yanez SOLE-C Imodium A-D 2 mg tablet 1 tab once daily for loose stools loperamide 97144997602 Shantell Domínguezil PA-C Imodium A-D 2 mg tablet 1 tab every 4 hours as needed for loose stools 06/09 loperamide 91250951819 Shantell Yanez SOLE-C MELATONIN 3 MG TABS 1 tab as needed for sleep melatonin 58739090235 Shantellaleksandra Domíngueztraci WHIPPLE-C METOPROLOL SUCCINATE ER 25 MG [id number]-HQJ 1 tab BID metoprolol succinate 95168032439 Shantellaleksandra Domíngueztraci WHIPPLE-C REFRESH OPTIVE 1-0.9 % GEL instill 2 drops in both eyes once daily for dry eyes carboxymethylcell ulose-glycern 02353714007 Shantellaleksandra Moraleselisabeth WHIPPLE-C REFRESH OPTIVE 0.5-0.9 % SOLN instill 2 drops in both eyes twice a day for dry eyes carboxymethylcell ulose-glycern 89024105124 Shantell Yanez PA-C SENNA 8.6 MG TABS give 2 tabs as needed for constipation sennosides 39130938710 Shantell Yanez PA-C GABAPENTIN 400 MG CAPS Take 1 capsule by mouth every night 04/08 gabapentin 08004273274 Ryan Oliveira MD GABAPENTIN 400 MG CAPS Take 1 capsule by mouth every night 04/08 gabapentin 46945856562 Alyssia Lucas LPN ZYRTEC ALLERGY 10 MG TABS 04/03 cetirizine 36848901881 Alyssia Lucas LPN VITAMIN E47-PWXCM ACID 500-400 MCG TABS 07/22 vitamin b93-zpcds acid 45828092709 Alyssia Lucas LPN LEVETIRACETAM 500 MG TABS Take 1 tablet by mouth twice a day 07/16 levetiracetam 85958721256 Shantell Yanez PA-C LEVETIRACETAM 500 MG TABS TAKE ONE TABLET BY MOUTH TWICE DAILY 07/16 levetiracetam 22664033258 Esequiel Patel MD GABAPENTIN 100 MG CAPS TAKE ONE CAPSULE BY MOUTH ONE TIME DAILY AT BEDTIME. may increase to 2 capsules at bedtime after 2 weeks if needed 04/03 gabapentin 57943254529 Esequiel Patel MD LEVETIRACETAM 250 MG TABS Take 1 tab by mouth every evening for 1 week. Then increase to 1 tab by mouth twice a day 12/01 levetiracetam 99938415894 Shantell Yanez PA-C LEVETIRACETAM 500 MG TABS Take 1 tablet by mouth twice a day 07/16 levetiracetam 32261669147 Shantell WHIPPLE-Len LEVETIRACETAM 250 MG TABS Take 1 tab by mouth every evening for 1 week. Then increase to 1 tab by mouth twice a day 12/01 levetiracetam 74637525418 Shantell Yanez SUSAN ZYRTEC ALLERGY 10 MG TABS 04/03 cetirizine 01310166245 Shantell Melinda Yanez [place]- RA FISH OIL 1000 MG CAPS 07/22 docosahexaenoic acid-epa 45925816662 Shantell Melinda Yanez [facility] SYSTANE ICAPS AREDS2 TABS 07/22 vit c-vit z-jm-co-lutein-ze ax 38291925768 Shantell Melinda Yanez SUSAN LISINOPRIL 20 MG TABS Take 1 tablet by mouth once a day 03/21 lisinopril 90701270712 Esequiel Patel MD PRIMIDONE 50 MG TABS 1 tablet by mouth twice a day 08/01 primidone 82291786367 Zelda Greene RN WARFARIN SODIUM 3 MG TABS Take 3 tablets (9mg) every Tue, Fri and 2.5 tablets (7.5mg) all other days or as directed. 04/18 warfarin 72455711704 Esequiel Patel MD LORAZEPAM 0.5 MG TABS Take 1 tablet by mouth 06/05 lorazepam 88059923203 Esequiel Patel MD ATORVASTATIN CALCIUM 10 MG TABS Take 1 tablet by mouth every night 03/21 atorvastatin 14827248005 Esequiel Patel MD HYDROCHLOROTHIAZIDE 12.5 MG CAPS Take 1 capsule by mouth once a day 03/21 hydrochlorothiazi de 26492369348 Esequiel Patel MD ELIQUIS 5 MG TABS 07/22 apixaban 72768858082 Esequiel Patel MD WARFARIN SODIUM 3 MG TABS Take 3 tablets (9mg) every Tue, Fri and 2.5 tablets (7.5mg) all other days or as directed. 04/18 WARFARIN SODIUM 89178740274 Esequiel Patel MD HYDROCHLOROTHIAZIDE 12.5 MG CAPS TAKE ONE CAPSULE BY MOUTH ONE TIME DAILY 03/21 HYDROCHLOROTHIAZI DE 65628488038 Esequiel Patel MD ATORVASTATIN CALCIUM 10 MG TABS TAKE ONE TABLET BY MOUTH ONE TIME DAILY AT BEDTIME 03/21 ATORVASTATIN CALCIUM 34937510803 Esqeuiel Patel MD LISINOPRIL 20 MG TABS TAKE ONE TABLET BY MOUTH ONE TIME DAILY 03/21 LISINOPRIL 40641202850 Esequiel Patel MD LORAZEPAM 0.5 MG TABS Take 1 tablet by mouth 1 hour prior to imaging. 06/05 LORAZEPAM 02170003541 Esequiel Patel MD PRIMIDONE 50 MG TABS 1 po bid 08/01 PRIMIDONE 40316112633 Bhupendra Kwan MD PRIMIDONE 50 MG TABS Week #1 take 1 in AM and 2 in PM and then in Week #2 and thereafter take 2 po bid 09/05 PRIMIDONE 38462362367 Bhupendra Kwan MD PRIMIDONE 50 MG TABS Week #1 take 1/2 po qhs, then Week #2 take 1/2 po bid, then Week #3 take 1/2 in AM and 1 in PM, then Week #4 and on take 1 po bid 06/18 PRIMIDONE 50129929948 Bhupendra Kwan MD Medications Administered No information available. Allergies, Adverse Reactions, Alerts Allergy Name Reaction Description Start Date Severity Status Provider NONE Critical No Longer Active Esequiel Patel MD NONE Critical No Longer Active Bhupendra Kwan MD Observed no known allergies at Results Date Name Value Unit Range Flag Description Rx Refill: eRx Request for P RIMIDONE 50MG TAB [facility]_RR [id number]`PRIM IDONE 50MG TAB AMNE`50MG`U2`12 0 Tablet``TAKE 1 TABLET IN THE MORNING AND 2 TABLETS IN THE EVENING FOR WEEK 1,THEN TAKE 2 TABLETS TWICE DAILY AFTER``5`3711`[id number]`Rohan Fowler #[id number]*`[phone]`[id number] 0`` B e-scripts messenger refill request Lab [...] T4 Office Visit: Office Visit f ax DEMENTIA2 Assessment of cognition performed and results reviewed. Total score [MMSE] [id number] Mild Total scor e [MoCA] MMSE SCORE 20 Total scor e [MMSE] MEDS REVIEW Done Documenta tion of current medications (procedure) Plan of Care Type Date Detail Pending order Follow up [facility] Pending order Follow up [facility] Pending order Instructions for Staff Pending order Follow up Pending order CBC [...] Name Date Entry Date ORDERS Follow up ORDERS Instructions for Staff 06/09 [facility]-[id number] Documentation of current medicatio ns ORDERS CBC with Diff/Platelet 10/30 ORDERS Patient Instructions ORDERS Follow up ARIEL [facility] [address]-5 MMSE ORDERS Vitamin B12 ORDERS T4 Free Direct ORDERS TSH ORDERS Methylmalonic Acid Serum (MMA) [facility]-[id number] Documentation of current medicatio ns ORDERS CBC with Diff/Platelet 04/28 ORDERS Follow up with Neurologist or [facility]EL ORDERS Follow up with Neurologist or [facility]EL ORDERS Other Test ORDERS EMG left upper ext 0 CPT-48905 Nerve Conduction 5-6 studies CPT-93269 EMG with NCS (5+ muscles) - 1 limb 03/30 ORDERS Instructions for Staff 01/27 [facility]-[id number] Documentation of current medicatio ns ORDERS Follow up ORDERS Instructions for Staff 10/23 [facility]-[id number] Documentation of current medicatio ns ORDERS Instructions for Staff 10/23 [facility] [address]-0 MMSE ORDERS Follow up ORDERS Follow up ARIEL in clinic or telemedicine ORDERS Levetiracetam (Keppra) 07/22 [facility]-[id number] Documentation of current medicatio ns ORDERS Follow up in clinic or telemedicine 04/08 [id number] MRI-Brain W/O ORDERS Physical Therapy ORDERS Follow up ORDERS Levetiracetam (Keppra) 04/03 ORDERS Follow up [facility]-[id number] Documentation of current medicatio ns ORDERS Follow up ARIEL ORDERS Follow up after testing 2020 ORDERS EEG Ambulatory CPT-17440 EEG Setup CPT-76116 Amb EEG 12hrs 1min-26hrs () CPT-32076 Amb EEG 12hrs 1min-26hrs ([facility]) 6 ORDERS Physical Therapy ORDERS EEG Video ORDERS We will contact you with test results 03/18/06 CPT-65735 EEG Setup CPT-86443 Video EEG 2-12hrs () 11/14 CPT-31492 Video EEG 2-12hrs ([facility]) 202 03/18/06 [facility]-[id number] Documentation of current medicatio ns ORDERS Sleep Study - APNA 7 ORDERS We will contact you with test results 202 03/15/29 [facility]-[id number] Documentation of current medicatio ns Vital Signs Date Name Value Unit Description Height 62.99 [in_us] height E&M Heart Rate 77 /min pulse rate BMI (Body Mass Index) 33.26 kg/m2 Bod y Mass Index (Ratio) Weight Measured 85 kg weight in kilograms E&M Weight Measured 187 [lb_av] weight E& M Weight Measured 187 [lb_av] weight E& M Body Temperature 36.78 [degF] temperat ure E&M BP Diastolic 80 mm[Hg] blood pressu re, diastolic BP Systolic 128 mm[Hg] blood pressur e, systolic Respiratory Rate 14 /min respirat ory rate E&M Immunizations No information available. Advance Directives No information available.
--- OUTSIDE RECORDS SUMMARY | 2024-06-25 08:44 | XMS_ITS ---
Author Organization [facility] Address [address] [place] [address] , [address] [place] [address] Phone Care Team Providers Care Microsoft Architect Name Role Phone Ryan Oliveira MD Conditions or Problems Problem Name Problem Code Onset Date Status Entry Date Provider Comment Standard Description Annotate Carpal tunnel syndrome, left 45099417 (SNOMED CT) Active Ryan Oliveira MD Carpal tunnel syndrome Medications Medication Instructions Start Date Stop Date Generic Name [facility] Provider MEMANTINE HCL 10 MG TABS 1/2 tablet by mouth as directed : half tab or 5 mg/night for 1 week, then 5 mg 2 times/day for 1 week, then increase by 5 mg/day every 1 wk until 10 mg 2 times/day May decrease to previous lower doze if have bad nausea or GI side effects until next visit's discussion. memantine 10878085844 Ryan Oliveira MD FUROSEMIDE 20 MG TABS furosemide 24805558104 Ryan Oliveira MD Imodium A-D 2 mg tablet 1 tab every 4 hours as needed for loose stools loperamide 78491847901 Ryan Oliveira MD GABAPENTIN 400 MG CAPS 400 mg or 4 caps nightly and 2 cap in am; may increase am doze by 100 mg every 4 days until Lt hand pain under controlled or until 400 mg 2x per day gabapentin 72765702296 Ryan Oliveira MD LISINOPRIL 20 MG TABS Take 1 tablet by mouth once a day lisinopril 13051800095 Ryan Oliveira MD GABAPENTIN 400 MG CAPS 4 caps or 400 mg 2x per day gabapentin 63105271312 Ryan Oliveira MD LOSARTAN POTASSIUM 25 MG TABS losartan 96254993155 Ryan Oliveira MD TORSEMIDE 20 MG TABS torsemide 01567877586 Ryan Oliveira MD AMIODARONE HCL 400 MG TABS amiodarone 32065226845 Ryan Oliveira MD ACETAMINOPHEN 325 MG TABS acetaminophen 21263770258 Ryan Oliveira MD Medications Administered No information available. Allergies, Adverse Reactions, Alerts No information available. Results Date Name Value Unit Range Flag Description Office Visit: Office Visit f ax MEDS REVIEW Done Documenta tion of current medications (procedure) Plan of Care Type Date Detail Pending order Follow up [facility] Pending order Follow up [facility] Pending order Instructions for Staff Procedures Code Procedure Name Date Entry Date ORDERS Instructions for Staff 06/09 [facility]-[id number] Documentation of current medicatio ns Vital Signs Date Name Value Unit Description Height 62.99 [in_us] height E&M Immunizations No information available. Advance Directives No information available.
--- NOTE | 2024-06-25 08:58 | ED_ITS ---
HPI - General Adult General Chief complaint: GI Bleed Stated complaint: blood in stool Time Seen by Provider: 06/25/24 08:57 History of Present Illness HPI narrative: Patient resident at [facility] . Reports passing of red and red/brown liquid with stool as well as just liquid hematochezia. Does not have any pain. Is on Eliquis. 89-year-old man presenting to the emergency department Has been struggling with constipation and says that he has transformed firmer bricks now into softer bricks with the aid of prune juice. Otherwise feeling generally well. Might have felt a little bit light headed briefly. Shortness of breath. No abdominal pain. Anticoagulated with Eliquis with a history of atrial fibrillation, aortic stenosis and status post TAVR. History of left bundle-branch block. History of pacemaker Questioning again it appears that this bleeding has been going off and on over the last 3 days or so. Related Data Home Medications ?Medication ?Instructions ?Recorded ?Confirmed acetaminophen 325 mg tablet 650 mg PO Q4H PRN mild pain 03/08/23 04/30/24 apixaban 5 mg tablet (Eliquis) 5 mg PO BID 03/08/23 04/30/24 aspirin 81 mg tablet,delayed 81 mg PO DAILY 03/08/23 04/30/24 release atorvastatin 10 mg tablet 10 mg PO DAILY 03/08/23 04/30/24 donepezil 10 mg tablet 10 mg PO QPM 03/08/23 04/30/24 gabapentin 100 mg capsule 400 mg PO BID 03/08/23 04/30/24 levetiracetam 500 mg tablet 500 mg PO BID 03/08/23 04/30/24 loperamide 2 mg capsule 2 mg PO Q4H PRN diarrhea 03/08/23 04/30/24 melatonin 3 mg tablet 3 mg PO HS PRN 03/08/23 04/30/24 metoprolol succinate 25 mg 25 mg PO BID 03/08/23 04/30/24 tablet,extended release 24 hr peg 400-propylene glycol 0.4 %-0.3 1 drp ophthalmic (eye) QPM 03/08/23 04/30/24 % eye gel drops (Systane Gel) sennosides 8.6 mg tablet (senna) 17.2 mg PO QAM 03/08/23 04/30/24 bisacodyl 10 mg rectal suppository 10 mg OK DAILY PRN 10/12/23 04/30/24 (Dulcolax (bisacodyl)) carbamide peroxide 6.5 % ear drops 4 drp otic (ear) Q12H PRN 10/12/23 04/30/24 (Ear Wax Removal Drops) carboxymethylcellulose 1 2 drp ophthalmic (eye) DAILY 10/12/23 04/30/24 %-glycerin 0.9 % eye gel drops (Refresh Optive) cyanocobalamin (vitamin B-12) 1,000 mcg PO DAILY 10/12/23 04/30/24 1,000 mcg tablet furosemide 20 mg tablet 20 mg PO DAILY 10/12/23 04/30/24 amiodarone 400 mg tablet 400 mg PO DAILY 04/30/24 04/30/24 loratadine 10 mg disintegrating 10 mg PO DAILY 04/30/24 04/30/24 tablet (Claritin RediTabs) losartan 25 mg tablet 25 mg PO DAILY 04/30/24 04/30/24 torsemide 20 mg tablet 40 mg PO DAILY 04/30/24 04/30/24 Allergies Allergy/AdvReac Type Severity Reaction Status Date / Time fexofenadine Allergy Unknown Verified 10/12/23 15:19 Iodinated Contrast Media Allergy Unknown Verified 10/12/23 15:19 pseudoephedrine Allergy Verified 10/12/23 15:19 Review of Systems Status of ROS: Reports: 6 or more systems reviewed and unremarkable except as noted in History and below [facility] Medical History Macular degeneration ?H35.30 - Unspecified macular degeneration (ICD-10) Hyperlipidemia ?E78.5 - Hyperlipidemia, unspecified (ICD-10) Essential hypertension ?I10 - Essential (primary) hypertension (ICD-10) Chronic constipation ?K59.09 - Other constipation (ICD-10) BPH (benign prostatic hyperplasia) ?N40.0 - Benign prostatic hyperplasia without lower urinary tract symptoms (ICD-10) Cognitive impairment ?R41.89 - Other symptoms and signs involving cognitive functions and awareness (ICD-10) Seizure disorder ?G40.909 - Epilepsy, unspecified, not intractable, without status epilepticus (ICD-10) Persistent atrial fibrillation ?I48.19 - Other persistent atrial fibrillation (ICD-10) Pacemaker ?Z95.0 - Presence of cardiac pacemaker (ICD-10) LBBB (left bundle branch block) ?I44.7 - Left bundle-branch block, unspecified (ICD-10) Aortic stenosis ?I35.0 - Nonrheumatic aortic (valve) stenosis (ICD-10) POLST (Physician Orders for Life-Sustaining Treatment) ?Z78.9 - Other specified health status (ICD-10) Surgical History History of cholecystectomy ?Z90.49 - Acquired absence of other specified parts of digestive tract (ICD- 10) Hx of appendectomy ?Z90.49 - Acquired absence of other specified parts of digestive tract (ICD- 10) S/P cataract extraction ?Z98.49 - Cataract extraction status, unspecified eye (ICD-10) S/P placement of cardiac pacemaker ?Z95.0 - Presence of cardiac pacemaker (ICD-10) S/P TAVR (transcatheter aortic valve replacement) ?Z95.2 - Presence of prosthetic heart valve (ICD-10) Social History Narrative: [facility], . Five adult children, daughter Edna is primary contact and POA. No current smoking, no concerning alcohol use. Full code. What is your current living situation?: I presently have a place to live Problems where you live: no known problems Problems where you live details: n/a In the past 12 months, utilities in danger of being shut off: no In past 12 months, lack of transportation kept you from medical appts, meetings, work, or getting things needed for daily living: no In the past 12 mos, have been you worried that your food would run out before y ou had money to buy more?: never true In the past 12 mos, the food you bought just didn't last and you didn't have money to buy more?: never true Smoking Status: Former smoker Do you use any of these nicotine containing products: None Second hand tobacco smoke exposure: No How often do you have a drink containing alcohol: never How often do you have six or more drinks on one occasion: Never AUDIT-C Alcohol total score: 0 Non-prescribed substance use: denies use How often does anyone, including family, friends and others, physically hurt you : never How often does anyone, including family, friends and others, insult or talk down to you: never How often does anyone, including family, friends and others, threaten you with harm: never How often does anyone, including family, friends and others, scream or curse at you: never service: Yes Exam Narrative: Exam Narrative: Freshly clotted and blood staining in the perianal area. Does have general noninflamed hemorrhoidal tissues. Pleasant. NAD. Breathing easily. Intermittently demonstrating some difficulty with recall. Heart in regular rhythm. Not tachycardic. Distant. Abdomen is overweight soft and nontender. Anoscopy exam with dark blood diffusely. No bright red blood/active bleeding noted at this time. Const: Vital Signs, click to edit/add: Vital Signs - 24 hr 06/25/24 08:49 06/25/24 08:51 06/25/24 09:01 Temperature 97.7 F Pulse Rate 76 70 Pulse Rate [Pulse Oximeter] 83 Respiratory Rate 18 Blood Pressure 128/75 125/66 Blood Pressure [Ri ght Upper Arm] 135/84 Pulse Oximetry 94 94 93 Oxygen Delivery Me thod Room Air 06/25/24 09:34 06/25/24 09:45 06/25/24 12:00 Temperature Pulse Rate 72 70 70 Pulse Rate [Pulse Oximeter] Respiratory Rate Blood Pressure 116/75 Blood Pressure [Ri ght Upper Arm] Pulse Oximetry 94 95 93 Oxygen Delivery Me thod 06/25/24 12:30 06/25/24 13:00 06/25/24 13:02 Temperature Pulse Rate 73 70 70 Pulse Rate [Pulse Oximeter] Respiratory Rate 16 Blood Pressure 114/78 Blood Pressure [Ri ght Upper Arm] Pulse Oximetry 91 95 92 Oxygen Delivery Me thod Documenting provider has reviewed patient's vital signs: yes Course Vital Signs Vital signs: Initial Vital Signs Temperature 97.7 F 06/25/24 08:49 Temperature Source Temporal Artery Scan 06/25/24 08:49 Pulse Rate 83 06/25/24 08:49 Respiratory Rate 18 06/25/24 08:49 Blood Pressure 135/84 06/25/24 08:49 Blood Pressure Mean 101 06/25/24 08:49 Pulse Oximetry 94 06/25/24 08:49 Oxygen Delivery Method Room Air 06/25/24 08:49 Vital Signs Temperature 97.7 F 06/25/24 08:49 Pulse Rate 83 06/25/24 08:49 Respiratory Rate 18 06/25/24 08:49 Blood Pressure 135/84 06/25/24 08:49 Pulse Oximetry 94 06/25/24 08:49 Oxygen Delivery Method Room Air 06/25/24 08:49 Temperature 97.7 F 06/25/24 08:49 Pulse Rate 70 06/25/24 13:02 Respiratory Rate 16 06/25/24 13:02 Blood Pressure 114/78 06/25/24 13:02 Pulse Oximetry 92 06/25/24 13:02 Oxygen Delivery Method Room Air 06/25/24 08:49 Medications Administered Medications: Discontinued Medications Generic Name Dose Route Start Last Admin Trade Name Freq PRN Reason Stop Dose Admin Sodium Chloride 1,000 mls @ 1,000 mls/hr 06/25/24 10:11 06/25/24 11:30 0.9 % Sodium Chloride 1000 Ml IV 06/25/24 11:10 Infused .Q1H ONE Infusion Medical Decision Making MDM Narrative Medical decision making narrative: Anticipating monitoring with serial hemoglobins. I suspect hemorrhoidal bleeding here. Certainly could be diverticular. Does have a history of acute kidney injury. Creatinine is a little elevated from last checked along with BUN. Will be giving a L of normal saline. Mr. Thomas had maintained that he was never going to get a colonoscopy per conversation with him and family. Sounds as though there is a not insignificant colon cancer risk. Per conversation today he would be now interested in further evaluation like this. I discussed this case with our hospitalist as we anticipate coordination of colonoscopy in management of anticoagulation. We will recommend holding Eliquis until close follow-up as I have also discussed this case with his medical care team who would be seeing him early next week. He is not in atrial fibrillation at this time; in paced rhythm. No further events nor increase in bleeding during time in the emergency d epartment. Hemoglobins are stable. It sounds as though your bowels are little difficult to manage where you can kind of go from rather hard to rather loose. I talked your care team and they anticipate seeing you on Friday to discuss further cares including likely colonoscopy. Do not take your Eliquis until that visit. In the meantime, you can continue with your prune juice. You might consider 1-2 doses of MiraLax daily or the flaxseed that was mentioned; these can of course be purchased [id number]. Return for marked increase in bleeding, worsening associated lightheadedness, increasing persistent abdominal pain. Medical Records Medical records reviewed: Yes I reviewed the patient's medical records Lab Data Lab results reviewed: Yes I reviewed the patient's lab results Labs: Lab Results 06/25/24 06/25/24 Range/Units 09:23 12:29 WBC 4.29 L (4.50-11.00) K/uL RBC 3.67 L (4.30-5.90) m/uL Hgb 11.8 L 12.0 L (13.5-17.5) gm/dL Hct 35.6 L (37.0-53.0) % MCV 97 (80-100) fL MCH 32 (26-34) pg MCHC 33 (32-36) gm/dL RDW Coeff of Edward 12.9 (11.5-15.5) % Plt Count 138 L (140-440) K/uL Neut % (Auto) 57.3 (42.0-72.0) % Lymph % (Auto) 21.7 (20-44) % [place] % (Auto) 10.7 (0.0-11.0) % Eos % (Auto) 8.4 H (0.0-7.0) % Baso % (Auto) 1.4 (0.0-3.0) % Neut # (Auto) 2.50 (1.7-7.0) K/uL Lymph # (Auto) 0.90 (0.90-2.90) K/uL [place] # (Auto) 0.50 (0.00-0.90) K/UL Eos # (Auto) 0.40 (0.00-0.50) K/uL Baso # (Auto) 0.10 (0.00-0.30) K/uL Abs Immat Gran (auto) 0.00 (0.00-0.30) K/uL Imm/Tot Granulo (auto) 0.5 % INR 1.38 H (0.91-1.10) APTT 33 (23-33) Seconds Sodium 138 (135-149) mmol/L Potassium 4.0 (3.6-5.1) mmol/L Chloride 101 (96-114) mmol/L Carbon Dioxide 30 (20-32) mmol/L Anion Gap 7 (7-15) mEq/L BUN 32 H (7-30) mg/dL Creatinine 1.9 H (0.5-1.5) mg/dL Estimated Creat Clear 22.93 Estimated GFR 33 ml/min Glucose 114 (60-115) mg/dL Calcium 8.7 (8.4-10.6) mg/dL Total Bilirubin 0.8 (0.1-1.5) mg/dL Direct Bilirubin 0.2 (0.0-0.5) mg/dL AST 26 (12-35) U/L ALT 18 (4-50) U/L Alkaline Phosphatase 78 (40-150) U/L Total Protein 6.4 (6.0-8.3) g/dL Albumin 3.9 (3.3-5.0) g/dL ECG Data Attestation: I personally reviewed and interpreted this ECG as follows: (Paced rhythm. Left bundle-branch block. Rate of 75. Similar to prior) Discharge Plan Discharge Clinical Impression: Painless rectal bleeding, Anticoagulated, Constipation Patient Disposition: Home w/ Parent or Adult Condition: Stable Additional Instructions: It sounds as though your bowels are little difficult to manage where you can kind of go from rather hard to rather loose. I talked your care team and they anticipate seeing you on Friday to discuss further cares including likely colonoscopy. Do not take your Eliquis until that visit. In the meantime, you can continue with your prune juice. You might consider 1-2 doses of MiraLax daily or the flaxseed that was mentioned; these can of course be purchased [id number]. Return for marked increase in bleeding, worsening associated lightheadedness, increasing persistent abdominal pain. Prescriptions: No Action bisacodyl [Dulcolax (bisacodyl)] 10 mg suppository 10 mg OK DAILY PRN furosemide 20 mg tablet 20 mg PO DAILY Patient Comments: [NO ORIGINAL SIG] Ear Wax Removal Drops 6.5 % drops 4 drp otic (ear) Q12H PRN Patient Comments: INSTILL 4 DROPS INTO EACH EAR NIGHTLY FOR 5 NIGHTS THEN FLUSH Refresh Optive 1-0.9 % drops,gel 2 drp ophthalmic (eye) DAILY Patient Comments: INSTILL 2 DROPS INTO IN BOTH EYES DAILY FOR DRY EYES cyanocobalamin (vitamin B-12) 1,000 mcg tablet 1,000 mcg PO DAILY Patient Comments: [NO ORIGINAL SIG] acetaminophen 325 mg tablet 650 mg PO Q4H PRN (Reason: mild pain) loperamide 2 mg capsule 2 mg PO Q4H PRN (Reason: diarrhea) atorvastatin 10 mg tablet 10 mg PO DAILY levetiracetam 500 mg tablet 500 mg PO BID donepezil 10 mg tablet 10 mg PO QPM gabapentin 100 mg capsule 400 mg PO BID Eliquis 5 mg tablet 5 mg PO BID melatonin 3 mg tablet 3 mg PO HS PRN sennosides [senna] 8.6 mg tablet 17.2 mg PO QAM metoprolol succinate 25 mg tablet extended release 24 hr 25 mg PO BID Systane Gel 0.4-0.3 % drops,gel 1 drp ophthalmic (eye) QPM aspirin 81 mg tablet,delayed release (DR/EC) 81 mg PO DAILY torsemide 20 mg tablet 40 mg PO DAILY loratadine [Claritin RediTabs] 10 mg tablet,disintegrating 10 mg PO DAILY losartan 25 mg tablet 25 mg PO DAILY amiodarone 400 mg tablet 400 mg PO DAILY Follow Up/Referrals: To Mata MD [Primary Care Provider] - Stand Alone Forms: [facility] Info Instructions
[2024-06-25 09:30] LABS: Basophils Percent Auto 1.4 % (0.0-3.0); Eosinophils Percent Auto 8.4 % (0.0-7.0); Hematocrit 35.6 % (37.0-53.0); Hemoglobin* 11.8 gm/dL (13.5-17.5); Immature Granulocytes Pct Auto 0.5 %; Lymphocytes Percent Auto 21.7 % (20-44); Mean Corpuscular HGB Conc 33 gm/dL (32-36); Mean Corpuscular Hemoglobin 32 pg (26-34); Mean Corpuscular Volume 97 fL (80-100); Monocytes Percent Auto 10.7 % (0.0-11.0); Neutrophils Percent Auto 57.3 % (42.0-72.0); Platelet Count* 138 K/uL (140-440); RDW Coefficient of Variation % 12.9 % (11.5-15.5); Red Blood Count 3.67 m/uL (4.30-5.90); White Blood Count* 4.29 K/uL (4.50-11.00)
[2024-06-25 09:34] LABS: Slide Review Reflex No
--- OUTSIDE RECORDS SUMMARY | 2024-06-25 09:34 | XMS_ITS ---
Author Organization [facility] Address [address] [place] [address] , [address] [place] [address] Phone Care Team Providers Care Replenishment Merchandising Associate Name Role Phone Ryan Oliveira MD Conditions or Problems Problem Name Problem Code Onset Date Status Entry Date Provider Comment Standard Description Annotate Carpal tunnel syndrome, left [id number] (SNOMED CT) Active Ryan Oliveira MD Carpal tunnel syndrome Medications Medication Instructions Start Date Stop Date Generic Name [facility] Provider MEMANTINE HCL 10 MG TABS 1/2 tablet by mouth as directed : half tab or 5 mg/night for 1 week, then 5 mg 2 times/day for 1 week, then increase by 5 mg/day every 1 wk until 10 mg 2 times/day May decrease to previous lower doze if have bad nausea or GI side effects until next visit's discussion. memantine [id number] Ryan Oliveira MD FUROSEMIDE 20 MG TABS furosemide [id number] Ryan Oliveira MD Imodium A-D 2 mg tablet 1 tab every 4 hours as needed for loose stools loperamide [id number] Ryan Oliveira MD GABAPENTIN 400 MG CAPS 400 mg or 4 caps nightly and 2 cap in am; may increase am doze by 100 mg every 4 days until Lt hand pain under controlled or until 400 mg 2x per day gabapentin [id number] Ryan Oliveira MD LISINOPRIL 20 MG TABS Take 1 tablet by mouth once a day lisinopril [id number] Ryan Oliveira MD GABAPENTIN 400 MG CAPS 4 caps or 400 mg 2x per day gabapentin [id number] Ryan Oliveira MD LOSARTAN POTASSIUM 25 MG TABS losartan [id number] Ryan Oliveira MD TORSEMIDE 20 MG TABS torsemide [id number] Ryan Oliveira MD AMIODARONE HCL 400 MG TABS amiodarone [id number] Ryan Oliveira MD ACETAMINOPHEN 325 MG TABS acetaminophen [id number] Ryan Oliveira MD Medications Administered No information [...] Entry Date ORDERS Instructions for Staff 06/09 [facility]-[id number] Documentation of current medicatio ns Vital Signs Date Name Value Unit Description Height 62.99 [in_us] height E&M Immunizations No information available. Advance Directives No information available.
--- OUTSIDE RECORDS SUMMARY | 2024-06-25 09:34 | XMS_ITS | Clinical Summary ---
Author Organization [facility] Address [address] , [address] [place] [address] Phone Care Team Providers Care Hat Renovator Name Role Phone Marielos Walters Unavailable Unavailable Conditions or Problems Problem Name Problem Code Onset Date Status Entry Date Provider Comment Standard Description Annotate Carpal tunnel syndrome, left [id number] (SNOMED CT) 06/09 Active 06/09 Ryan Oliveira MD Carpal tunnel syndrome Neutropenia 284466645 (SNOMED CT) 04/28 Active 04/28 Ryan Oliveira MD Neutropenia Abnormal labs - low sbc/lymph 014951124 (SNOMED CT) 03/29 Active 03/29 Ryan Oliveira MD Laboratory test result abnormal Memory loss 52179781 (SNOMED CT) 07/22 Resolved 07/22 Ryan Oliveira MD Amnesia Hand weakness, left 187595660 (SNOMED CT) 03/29 Active 03/29 Ryan Oliveira MD Weakness of hand Hand pain, left with new paresthesia 38753202 (SNOMED CT) 03/29 Active 03/29 Ryan Oliveira MD Hand pain Dementia 51322374 (SNOMED CT) 10/23 Active 10/23 Ryan Oliveira MD Dementia Memory loss 26964105 (SNOMED CT) 07/22 Removed 07/22 Shantell Yanez PA-C Amnesia Resting tremor 33723257 (SNOMED CT) 04/08 Active 04/09 Ryan Oliveira MD Resting tremor HEADACHE 097732262 (SNOMED CT) 10/30 Resolved 10/30 Ryan Oliveira MD Elevated level of transaminase and lactic acid dehydrogenase Sleep apnea 19640961 (SNOMED CT) 07/24 Resolved 07/24 Ryan Oliveira MD Sleep apnea Balance problem 651625006 (SNOMED CT) 04/08 Active 04/08 Ryan Oliveira MD Impairment of balance Epilepsy 49338408 (SNOMED CT) 12/01 Active 12/01 Shantell Yanez PA-C Epilepsy Frequent falls 275562369 (SNOMED CT) 11/22 Active 11/22 Esequiel Patel MD Recurrent falls Confusion 48441670 (SNOMED CT) 11/10 Active 11/10 Esequiel Patel MD Clouded consciousness HEADACHE 698191772 (SNOMED CT) 10/30 Removed 10/30 Chanel Brandon Elevated level of transaminase and lactic acid dehydrogenase Sleep apnea 28284513 (SNOMED CT) 07/24 Removed 07/24 Esequiel Patel MD Sleep apnea ESSENTIAL TREMOR 013257004 (SNOMED CT) 06/18 Active 06/18 Bhupendra Kwan MD Essential tremor DIPLOPIA 67152667 (SNOMED CT) 06/18 Active 06/18 Bhupendra Kwna MD Diplopia HEADACHE 03899233 (SNOMED CT) 10/30 Inactive 10/30 Bhupendra Kwan MD Headache Medications Medication Instructions Start Date Stop Date Generic Name [facility] Provider GABAPENTIN 400 MG CAPS 4 caps or 400 mg 2x per day 06/09 gabapentin [id number] Ryan Oliveira MD GABAPENTIN 400 MG CAPS Take 1 capsule by mouth twice a day 06/09 gabapentin 72276973173 Ryan Oliveira MD MEMANTINE HCL 10 MG TABS 1/2 tablet by mouth as directed : half tab or 5 mg/night for 1 week, then 5 mg 2 times/day for 1 week, then increase by 5 mg/day every 1 wk until 10 mg 2 times/day May decrease to previous lower doze if have bad nausea or GI side effects until next visit's discussion. 06/09 memantine 77572872209 Ryan Oliveira MD FUROSEMIDE 20 MG TABS 06/09 furosemide 30724349543 Ryan Oliveira MD Imodium A-D 2 mg tablet 1 tab every 4 hours as needed for loose stools 06/09 loperamide 27855083841 Ryan Oliveira MD GABAPENTIN 400 MG CAPS 400 mg or 4 caps nightly and 2 cap in am; may increase am doze by 100 mg every 4 days until Lt hand pain under controlled or until 400 mg 2x per day 03/30 gabapentin 24441386901 Ryan Oliveira MD LISINOPRIL 20 MG TABS Take 1 tablet by mouth once a day 03/21 lisinopril 12382870369 Ryan Oliveira MD GABAPENTIN 400 MG CAPS 4 caps or 400 mg 2x per day 06/09 gabapentin 23595604921 Ryan Oliveira MD LOSARTAN POTASSIUM 25 MG TABS losartan 02764002152 Ryan Oliveira MD TORSEMIDE 20 MG TABS torsemide 049391422 01 Ryan Oliveira MD AMIODARONE HCL 400 MG TABS amiodarone 24770953865 Ryan Oliveira MD ACETAMINOPHEN 325 MG TABS acetaminophen 60288124553 Ryan Reveles MD ASPIRIN 325 MG TABS 81 mg aspirin 92038992737 Ryan Oliveira MD DULCOLAX 10 MG SUPP bisacodyl 0229989808 5 Ryan Oliveira MD FUROSEMIDE 20 MG TABS 06/09 furosemide 92154879319 Ryan Oliveira MD ALUM & MAG HYDROXIDE-SIMETH 5711-0328-585 MG/30ML SUSP alum-mag hydroxide-simeth 20271895454 Ryan Oliveira MD MILK OF MAGNESIA 2400 MG/30ML SUSP magnesium hydroxide 93054589641 Ryan Oliveira MD GABAPENTIN 400 MG CAPS 400 mg or 4 caps nightly 03/29 gabapentin 84321323798 Ryan Oliveira MD GABAPENTIN 400 MG CAPS 400 mg or 4 caps nightly and 2 cap in am; may increase am doze by 100 mg every 4 days until Lt hand pain under controlled or until 400 mg 2x per day 03/30 gabapentin 85768269660 Ryan Oliveira MD GABAPENTIN 400 MG CAPS 1 cap once daily 01/27 gabapentin 67433876408 Ryan Oliveira MD DONEPEZIL HCL 10 MG TABS 5 mg/night by mouth for 4 weeks, then 10 mg/night. May decrease to 5 mg/night if have bad nausea or significant side effects until next visit's discussion. 10/23 donepezil 74884880119 Ryan Oliveira MD GABAPENTIN 100 MG CAPS 4 cap po once daily 01/27 gabapentin 06632940808 Ryan Oliveira MD GABAPENTIN 400 MG CAPS 400 mg or 4 caps nightly 03/29 gabapentin 10235328536 Ryan Oliveira MD GABAPENTIN 400 MG CAPS 1 cap once nightly 03/29 gabapentin 77099456354 Ryan Oliveira MD DONEPEZIL HCL 10 MG TABS 10 mg/night. May decrease to 5 mg/night if have bad nausea or significant side effects until next visit's discussion. 03/29 donepezil 17529932667 Ryan Oliveira MD LEVETIRACETAM 500 MG TABS TAKE ONE TABLET BY MOUTH TWICE DAILY 07/16 levetiracetam 83617062964 Ryan Oliveira MD DONEPEZIL HCL 10 MG TABS 5 mg/night by mouth for 4 weeks, then 10 mg/night. May decrease to 5 mg/night if have bad nausea or significant side effects until next visit's discussion. 10/23 donepezil 65311511753 Ryan Oliveira MD SYSTANE ICAPS AREDS2 TABS 1 cap BID 10/23 vit c-vit j-el-tj-lutein-ze ax 53780683897 Ryan Oliveira MD PRESERVISION AREDS CAPS vitamins a,c,d-mzsg-tumoxg 68339733045 Ryan Oliveira MD [id number] 1 MG CHEW meco balamin (vitamin b12) 84471569814 Ryan Oliveira MD RA FISH OIL 1000 MG CAPS 07/22 docosahexaenoic acid-epa 48285284187 Shantell Yanez SOLE-C VITAMIN C45-CVMTI ACID 500-400 MCG TABS 07/22 vitamin n96-yzpnl acid 37262411172 Shantell Domíngueztraci WHIPPLE-C ELIQUIS 5 MG TABS 1 tab BID apixaban 17063836404 Shantell Yanez SOLE-C SYSTANE ICAPS AREDS2 TABS 1 cap BID 10/23 vit c-vit e-qr-rw-lutein-ze ax 47307549006 Shantell Yanez SOLE-C VITAMIN B-12 1000 MCG TABS 1 tab daily cyanocobalamin (vitamin b-12) 02502196604 Shantell Domíngueztraci WHIPPLE-C GABAPENTIN 100 MG CAPS 4 cap po once daily 01/27 gabapentin 43929033752 Shantell Yanez SOLE-C GABAPENTIN 400 MG CAPS 1 cap once daily 01/27 gabapentin 28871568029 Shantell Yanez SOLE-C Imodium A-D 2 mg tablet 1 tab once daily for loose stools loperamide 89062417847 Shantell Domínguezil PA-C Imodium A-D 2 mg tablet 1 tab every 4 hours as needed for loose stools 06/09 loperamide 38263651078 Shantell Yanez SOLE-C MELATONIN 3 MG TABS 1 tab as needed for sleep melatonin 45938609459 Shantellaleksandra Domíngueztraci WHIPPLE-C METOPROLOL SUCCINATE ER 25 MG [id number] 1 tab BID metoprolol succinate 66589330738 Shantellaleksandra Domíngueztraci WHIPPLE-C REFRESH OPTIVE 1-0.9 % GEL instill 2 drops in both eyes once daily for dry eyes carboxymethylcell ulose-glycern 31160082648 Shantellaleksandra Moraleselisabeth WHIPPLE-C REFRESH OPTIVE 0.5-0.9 % SOLN instill 2 drops in both eyes twice a day for dry eyes carboxymethylcell ulose-glycern 81927378465 Shantell Yanez PA-C SENNA 8.6 MG TABS give 2 tabs as needed for constipation sennosides 08749618289 Shantell Yanez PA-C GABAPENTIN 400 MG CAPS Take 1 capsule by mouth every night 04/08 gabapentin 09998732260 Ryan Oliveira MD GABAPENTIN 400 MG CAPS Take 1 capsule by mouth every night 04/08 gabapentin 44142835717 Alyssia Lucas LPN ZYRTEC ALLERGY 10 MG TABS 04/03 cetirizine 69855912682 Alyssia Lucas LPN VITAMIN V70-TZWHS ACID 500-400 MCG TABS 07/22 vitamin g30-taacq acid 73070719134 Alyssia Lucas LPN LEVETIRACETAM 500 MG TABS Take 1 tablet by mouth twice a day 07/16 levetiracetam 71789472460 Shantell Yanez PA-C LEVETIRACETAM 500 MG TABS TAKE ONE TABLET BY MOUTH TWICE DAILY 07/16 levetiracetam 50579683052 Esequiel Patel MD GABAPENTIN 100 MG CAPS TAKE ONE CAPSULE BY MOUTH ONE TIME DAILY AT BEDTIME. may increase to 2 capsules at bedtime after 2 weeks if needed 04/03 gabapentin 32017241812 Esequiel Patel MD LEVETIRACETAM 250 MG TABS Take 1 tab by mouth every evening for 1 week. Then increase to 1 tab by mouth twice a day 12/01 levetiracetam 19700570106 Shantell Yanez PA-C LEVETIRACETAM 500 MG TABS Take 1 tablet by mouth twice a day 07/16 levetiracetam 25142033871 Shantell WHIPPLE-Len LEVETIRACETAM 250 MG TABS Take 1 tab by mouth every evening for 1 week. Then increase to 1 tab by mouth twice a day 12/01 levetiracetam 06523455741 Shantell Yanez SUSAN ZYRTEC ALLERGY 10 MG TABS 04/03 cetirizine 51343353954 Shantell Melinda Yanez [facility]- RA FISH OIL 1000 MG CAPS 07/22 docosahexaenoic acid-epa 33910400233 Shantell Melinda Yanez [facility] SYSTANE ICAPS AREDS2 TABS 07/22 vit c-vit h-mx-ps-lutein-ze ax 65633416333 Shantell Melinda Yanez SUSAN LISINOPRIL 20 MG TABS Take 1 tablet by mouth once a day 03/21 lisinopril 84166586679 Esequiel Patel MD PRIMIDONE 50 MG TABS 1 tablet by mouth twice a day 08/01 primidone 10458846463 Zelda Greene RN WARFARIN SODIUM 3 MG TABS Take 3 tablets (9mg) every Tue, Fri and 2.5 tablets (7.5mg) all other days or as directed. 04/18 warfarin 01184586145 Esequiel Patel MD LORAZEPAM 0.5 MG TABS Take 1 tablet by mouth 06/05 lorazepam 53722565142 Esequiel Patel MD ATORVASTATIN CALCIUM 10 MG TABS Take 1 tablet by mouth every night 03/21 atorvastatin 15785088844 Esequiel Patel MD HYDROCHLOROTHIAZIDE 12.5 MG CAPS Take 1 capsule by mouth once a day 03/21 hydrochlorothiazi de 12128150816 Esequiel Patel MD ELIQUIS 5 MG TABS 07/22 apixaban 33711415968 Esequiel Patel MD WARFARIN SODIUM 3 MG TABS Take 3 tablets (9mg) every Tue, Fri and 2.5 tablets (7.5mg) all other days or as directed. 04/18 WARFARIN SODIUM 42478707047 Esequiel Patel MD HYDROCHLOROTHIAZIDE 12.5 MG CAPS TAKE ONE CAPSULE BY MOUTH ONE TIME DAILY 03/21 HYDROCHLOROTHIAZI DE 77793390565 Esequiel Patel MD ATORVASTATIN CALCIUM 10 MG TABS TAKE ONE TABLET BY MOUTH ONE TIME DAILY AT BEDTIME 03/21 ATORVASTATIN CALCIUM 59084536479 Esequiel Patel MD LISINOPRIL 20 MG TABS TAKE ONE TABLET BY MOUTH ONE TIME DAILY 03/21 LISINOPRIL 89416619496 Esequiel Patel MD LORAZEPAM 0.5 MG TABS Take 1 tablet by mouth 1 hour prior to imaging. 06/05 LORAZEPAM 01515772026 Esequiel Patel MD PRIMIDONE 50 MG TABS 1 po bid 08/01 PRIMIDONE 88363805511 Bhupendra Kwan MD PRIMIDONE 50 MG TABS Week #1 take 1 in AM and 2 in PM and then in Week #2 and thereafter take 2 po bid 09/05 PRIMIDONE 17746678557 Bhupendra Kwan MD PRIMIDONE 50 MG TABS Week #1 take 1/2 po qhs, then Week #2 take 1/2 po bid, then Week #3 take 1/2 in AM and 1 in PM, then Week #4 and on take 1 po bid 06/18 PRIMIDONE 42047512680 Bhupendra Kwan MD Medications Administered No information available. Allergies, Adverse Reactions, Alerts Allergy Name Reaction Description Start Date Severity Status Provider NONE Critical No Longer Active Esequiel Patel MD NONE Critical No Longer Active Bhupendra Kwan MD Observed no known allergies at Results Date Name Value Unit Range Flag Description Rx Refill: eRx Request for P RIMIDONE 50MG TAB [facility]_RR [id number]`PRIM IDONE 50MG TAB AMNE`50MG`U2`12 0 Tablet``TAKE 1 TABLET IN THE MORNING AND 2 TABLETS IN THE EVENING FOR WEEK 1,THEN TAKE 2 TABLETS TWICE DAILY AFTER``5`3711`[id number]`Rohan Fowler #[id number]*`[id number] [id number] 0`` B e-scripts messenger refill request Lab [...] performed and results reviewed. Total score [MMSE] [id number] Mild Total scor e [MoCA] MMSE SCORE [...] Follow up ORDERS Instructions for Staff 06/09 [id number] Documentation of current medicatio ns ORDERS CBC with Diff/Platelet 10/30 ORDERS Patient Instructions ORDERS Follow up [facility] 82838-7 MMSE ORDERS Vitamin B12 ORDERS T4 Free Direct ORDERS TSH ORDERS Methylmalonic Acid Serum (MMA) [id number] Documentation of current medicatio ns ORDERS CBC with Diff/Platelet 04/28 ORDERS Follow up with Neurologist or ARIEL ORDERS Follow up with Neurologist or ARIEL ORDERS Other Test ORDERS EMG left upper ext 0 CPT-86874 Nerve Conduction 5-6 studies CPT-93269 EMG with NCS (5+ muscles) - 1 limb 03/30 ORDERS Instructions for Staff 01/27 [id number] Documentation of current medicatio ns ORDERS Follow up ORDERS Instructions for Staff 10/23 [id number] Documentation of current medicatio ns ORDERS Instructions for Staff 10/23 [facility] 66793-4 MMSE ORDERS Follow up ORDERS Follow up ARIEL in clinic or telemedicine ORDERS Levetiracetam (Keppra) 07/22 [id number] Documentation of current medicatio ns ORDERS Follow up in clinic or telemedicine 04/08 [id number] MRI-Brain W/O ORDERS Physical Therapy ORDERS Follow up ORDERS Levetiracetam (Keppra) 04/03 ORDERS Follow up [id number] Documentation of current medicatio ns ORDERS Follow up ARIEL ORDERS Follow up after testing 2020 ORDERS EEG Ambulatory CPT-70453 EEG Setup CPT-87208 Amb EEG 12hrs 1min-26hrs () CPT-40115 Amb EEG 12hrs 1min-26hrs ([facility]) 6 ORDERS Physical Therapy ORDERS EEG Video ORDERS We will contact you with test results 03/18/06 CPT-72440 EEG Setup CPT-85027 Video EEG 2-12hrs () 11/14 CPT-44580 Video EEG 2-12hrs ([facility]) 202 03/18/06 [id number] Documentation of current medicatio ns ORDERS Sleep Study - APNA 7 ORDERS We will contact you with test results 202 03/15/29 [id number] Documentation of current medicatio ns Vital Signs [...]
[2024-06-25 09:48] LABS: Chloride* 101 mmol/L (96-114)
[2024-06-25 09:49] LABS: Albumin* 3.9 g/dL (3.3-5.0); Sodium* 138 mmol/L (135-149)
[2024-06-25 09:51] LABS: Anion Gap 7 mEq/L (7-15); Blood Urea Nitrogen* 32 mg/dL (7-30); Carbon Dioxide* 30 mmol/L (20-32); Creatinine* 1.9 mg/dL (0.5-1.5); Est. Creatinine Clearance* 22.93; Estimated Glomerular Filt Rate 33 ml/min; INR 1.38 (0.91-1.10); Prothrombin Time 17.9 Seconds
[2024-06-25 09:52] LABS: Alanine Aminotransferase* 18 U/L (4-50); Alkaline Phosphatase* 78 U/L (40-150); Aspartate Amino Transferase* 26 U/L (12-35); Bilirubin Direct* 0.2 mg/dL (0.0-0.5); Bilirubin Total* 0.8 mg/dL (0.1-1.5); Calcium* 8.7 mg/dL (8.4-10.6); Glucose* 114 mg/dL (60-115); Partial Thromboplastin Time* 33 Seconds (23-33); Total Protein* 6.4 g/dL (6.0-8.3)
[2024-06-25] MEDS: 0.9 % SODIUM CHLORIDE 1000 ml 1,000 ML IV (10:30)
== END 2024-06-25 14:36 | disposition home or self-care (01) ==
PROVIDERS: Emergency Provider Family Medicine; PCP Family Medicine
DX: K62.5 Hemorrhage of anus and rectum (principal); K59.00 Constipation, unspecified; Z79.01 Long term (current) use of anticoagulants
CPT/HCPCS: 36415; 80048; 80076; 85018; 85025; 85610; 85730; 93005; 96360; 99284; J7030

== ENCOUNTER 2024-08-28 10:31 | Outpatient (CLI) | payer BC, SELFPAY ==
[2024-08-28 12:09] LABS: Appearance Urine Slightly Cloudy (Clear); Bilirubin Urine Negative (Negative); Blood Urine Trace-intact (Negative); Color Urine Yellow (Yellow); Glucose Urine Negative (Negative); Ketones Urine Negative (Negative); Leukocyte Esterase Urine Trace (Negative); Nitrite Urine Negative (Negative); Protein Urine Negative (Negative); Urobilinogen Urine 0.2 (0.2-1.0); pH Urine 5.5 (5.0-8.5)
[2024-08-28 12:20] LABS: RBC Urine 0-2 (0-2); Squamous Epithelial Cell Urine Few (None-Few); WBC Urine 0-2 (0-5)
--- OUTSIDE RECORDS SUMMARY | 2024-08-29 00:07 | XMS_ITS | Clinical Summary ---
Author Organization [facility] Address [address] [place] [address] , [address] [place] [address] Phone Care Team Providers Care Leather Sponger Name Role Phone Aparna Machuca Unavailable Conditions or Problems Problem Name Problem Code Onset Date Status Entry Date Provider Comment Standard Description Annotate Carpal tunnel syndrome, left 33553457 (SNOMED CT) 06/09 Active 06/09 Ryan Oliveira MD Carpal tunnel syndrome Neutropenia 013922791 (SNOMED CT) 04/28 Active 04/28 Ryan Oliveira MD Neutropenia Abnormal labs - low sbc/lymph 535113373 (SNOMED CT) 03/29 Active 03/29 Ryan Oliveira MD Laboratory test result abnormal Memory loss 85957753 (SNOMED CT) 07/22 Resolved 07/22 Ryan Oliveira MD Amnesia Hand weakness, left 744646028 (SNOMED CT) 03/29 Active 03/29 Ryan Oliveira MD Weakness of hand Hand pain, left with new paresthesia 39158405 (SNOMED CT) 03/29 Active 03/29 Ryan Oliveira MD Hand pain Dementia 47432033 (SNOMED CT) 10/23 Active 10/23 Ryan Oliveira MD Dementia Memory loss 94187495 (SNOMED CT) 07/22 Removed 07/22 Shantell Yanez PA-C Amnesia Resting tremor 42303459 (SNOMED CT) 04/08 Active 04/09 Ryan lOiveira MD Resting tremor HEADACHE 644768362 (SNOMED CT) 10/30 Resolved 10/30 Ryan Oliveira MD Elevated level of transaminase and lactic acid dehydrogenase Sleep apnea 20709019 (SNOMED CT) 07/24 Resolved 07/24 Ryan Oliveira MD Sleep apnea Balance problem 688271840 (SNOMED CT) 04/08 Active 04/08 Ryan Oliveira MD Impairment of balance Epilepsy 71443851 (SNOMED CT) 12/01 Active 12/01 Shantell Yanez PA-C Epilepsy Frequent falls 293532027 (SNOMED CT) 11/22 Active 11/22 Esequiel Patel MD Recurrent falls Confusion 48296664 (SNOMED CT) 11/10 Active 11/10 Esequiel Patel MD Clouded consciousness HEADACHE 760187828 (SNOMED CT) 10/30 Removed 10/30 Chanel Aleksandr Elevated level of transaminase and lactic acid dehydrogenase Sleep apnea 06866930 (SNOMED CT) 07/24 Removed 07/24 Esequiel aPtel MD Sleep apnea ESSENTIAL TREMOR 139408621 (SNOMED CT) 06/18 Active 06/18 Bhupendra Kwan MD Essential tremor DIPLOPIA 18334390 (SNOMED CT) 06/18 Active 06/18 Bhupendra Kwan MD Diplopia HEADACHE 34374256 (SNOMED CT) 10/30 Inactive 10/30 Bhupendra Kwan MD Headache Medications Medication Instructions Start Date Stop Date Generic Name ND Provider GABAPENTIN 400 MG CAPS 4 caps or 400 mg 2x per day 06/09 gabapentin 80142152890 Ryan Oliveira MD GABAPENTIN 400 MG CAPS Take 1 capsule by mouth twice a day 06/09 gabapentin 47469820251 Ryan Oliveira MD MEMANTINE HCL 10 MG [...] effects until next visit's discussion. 06/09 memantine 25636770440 Ryan Oliveira MD FUROSEMIDE 20 MG TABS 06/09 furosemide 61481015342 Ryan Oliveira MD Imodium A-D 2 mg tablet 1 tab every 4 hours as needed for loose stools 06/09 loperamide 64935152160 Ryan Oliveira MD GABAPENTIN 400 MG CAPS 400 mg or 4 caps nightly and 2 cap in am; may increase am doze by 100 mg every 4 days until Lt hand pain under controlled or until 400 mg 2x per day 03/30 gabapentin 11423609233 Ryna Oliveira MD LISINOPRIL 20 MG TABS Take 1 tablet by mouth once a day 03/21 lisinopril 34131351634 Ryan Oliveira MD GABAPENTIN 400 MG CAPS 4 caps or 400 mg 2x per day 06/09 gabapentin 37224736251 Ryan Oliveira MD LOSARTAN POTASSIUM 25 MG TABS losartan 86257573965 Ryan Oliveira MD TORSEMIDE 20 MG TABS torsemide 160862459 01 Ryan Oliveira MD AMIODARONE HCL 400 MG TABS amiodarone 97067528332 Ryan Oliveira MD ACETAMINOPHEN 325 MG TABS acetaminophen 00631636523 Ryan Reveles MD ASPIRIN 325 MG TABS 81 mg aspirin 53086534698 Ryan Oliveira MD DULCOLAX 10 MG SUPP bisacodyl 0706843410 5 Ryan Oliveira MD FUROSEMIDE 20 MG TABS 06/09 furosemide 47830598571 Ryan Oliveira MD ALUM & MAG HYDROXIDE-SIMETH 1308-2549-993 MG/30ML SUSP alum-mag hydroxide-simeth 83707619540 Ryan Oliveira MD MILK OF MAGNESIA 2400 MG/30ML SUSP magnesium hydroxide 58786305576 Ryan Oliveira MD GABAPENTIN 400 MG CAPS 400 mg or 4 caps nightly 03/29 gabapentin 27427777355 Ryan Oliveira MD GABAPENTIN 400 MG CAPS 400 mg or 4 caps nightly and 2 cap in am; may increase am doze by 100 mg every 4 days until Lt hand pain under controlled or until 400 mg 2x per day 03/30 gabapentin 16257948357 Ryan Oliveira MD GABAPENTIN 400 MG CAPS 1 cap once daily 01/27 gabapentin 38467285370 Ryan Oliveira MD DONEPEZIL HCL 10 MG TABS 5 mg/night by mouth for 4 weeks, then 10 mg/night. May decrease to 5 mg/night if have bad nausea or significant side effects until next visit's discussion. 10/23 donepezil 67025914870 Ryan Oliveira MD GABAPENTIN 100 MG CAPS 4 cap po once daily 01/27 gabapentin 25787533137 Ryan Oliveira MD GABAPENTIN 400 MG CAPS 400 mg or 4 caps nightly 03/29 gabapentin 25044561802 Ryan Oliveira MD GABAPENTIN 400 MG CAPS 1 cap once nightly 03/29 gabapentin 20773877033 Ryan Oliveira MD DONEPEZIL HCL 10 MG TABS 10 mg/night. May decrease to 5 mg/night if have bad nausea or significant side effects until next visit's discussion. 03/29 donepezil 93636648855 Ryan Oliveira MD LEVETIRACETAM 500 MG TABS TAKE ONE TABLET BY MOUTH TWICE DAILY 07/16 levetiracetam 27184061928 Ryan Oliveira MD DONEPEZIL HCL 10 MG TABS 5 mg/night by mouth for 4 weeks, then 10 mg/night. May decrease to 5 mg/night if have bad nausea or significant side effects until next visit's discussion. 10/23 donepezil 03306530077 Ryan Oliveira MD SYSTANE ICAPS AREDS2 TABS 1 cap BID 10/23 vit c-vit i-so-ya-lutein-ze ax 90520331336 Ryan Oliveira MD PRESERVISION AREDS CAPS vitamins a,c,j-eonn-jvdwgf 73822093052 Ryan Oliveira MD A15-IGMCZW 1 MG CHEW meco balamin (vitamin b12) 25144330294 Ryan Oliveira MD RA FISH OIL 1000 MG CAPS 07/22 docosahexaenoic acid-epa 42088127138 Shantell Domíngueztraci PA-C VITAMIN A39-SINLI ACID 500-400 MCG TABS 07/22 vitamin n82-xgkal acid 51192945370 Shantell Yanez PA-C ELIQUIS 5 MG TABS 1 tab BID apixaban 31445398884 Shantell Yanez PA-C SYSTANE ICAPS AREDS2 TABS 1 cap BID 10/23 vit c-vit y-ck-fd-lutein-ze ax 09435641224 Shantell Yanez SOLE-C VITAMIN B-12 1000 MCG TABS 1 tab daily cyanocobalamin (vitamin b-12) 36703536568 Shantell Yanez PA-C GABAPENTIN 100 MG CAPS 4 cap po once daily 08/13 gabapentin 73294518353 Shantell Yanez PA-C GABAPENTIN 400 MG CAPS 1 cap once daily 08/13 gabapentin 82261577634 Shantell Domínguezil PA-C Imodium A-D 2 mg tablet 1 tab once daily for loose stools loperamide 23382416069 Shantell Domínguezil PA-C Imodium A-D 2 mg tablet 1 tab every 4 hours as needed for loose stools 06/09 loperamide 76296483060 Shantell Domínguezil PA-C MELATONIN 3 MG TABS 1 tab as needed for sleep melatonin 47872357944 Shantell Domíngueztraci PA-C METOPROLOL SUCCINATE ER 25 MG [id number]-AAX 1 tab BID metoprolol succinate 76594804118 Shantellaleksandra Domínguezil PA-C REFRESH OPTIVE 1-0.9 % GEL instill 2 drops in both eyes once daily for dry eyes carboxymethylcell ulose-glycern 60262449308 Shantellaleksandra Moralesucheril PA-C REFRESH OPTIVE 0.5-0.9 % SOLN instill 2 drops in both eyes twice a day for dry eyes carboxymethylcell ulose-glycern 24995792638 Shantell WHIPPLE-C SENNA 8.6 MG TABS give 2 tabs as needed for constipation sennosides 12848662925 Shantell WHIPPLE-C GABAPENTIN 400 MG CAPS Take 1 capsule by mouth every night 04/08 gabapentin 83331817335 Ryan Oliveira MD GABAPENTIN 400 MG CAPS Take 1 capsule by mouth every night 08/13 gabapentin 29278312250 Alyssia Lucas LPN ZYRTEC ALLERGY 10 MG TABS 04/03 cetirizine 27647976330 Alyssia Lucas LPN VITAMIN U11-TMPLO ACID 500-400 MCG TABS 07/22 vitamin q81-aicqy acid 16247928228 Alyssia Lucas LPN LEVETIRACETAM 500 MG TABS Take 1 tablet by mouth twice a day 07/16 levetiracetam 51974312821 Shantell WHIPPLE-C LEVETIRACETAM 500 MG TABS TAKE ONE TABLET BY MOUTH TWICE DAILY 07/16 levetiracetam 80030967531 Esequiel Patel MD GABAPENTIN 100 MG CAPS TAKE ONE CAPSULE BY MOUTH ONE TIME DAILY AT BEDTIME. may increase to 2 capsules at bedtime after 2 weeks if needed 08/13 gabapentin 40703613438 Esequiel Patel MD LEVETIRACETAM 250 MG TABS Take 1 tab by mouth every evening for 1 week. Then increase to 1 tab by mouth twice a day 12/01 levetiracetam 49655690899 Shantell WHIPPLE-C LEVETIRACETAM 500 MG TABS Take 1 tablet by mouth twice a day 07/16 levetiracetam 70104565491 Shantell WHIPPLE-C LEVETIRACETAM 250 MG TABS Take 1 tab by mouth every evening for 1 week. Then increase to 1 tab by mouth twice a day 12/01 levetiracetam 29497801545 Shantell Melinda Yanez PA-C ZYRTEC ALLERGY 10 MG TABS 04/03 cetirizine 15730334189 Shantell Melinda Sangin PA-C RA FISH OIL 1000 MG CAPS 07/22 docosahexaenoic acid-epa 53436914864 Shantell Melinda Sangin PA-C SYSTANE ICAPS AREDS2 TABS 07/22 vit c-vit j-xl-pt-lutein-ze ax 52156327076 Shantell Melinda Yanez GA-C LISINOPRIL 20 MG TABS Take 1 tablet by mouth once a day 03/21 lisinopril 34093599810 Esequiel Patel MD PRIMIDONE 50 MG TABS 1 tablet by mouth twice a day 08/01 primidone 84622781010 Zelda Greene RN WARFARIN SODIUM 3 MG TABS Take 3 tablets (9mg) every Tue, Fri and 2.5 tablets (7.5mg) all other days or as directed. 04/18 warfarin 06683667894 Esequiel Patel MD LORAZEPAM 0.5 MG TABS Take 1 tablet by mouth 06/05 lorazepam 86760367511 Esequiel Patel MD ATORVASTATIN CALCIUM 10 MG TABS Take 1 tablet by mouth every night 03/21 atorvastatin 39999996106 Esequiel Patel MD HYDROCHLOROTHIAZIDE 12.5 MG CAPS Take 1 capsule by mouth once a day 03/21 hydrochlorothiazi de 97010477411 Esequiel Patel MD ELIQUIS 5 MG TABS 07/22 apixaban 70408699058 Esequiel Patel MD WARFARIN SODIUM 3 MG TABS Take 3 tablets (9mg) every Tue, Fri and 2.5 tablets (7.5mg) all other days or as directed. 04/18 WARFARIN SODIUM 16696264609 Esequiel Patel MD HYDROCHLOROTHIAZIDE 12.5 MG CAPS TAKE ONE CAPSULE BY MOUTH ONE TIME DAILY 03/21 HYDROCHLOROTHIAZI DE 28372510154 Esequiel Patel MD ATORVASTATIN CALCIUM 10 MG TABS TAKE ONE TABLET BY MOUTH ONE TIME DAILY AT BEDTIME 03/21 ATORVASTATIN CALCIUM 43812477540 Esequiel Patel MD LISINOPRIL 20 MG TABS TAKE ONE TABLET BY MOUTH ONE TIME DAILY 03/21 LISINOPRIL 84053732964 Esequiel Patel MD LORAZEPAM 0.5 MG TABS Take 1 tablet by mouth 1 hour prior to imaging. 06/05 LORAZEPAM 62384788584 Esequiel Patel MD PRIMIDONE 50 MG TABS 1 po bid 08/01 PRIMIDONE 47702843102 Bhupendra Kwan MD PRIMIDONE 50 MG TABS Week #1 take 1 in AM and 2 in PM and then in Week #2 and thereafter take 2 po bid 09/05 PRIMIDONE 16917245618 Bhupendra Kwan MD PRIMIDONE 50 MG TABS Week #1 take 1/2 po qhs, then Week #2 take 1/2 po bid, then Week #3 take 1/2 in AM and 1 in PM, then Week #4 and on take 1 po bid 06/18 PRIMIDONE 44392535861 Bhupendra Kwan MD Medications Administered No information available. Allergies, Adverse Reactions, Alerts Allergy Name Reaction Description Start Date Severity Status Provider NONE Critical No Longer Active Esequiel Patel MD NONE Critical No Longer Active Bhupendra Kwan MD Observed no known allergies at Results Date Name Value Unit Range Flag Description Rx Refill: eRx Request for P RIMIDONE 50MG TAB [facility]_RR [id number]`PRIM IDONE 50MG TAB AMNE`50MG`U2`12 0 Tablet``TAKE 1 TABLET IN THE MORNING AND 2 TABLETS IN THE EVENING FOR WEEK 1,THEN TAKE 2 TABLETS TWICE DAILY AFTER``5`3`2010 711`[id number]`Rohan Fowler #[id number]*`[phone] [phone]`[id number]`` B e-scripts messenger refill request Lab [...] performed and results reviewed. Total score [MMSE] [id number] Mild Total scor e [MoCA] MMSE SCORE 20 Total scor e [MMSE] MEDS REVIEW Done Documenta tion of current medications (procedure) Plan of Care Type Date Detail Appointment 01:30 PM Shantell Yanez PA-C, [address], [address], [place], [address], Appointment 11:20 AM Ryan Oliveira MD, [address], [address], [place], [address], Pending order Follow up ARIEL Pending order [...] Follow up ORDERS Instructions for Staff 06/09 [facility]-[id number] Documentation of current medicatio ns ORDERS CBC with Diff/Platelet 10/30 ORDERS Patient Instructions ORDERS Follow up ARIEL LOINC 92863-9 MMSE ORDERS Vitamin B12 ORDERS T4 Free Direct ORDERS TSH ORDERS Methylmalonic Acid Serum (MMA) [facility]-[id number] Documentation of current medicatio ns ORDERS CBC with Diff/Platelet 04/28 ORDERS Follow up with Neurologist or ARIEL ORDERS Follow up with Neurologist or [facility] ORDERS Other Test ORDERS EMG left upper ext 0 CPT-43380 Nerve Conduction 5-6 studies CPT-94663 EMG with NCS (5+ muscles) - 1 limb 03/30 ORDERS Instructions for Staff 01/27 [facility]-[id number] Documentation of current medicatio ns ORDERS Follow up ORDERS Instructions for Staff 10/23 [facility]-[id number] Documentation of current medicatio ns ORDERS Instructions for Staff 10/23 LOINC 84260-5 MMSE ORDERS Follow up ORDERS Follow up ARIEL in clinic or telemedicine ORDERS Levetiracetam (Keppra) 07/22 [facility]-[id number] Documentation of current medicatio ns ORDERS Follow up in clinic or telemedicine 04/08 [id number] MRI-Brain W/O ORDERS Physical Therapy ORDERS Follow up ORDERS Levetiracetam (Keppra) 04/03 ORDERS Follow up [facility]-[id number] Documentation of current medicatio ns ORDERS Follow up ARIEL ORDERS Follow up after testing 2020 ORDERS EEG Ambulatory CPT-31816 EEG Setup CPT-40655 Amb EEG 12hrs 1min-26hrs () CPT-69165 Amb EEG 12hrs 1min-26hrs (Tech) 6 ORDERS Physical Therapy ORDERS EEG Video ORDERS We will contact you with test results 202 03/18/06 CPT-61438 EEG Setup CPT-91504 Video EEG 2-12hrs () 11/14 CPT-50743 Video EEG 2-12hrs (Tech) 202 03/18/06 [id number] Documentation of current medicatio ns ORDERS Sleep Study - APNA 7 ORDERS We will contact you with test results 202 03/15/29 [id number] Documentation of current medicatio ns Vital Signs [...]
== END 2024-08-28 10:32 | disposition home or self-care (01) ==
LOC: NPLBINS 10:32
PROVIDERS: PCP Family Medicine; Visit Provider Family Medicine
DX: R30.0 Dysuria (principal); R35.0 Frequency of micturition
CPT/HCPCS: 81001; 87086

== ENCOUNTER 2024-10-19 13:24 | Outpatient (REF) | payer BC, SELFPAY ==
[2024-10-19 14:06] LABS: Chloride* 101 mmol/L (96-114); Sodium* 138 mmol/L (135-149)
[2024-10-19 14:07] LABS: Potassium* 4.5 mmol/L (3.6-5.1)
[2024-10-19 14:10] LABS: Anion Gap 6 mEq/L (7-15); Blood Urea Nitrogen* 40 mg/dL (7-30); Calcium* 8.8 mg/dL (8.4-10.6); Carbon Dioxide* 31 mmol/L (20-32); Creatinine* 2.0 mg/dL (0.5-1.5); Estimated Glomerular Filt Rate 31 ml/min; Glucose* 163 mg/dL (60-115)
== END 2024-10-19 13:25 | disposition home or self-care (01) ==
LOC: NPINS 13:24
PROVIDERS: PCP Family Medicine; Visit Provider Nurse Practitioner Gerontology
DX: I50.9 Heart failure, unspecified (principal)
CPT/HCPCS: 80048

== ENCOUNTER 2024-11-02 12:53 | Outpatient (REF) | payer BC, SELFPAY ==
[2024-11-02 13:29] LABS: Chloride* 101 mmol/L (96-114)
[2024-11-02 13:30] LABS: Potassium* 4.5 mmol/L (3.6-5.1); Sodium* 137 mmol/L (135-149)
[2024-11-02 13:32] LABS: Blood Urea Nitrogen* 39 mg/dL (7-30); Creatinine* 1.8 mg/dL (0.5-1.5); Estimated Glomerular Filt Rate 36 ml/min
[2024-11-02 13:33] LABS: Anion Gap 4 mEq/L (7-15); Calcium* 8.8 mg/dL (8.4-10.6); Carbon Dioxide* 32 mmol/L (20-32); Glucose* 91 mg/dL (60-115)
--- OUTSIDE RECORDS SUMMARY | 2024-11-03 00:21 | XMS_ITS | Clinical Summary ---
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 Name Role Phone MedRec, MedRec Unavailable Conditions or Problems Problem Name Problem Code Onset Date Status Entry Date Provider Comment Standard Description Annotate Carpal tunnel syndrome, left 12692084 (SNOMED CT) 06/09 Active 06/09 Ryan Oliveira MD Carpal tunnel syndrome Neutropenia 432611483 (SNOMED CT) 04/28 Active 04/28 Ryan Oliveira MD Neutropenia Abnormal labs - low sbc/lymph 835464852 (SNOMED CT) 03/29 Active 03/29 Ryan Oliveira MD Laboratory test result abnormal Memory loss 51952813 (SNOMED CT) 07/22 Resolved 07/22 Ryan Oliveira MD Amnesia Hand weakness, left 842209412 (SNOMED CT) 03/29 Active 03/29 Ryan Oliveira MD Weakness of hand Hand pain, left with new paresthesia 79717084 (SNOMED CT) 03/29 Active 03/29 Ryan Oliveira MD Hand pain Dementia 26562865 (SNOMED CT) 10/23 Active 10/23 Ryan Oliveira MD Dementia Memory loss 79654252 (SNOMED CT) 07/22 Removed 07/22 Shantell Yanez PA-C Amnesia Resting tremor 16584194 (SNOMED CT) 04/08 Active 04/09 Ryan Oliveira MD Resting tremor HEADACHE 774818109 (SNOMED CT) 10/30 Resolved 10/30 Ryan Oliveira MD Elevated level of transaminase and lactic acid dehydrogenase Sleep apnea 27777625 (SNOMED CT) 07/24 Resolved 07/24 Ryan Oliveira MD Sleep apnea Balance problem 469010528 (SNOMED CT) 04/08 Active 04/08 Ryan Oliveira MD Impairment of balance Epilepsy 72161928 (SNOMED CT) 12/01 Active 12/01 Shantell Yanez PA-C Epilepsy Frequent falls 771275323 (SNOMED CT) 11/22 Active 11/22 Esequiel Patel MD Recurrent falls Confusion 17614776 (SNOMED CT) 11/10 Active 11/10 Esequiel Patel MD Clouded consciousness HEADACHE 570028091 (SNOMED CT) 10/30 Removed 10/30 Chanel Brandon Elevated level of transaminase and lactic acid dehydrogenase Sleep apnea 02126699 (SNOMED CT) 07/24 Removed 07/24 Esequiel Patel MD Sleep apnea ESSENTIAL TREMOR 212020693 (SNOMED CT) 06/18 Active 06/18 Bhupendra Kwan MD Essential tremor DIPLOPIA 29427388 (SNOMED CT) 06/18 Active 06/18 Bhupendra Kwan MD Diplopia HEADACHE 68273725 (SNOMED CT) 10/30 Inactive 10/30 Bhupendra Kwan MD Headache Medications Medication Instructions Start Date Stop Date Generic Name ND Provider GABAPENTIN 400 MG CAPS 4 caps or 400 mg 2x per day 06/09 gabapentin 38373638549 Ryan Oliveira MD GABAPENTIN 400 MG CAPS Take 1 capsule by mouth twice a day 06/09 gabapentin 22595061007 Ryan Oliveira MD MEMANTINE HCL 10 MG [...] effects until next visit's discussion. 06/09 memantine 57084283912 Ryan Oliveira MD FUROSEMIDE 20 MG TABS 06/09 furosemide 17367156358 Ryan Oliveira MD Imodium A-D 2 mg tablet 1 tab every 4 hours as needed for loose stools 06/09 loperamide 21870196817 Ryan Oliveira MD GABAPENTIN 400 MG CAPS 400 mg or 4 caps nightly and 2 cap in am; may increase am doze by 100 mg every 4 days until Lt hand pain under controlled or until 400 mg 2x per day 03/30 gabapentin 49377362398 Ryan Oliveira MD LISINOPRIL 20 MG TABS Take 1 tablet by mouth once a day 03/21 lisinopril 00662420122 Ryan Oliveira MD GABAPENTIN 400 MG CAPS 4 caps or 400 mg 2x per day 06/09 gabapentin 13476136165 Ryan Oliveira MD LOSARTAN POTASSIUM 25 MG TABS losartan 96382589565 Ryan Oliveira MD TORSEMIDE 20 MG TABS torsemide 800649676 01 Ryan Oliveira MD AMIODARONE HCL 400 MG TABS amiodarone 59182948176 Ryan Oliveira MD ACETAMINOPHEN 325 MG TABS acetaminophen 83782954071 Ryan Reveles MD ASPIRIN 325 MG TABS 81 mg aspirin 12105081960 Ryan Oliveira MD DULCOLAX 10 MG SUPP bisacodyl 6885127233 5 Ryan Oliveira MD FUROSEMIDE 20 MG TABS 06/09 furosemide 31651115126 Ryan Oliveira MD ALUM & MAG HYDROXIDE-SIMETH 1122-0232-786 MG/30ML SUSP alum-mag hydroxide-simeth 58428600530 Ryan Oliveira MD MILK OF MAGNESIA 2400 MG/30ML SUSP magnesium hydroxide 69155142759 Ryan Oliveira MD GABAPENTIN 400 MG CAPS 400 mg or 4 caps nightly 03/29 gabapentin 21268608659 Ryan Oliveira MD GABAPENTIN 400 MG CAPS 400 mg or 4 caps nightly and 2 cap in am; may increase am doze by 100 mg every 4 days until Lt hand pain under controlled or until 400 mg 2x per day 03/30 gabapentin 72862294932 Ryan Oliveira MD GABAPENTIN 400 MG CAPS 1 cap once daily 01/27 gabapentin 77608232456 Ryan Oliveira MD DONEPEZIL HCL 10 MG TABS 5 mg/night by mouth for 4 weeks, then 10 mg/night. May decrease to 5 mg/night if have bad nausea or significant side effects until next visit's discussion. 10/23 donepezil 16675116021 Rayn Oliveira MD GABAPENTIN 100 MG CAPS 4 cap po once daily 01/27 gabapentin 52489001829 Ryan Oliveira MD GABAPENTIN 400 MG CAPS 400 mg or 4 caps nightly 03/29 gabapentin 06136303139 Ryan Oliveira MD GABAPENTIN 400 MG CAPS 1 cap once nightly 03/29 gabapentin 58698114606 Ryan Oliveira MD DONEPEZIL HCL 10 MG TABS 10 mg/night. May decrease to 5 mg/night if have bad nausea or significant side effects until next visit's discussion. 03/29 donepezil 25314069022 Ryan Oliveira MD LEVETIRACETAM 500 MG TABS TAKE ONE TABLET BY MOUTH TWICE DAILY 07/16 levetiracetam 40100836079 Ryan Oliveira MD DONEPEZIL HCL 10 MG TABS 5 mg/night by mouth for 4 weeks, then 10 mg/night. May decrease to 5 mg/night if have bad nausea or significant side effects until next visit's discussion. 10/23 donepezil 76100766047 Ryan Oliveira MD SYSTANE ICAPS AREDS2 TABS 1 cap BID 10/23 vit c-vit v-yt-jt-lutein-ze ax 06909265226 Ryan Oliveira MD PRESERVISION AREDS CAPS vitamins a,c,l-wvhj-rwexup 98542615773 Ryan Oliveira MD [id number] 1 MG CHEW meco balamin (vitamin b12) 40974779206 Ryan Oliveira MD RA FISH OIL 1000 MG CAPS 07/22 docosahexaenoic acid-epa 08912211874 Shantell Domíngueztraci PA-C VITAMIN S69-HZEHJ ACID 500-400 MCG TABS 07/22 vitamin w14-odmch acid 41486856280 Shantell Domíngueztraci WHIPPLE-C ELIQUIS 5 MG TABS 1 tab BID apixaban 45112793504 Shantell Domíngueztraci PA-C SYSTANE ICAPS AREDS2 TABS 1 cap BID 10/23 vit c-vit s-wl-bk-lutein-ze ax 05198007310 Shantell Yanez SOLE-C VITAMIN B-12 1000 MCG TABS 1 tab daily cyanocobalamin (vitamin b-12) 85282736066 Shantell Domíngueztraci PA-C GABAPENTIN 100 MG CAPS 4 cap po once daily 09/17 gabapentin 12981833641 Shantell Domínguezil PA-C GABAPENTIN 400 MG CAPS 1 cap once daily 09/17 gabapentin 50902596062 Shantell Domínguezil PA-C Imodium A-D 2 mg tablet 1 tab once daily for loose stools loperamide 65292394970 Shantell Domínguezil PA-C Imodium A-D 2 mg tablet 1 tab every 4 hours as needed for loose stools 06/09 loperamide 95257379491 Shantell Domínguezil PA-C MELATONIN 3 MG TABS 1 tab as needed for sleep melatonin 96222998424 Shantellaleksandra Domíngueztraci PA-C METOPROLOL SUCCINATE ER 25 MG [id number] 1 tab BID metoprolol succinate 81541150129 Shantellaleksandra Moralesemilyil PA-C REFRESH OPTIVE 1-0.9 % GEL instill 2 drops in both eyes once daily for dry eyes carboxymethylcell ulose-glycern 07659351152 Shantellaleksandra Moralesemilyil PA-C REFRESH OPTIVE 0.5-0.9 % SOLN instill 2 drops in both eyes twice a day for dry eyes carboxymethylcell ulose-glycern 77738391937 Shantell Yanez PA-C SENNA 8.6 MG TABS give 2 tabs as needed for constipation sennosides 65394932806 Shantell Yanez PA-C GABAPENTIN 400 MG CAPS Take 1 capsule by mouth every night 04/08 gabapentin 26115748542 Ryan Oliveira MD GABAPENTIN 400 MG CAPS Take 1 capsule by mouth every night 09/17 gabapentin 25384874001 Alyssia Lucas LPN ZYRTEC ALLERGY 10 MG TABS 04/03 cetirizine 81353257660 Alyssia Lucas LPN VITAMIN P52-WTDKG ACID 500-400 MCG TABS 07/22 vitamin u98-dhkbl acid 72673486500 Alyssia Lucas LPN LEVETIRACETAM 500 MG TABS Take 1 tablet by mouth twice a day 07/16 levetiracetam 24938257246 Shantell Yanez PA-C LEVETIRACETAM 500 MG TABS TAKE ONE TABLET BY MOUTH TWICE DAILY 07/16 levetiracetam 09322508037 Esequiel Patel MD GABAPENTIN 100 MG CAPS TAKE ONE CAPSULE BY MOUTH ONE TIME DAILY AT BEDTIME. may increase to 2 capsules at bedtime after 2 weeks if needed 09/17 gabapentin 35410474898 Esequiel Patel MD LEVETIRACETAM 250 MG TABS Take 1 tab by mouth every evening for 1 week. Then increase to 1 tab by mouth twice a day 12/01 levetiracetam 04216604827 Shantell Yanez PA-C LEVETIRACETAM 500 MG TABS Take 1 tablet by mouth twice a day 07/16 levetiracetam 04622743185 Shantell Yanez PA-C LEVETIRACETAM 250 MG TABS Take 1 tab by mouth every evening for 1 week. Then increase to 1 tab by mouth twice a day 12/01 levetiracetam 69325469719 Shantell Yanez [place]-C ZYRTEC ALLERGY 10 MG TABS 04/03 cetirizine 11628312067 [facility] RA FISH OIL 1000 MG CAPS 07/22 docosahexaenoic acid-epa 09081087841 Shantell [facility] SYSTANE ICAPS AREDS2 TABS 07/22 vit c-vit f-zk-qf-lutein-ze ax 69310954940 Shantell Yanez [place]- LISINOPRIL 20 MG TABS Take 1 tablet by mouth once a day 03/21 lisinopril 05995729253 Esequiel Patel MD PRIMIDONE 50 MG TABS 1 tablet by mouth twice a day 08/01 primidone 28542103946 Zelda Greene RN WARFARIN SODIUM 3 MG TABS Take 3 tablets (9mg) every Tue, Fri and 2.5 tablets (7.5mg) all other days or as directed. 04/18 warfarin 78899044526 Esequiel Patel MD LORAZEPAM 0.5 MG TABS Take 1 tablet by mouth 06/05 lorazepam 52503825603 Esequiel Patel MD ATORVASTATIN CALCIUM 10 MG TABS Take 1 tablet by mouth every night 03/21 atorvastatin 33951712104 Esequiel Patel MD HYDROCHLOROTHIAZIDE 12.5 MG CAPS Take 1 capsule by mouth once a day 03/21 hydrochlorothiazi de 37123951309 Esequiel Patel MD ELIQUIS 5 MG TABS 07/22 apixaban 25417564615 Esequiel Patel MD WARFARIN SODIUM 3 MG TABS Take 3 tablets (9mg) every Tue, Fri and 2.5 tablets (7.5mg) all other days or as directed. 04/18 WARFARIN SODIUM 93847670621 Esequiel Patel MD HYDROCHLOROTHIAZIDE 12.5 MG CAPS TAKE ONE CAPSULE BY MOUTH ONE TIME DAILY 03/21 HYDROCHLOROTHIAZI DE 03146658566 Esequiel Patel MD ATORVASTATIN CALCIUM 10 MG TABS TAKE ONE TABLET BY MOUTH ONE TIME DAILY AT BEDTIME 03/21 ATORVASTATIN CALCIUM 69175293524 Esequiel Patel MD LISINOPRIL 20 MG TABS TAKE ONE TABLET BY MOUTH ONE TIME DAILY 03/21 LISINOPRIL 55108824046 Esequiel Patel MD LORAZEPAM 0.5 MG TABS Take 1 tablet by mouth 1 hour prior to imaging. 06/05 LORAZEPAM 58481113373 Esequiel Patel MD PRIMIDONE 50 MG TABS 1 po bid 08/01 PRIMIDONE 81682288983 Bhupendra Kwan MD PRIMIDONE 50 MG TABS Week #1 take 1 in AM and 2 in PM and then in Week #2 and thereafter take 2 po bid 09/05 PRIMIDONE 89735656473 Bhupendra Kwan MD PRIMIDONE 50 MG TABS Week #1 take 1/2 po qhs, then Week #2 take 1/2 po bid, then Week #3 take 1/2 in AM and 1 in PM, then Week #4 and on take 1 po bid 06/18 PRIMIDONE 11619679060 Bhupendra Kwan MD Medications Administered No information available. Allergies, Adverse Reactions, Alerts Allergy Name Reaction Description Start Date Severity Status Provider NONE Critical No Longer Active Esequiel Patel MD NONE Critical No Longer Active Bhupendra Kwan MD Observed no known allergies at Results Date Name Value Unit Range Flag Description Rx Refill: eRx Request for P RIMIDONE 50MG TAB AMNE [facility]_RR [id number]`PRIM IDONE 50MG TAB AMNE`50MG`U2`12 0 Tablet``TAKE 1 TABLET IN THE MORNING AND 2 TABLETS IN THE EVENING FOR WEEK 1,THEN TAKE 2 TABLETS TWICE DAILY AFTER``5`3`2010`Rohan Fowler #[id number]*`[phone]`[id number]`` B e-scripts messenger refill request Lab [...] performed and results reviewed. Total score [MMSE] [id number] Mild Total scor e [MoCA] MMSE SCORE 20 Total scor e [MMSE] MEDS REVIEW Done Documenta tion of current medications (procedure) Plan of Care Type Date Detail Appointment 01:30 PM Shantell Yanez PA-C, [address], [address], [place], [address], Appointment 11:20 AM Ryan Oliveira MD, [address], [address], [place], [address], Pending order Follow up ARIEL Pending order [...] Follow up ORDERS Instructions for Staff 06/09 [facility]-[id number] Documentation of current medicatio ns ORDERS CBC with Diff/Platelet 10/30 ORDERS Patient Instructions ORDERS Follow up ARIEL LOINC 10572-9 MMSE ORDERS Vitamin B12 ORDERS T4 Free Direct ORDERS TSH ORDERS Methylmalonic Acid Serum (MMA) [facility]-[id number] Documentation of current medicatio ns ORDERS CBC with Diff/Platelet 04/28 ORDERS Follow up with Neurologist or ARIEL ORDERS Follow up with Neurologist or ARIEL ORDERS Other Test ORDERS EMG left upper ext 0 CPT-04858 Nerve Conduction 5-6 studies CPT-69177 EMG with NCS (5+ muscles) - 1 limb 03/30 ORDERS Instructions for Staff 01/27 [facility]-[id number] Documentation of current medicatio ns ORDERS Follow up ORDERS Instructions for Staff 10/23 [facility]-[id number] Documentation of current medicatio ns ORDERS Instructions for Staff 10/23 [facility]-6 MMSE ORDERS Follow up ORDERS Follow up ARIEL in clinic or telemedicine ORDERS Levetiracetam (Keppra) 07/22 [facility]-[id number] Documentation of current medicatio ns ORDERS Follow up in clinic or telemedicine 04/08 [id number] MRI-Brain W/O ORDERS Physical Therapy ORDERS Follow up ORDERS Levetiracetam (Keppra) 04/03 ORDERS Follow up [facility]-[id number] Documentation of current medicatio ns ORDERS Follow up ARIEL ORDERS Follow up after testing 2020 ORDERS EEG Ambulatory CPT-15869 EEG Setup CPT-97301 Amb EEG 12hrs 1min-26hrs () CPT-88400 Amb EEG 12hrs 1min-26hrs (Tech) 6 ORDERS Physical Therapy ORDERS EEG Video ORDERS We will contact you with test results 202 03/18/06 CPT-42526 EEG Setup CPT-65864 Video EEG 2-12hrs () 11/14 CPT-69057 Video EEG 2-12hrs (Tech) 202 03/18/06 [id number] Documentation of current medicatio ns ORDERS Sleep Study - APNA 7 ORDERS We will contact you with test results 202 03/15/29 [id number] Documentation of current medicatio ns Vital Signs [...]
== END 2024-11-02 12:54 | disposition home or self-care (01) ==
LOC: NPINS 12:53
PROVIDERS: PCP Family Medicine; Visit Provider Family Medicine
DX: R60.0 Localized edema (principal)
CPT/HCPCS: 80048

== ENCOUNTER 2025-03-08 10:43 | Outpatient (REF) | payer BC, SELFPAY ==
[2025-03-08 11:35] LABS: Chloride* 97 mmol/L (96-114); Potassium* 4.2 mmol/L (3.6-5.1); Sodium* 136 mmol/L (135-149)
[2025-03-08 11:38] LABS: Anion Gap 8 mEq/L (7-15); Blood Urea Nitrogen* 34 mg/dL (7-30); Calcium* 8.9 mg/dL (8.4-10.6); Carbon Dioxide* 31 mmol/L (20-32); Creatinine* 1.7 mg/dL (0.5-1.5); Estimated Glomerular Filt Rate 38 ml/min; Glucose* 176 mg/dL (60-115)
== END 2025-03-08 10:44 | disposition home or self-care (01) ==
LOC: NPINS 10:43
PROVIDERS: PCP Family Medicine; Visit Provider Nurse Practitioner Gerontology
DX: I50.9 Heart failure, unspecified (principal)
CPT/HCPCS: 80048